=== PATIENT | male | born 1965 | race African-American/Black ===

== ENCOUNTER → 2017-07-14 | Outpatient (CLI) | payer SELFPAY | END | disposition home or self-care (01) | LOC: KCIC 11:44 | DX: S62.101D Fracture of unspecified carpal bone, right wrist, subsequent encounter for fracture with routine healing (principal); X58.XXXD Exposure to other specified factors, subsequent encounter | CPT/HCPCS: 73110 ==

== ENCOUNTER 2019-11-25 13:08 | Emergency (ER) | payer OTHER ==
[~2019-11-25] VITALS: Ht 170.2 cm; Wt 100.0 kg
[~2019-11-25 13:08] MED LIST: LISI1TAB20 PO
[2019-11-25] MEDS ORDERED: INSULIN LISPRO 300 UNITS/3 ML VIAL. SQ ONE (13:30)
[2019-11-25] MEDS ORDERED: IV NORMAL SALINE 1000ML BAG 1,000 ML IV ONE (13:30)
[2019-11-25 13:40] LABS: BILIRUBIN,URINE NEGATIVE (NEG); CLARITY,URINE CLEAR; COLOR,URINE YELLOW; NITRITE,URINE NEGATIVE (NEG); PH,URINE 5.5 (<5.0-8.0); PROTEIN,URINE NEGATIVE (NEG-TRACE); UROBILINOGEN,URINE 0.2 mg/dL (0.2 mg/dL)
[2019-11-25 13:46] LABS: BASO % 1 % (0-3); EOS # 0.1 x10^3/uL (0.0-0.7); EOS % 2 % (0-3); HEMATOCRIT 39.7 % (39.0-53.0); HEMOGLOBIN 13.4 g/dL (13.0-17.5); LYMPH # 1.6 x10^3/uL (1.0-4.8); LYMPH % 28 % (24-48); MEAN CORPUSCULAR HEMOGLOBIN 29 pg (25-35); MEAN CORPUSCULAR HGB CONC 34 g/dL (31-37); MEAN CORPUSCULAR VOLUME 86 fL (79-100); MONO # 0.5 x10^3/uL (0.0-1.1); MONO % 8 % (0-9); NEUT # 3.5 x10^3/uL (1.8-7.7); NEUT % 60 % (31-73); PLATELET COUNT 227 x10^3/uL (140-400); RED BLOOD COUNT 4.62 x10^6/uL (4.30-5.70); RED CELL DISTRIBUTION WIDTH 13.1 % (11.5-14.5); WHITE BLOOD COUNT 5.8 x10^3/uL (4.0-11.0)
[2019-11-25 14:02] LABS: ALBUMIN 3.7 g/dL (3.4-5.0); ALBUMIN/GLOBULIN RATIO 0.9 (1.0-1.7); CALCIUM 8.9 mg/dL (8.5-10.1); GFR 42.7; POTASSIUM 4.8 mmol/L (3.5-5.1); TOTAL BILIRUBIN 0.4 mg/dL (0.2-1.0); TOTAL PROTEIN 7.8 g/dL (6.4-8.2)
[2019-11-25 14:09] LABS: BACTERIA,URINE 0 /HPF (0-FEW); RBC,URINE OCC /HPF (0-2); WBC,URINE OCC /HPF (0-4)
[2019-11-25] MEDS ORDERED: INSULIN LISPRO 300 UNITS/3 ML VIAL. SQ STA (15:10)
[2019-11-25] MEDS ORDERED: METF500T16 PO (16:14)
--- NOTE | 2019-11-25 16:15 | PHYS DOC ---
Past Medical History Past Medical History: Hypertension Past Surgical History: Other Additional Past Surgical Histo: hernia repair Smoking Status: Never Smoker Alcohol Use: Occasionally Drug Use: None General Adult EDM: Chief Complaint: WEAKNESS/GENERALIZED HPI: HPI: Patient is a 54-year-old male who presents with a two-week history of polyuria polydipsia and general malaise. He also states that he has had some progressive lower extremity burning pain and some visual changes that have occurred over the course of the last month. At some point in the past he has been told that he was a borderline diabetic. He has not taken any diabetic medications. He does however take medication for high blood pressure. [] Review of Systems: Review of Systems: Constitutional: Denies fever or chills. [] Eyes: Gradual change in visual acuity. [] HENT: Denies nasal congestion or sore throat. [] Respiratory: Denies cough or shortness of breath. [] Cardiovascular: Denies chest pain or edema. [] GI: Denies abdominal pain, nausea, vomiting, bloody stools or diarrhea. [] : Denies dysuria. [] Musculoskeletal: Denies back pain or joint pain. [] Integument: Denies rash. [] Neurologic: Paresthesias lower legs [] Endocrine: Per HPI] Lymphatic: Denies swollen glands. [] Psychiatric: Denies depression or anxiety. [] Heart Score: Risk Factors: Risk Factors: DM, Current or recent (<one month) smoker, HTN, HLP, family history of CAD, obesity. Risk Scores: Score 0 - 3: 2.5% MACE over next 6 weeks - Discharge Home Score 4 - 6: 20.3% MACE over next 6 weeks - Admit for Clinical Observation Score 7 - 10: 72.7% MACE over next 6 weeks - Early Invasive Strategies Current Medications: Current Medications Medications (Trade) Dose Ordered Sig/Ely Start Time Stop Time Status Last Admin Dose Admin Insulin Human Lispro (HumaLOG) 8 units 1X STAT 11/25/19 15:10 11/25/19 15:14 DC 11/25/19 15:18 8 UNITS Sodium Chloride 1,000 ml @ 1,000 mls/hr 1X ONCE 11/25/19 13:30 11/25/19 14:29 DC 11/25/19 13:33 1,000 MLS/HR Allergies: Allergies: Allergies Coded Allergies Type Severity Reaction Last Updated Verified No Known Drug Allergies 11/18/13 No Physical Exam: PE: Constitutional: Well developed, well nourished, no acute distress, non-toxic appearance. [] HENT: Normocephalic, atraumatic, bilateral external ears normal, oropharynx moist, no oral exudates, nose normal. [] Eyes: PERRLA, EOMI, conjunctiva normal, no discharge. [] Neck: Normal range of motion, no tenderness, supple, no stridor. [] Cardiovascular:Heart rate regular rhythm, no murmur [] Lungs & Thorax: Bilateral breath sounds clear to auscultation [] Abdomen: Morbidly obese, bowel sounds normal, soft, no tenderness, no masses, no pulsatile masses. [] Skin: Warm, dry, no erythema, no rash. [] Back: No tenderness, no CVA tenderness. [] Extremities: No tenderness, no cyanosis, no clubbing, ROM intact, no edema. [] Neurologic: Alert and oriented X 3, normal motor function, normal sensory function, no focal deficits noted. [] Psychologic: Anxious [] Current Patient Data: Labs: Laboratory Tests Test 11/25/19 13:18 11/25/19 13:24 11/25/19 13:25 Glucose (Fingerstick) 517 mg/dL (70-99) *H Urine Collection Type Unknown Urine Color Yellow Urine Clarity Clear Urine pH 5.5 (<5.0-8.0) Urine Specific [place] >=1.030 (1.000-1.030) Urine Protein Negative mg/dL (NEG-TRACE) Urine Glucose (UA) >=1000 mg/dL (NEG) Urine Ketones (Stick) 15 mg/dL (NEG) Urine Blood Negative (NEG) Urine Nitrite Negative (NEG) Urine Bilirubin Negative (NEG) Urine Urobilinogen Dipstick 0.2 mg/dL (0.2 mg/dL) Urine Leukocyte Esterase Negative (NEG) Urine RBC Occ /HPF (0-2) Urine WBC Occ /HPF (0-4) Urine Bacteria 0 /HPF (0-FEW) White Blood Count 5.8 x10^3/uL (4.0-11.0) Red Blood Count 4.62 x10^6/uL (4.30-5.70) Hemoglobin 13.4 g/dL (13.0-17.5) Hematocrit 39.7 % (39.0-53.0) Mean Corpuscular Volume 86 fL (79-100) Mean Corpuscular Hemoglobin 29 pg (25-35) Mean Corpuscular Hemoglobin Concent 34 g/dL (31-37) Red Cell Distribution Width 13.1 % (11.5-14.5) Platelet Count 227 x10^3/uL (140-400) Neutrophils (%) (Auto) 60 % (31-73) Lymphocytes (%) (Auto) 28 % (24-48) Monocytes (%) (Auto) 8 % (0-9) Eosinophils (%) (Auto) 2 % (0-3) Basophils (%) (Auto) 1 % (0-3) Neutrophils # (Auto) 3.5 x10^3/uL (1.8-7.7) Lymphocytes # (Auto) 1.6 x10^3/uL (1.0-4.8) Monocytes # (Auto) 0.5 x10^3/uL (0.0-1.1) Eosinophils # (Auto) 0.1 x10^3/uL (0.0-0.7) Basophils # (Auto) 0.0 x10^3/uL (0.0-0.2) Sodium Level 133 mmol/L (136-145) L Potassium Level 4.8 mmol/L (3.5-5.1) Chloride Level 96 mmol/L (98-107) L Carbon Dioxide Level 30 mmol/L (21-32) Anion Gap 7 (6-14) Blood Urea Nitrogen 22 mg/dL (8-26) Creatinine 2.0 mg/dL (0.7-1.3) H Estimated GFR (Cockcroft-Gault) 42.7 BUN/Creatinine Ratio 11 (6-20) Glucose Level 622 mg/dL (70-99) *H Calcium Level 8.9 mg/dL (8.5-10.1) Total Bilirubin 0.4 mg/dL (0.2-1.0) Aspartate Amino Transferase (AST) 18 U/L (15-37) Alanine Aminotransferase (ALT) 32 U/L (16-63) Alkaline Phosphatase 104 U/L (46-116) Total Protein 7.8 g/dL (6.4-8.2) Albumin 3.7 g/dL (3.4-5.0) Albumin/Globulin Ratio 0.9 (1.0-1.7) L Laboratory Tests 11/25/19 13:25 Laboratory Tests 11/25/19 13:25 Vital Signs: Vital Signs Date Time Temp Pulse Resp B/P (MAP) Pulse Ox O2 Delivery O2 Flow Rate FiO2 11/25/19 13:20 98.4 81 16 141/75 (97) 96 Room Air 98.4 EKG: EKG: [] Radiology/Procedures: Radiology/Procedures: [] Course & Med Decision Making: Course & Med Decision Making Pertinent Labs and Imaging studies reviewed. (See chart for details) [ED course: Evaluation reveals a 54-year-old male with new to him diabetes. His blood sugar was in the 500 range. He was given a total of 18 units of regular insulin during his stay in the department. He remained essentially asymptomatic here. He did not have an anion gap. I will go ahead and start him on metfor min as an outpatient but have implored him to follow-up with a primary care physician in the next 1 week at the most. Given him advice on the diet and distracted him that it is extremely important that he take his diabetic medication as directed.] Dragon Disclaimer: Dragon Disclaimer: This electronic medical record was generated, in whole or in part, using a voice recognition dictation system. Departure Departure Impression: Primary Impression: New onset type 2 diabetes mellitus Disposition: HOME, SELF-CARE Condition: STABLE Referrals: Myron BARRAGAN MD (PCP) Patient Instructions: 2400 Calorie Diet for Diabetes Meal Planning, Diabetes Meal Planning Guide, Diabetes and Exercise-SportsMed, Diabetes and Foot Care, Diabetes and Standards of Medical Care, Diabetes, Keeping Your Heart and Blood Vessels Healthy, Diet - How To Increase Fiber In The Meal Plan For Diabetes, How to Avoid Diabetes Problems, Type 2 Diabetes Mellitus, Adult Additional Instructions: It is incredibly important that she follow-up with Dr. Barragan this coming week for a recheck. Please take your medication as directed. Carefully read your discharge instructions as there is an enormous amount of very important information included. Return to the emergency department with any new or concerning symptoms Scripts Metformin Hcl (METFORMIN HCL) 500 Mg Tablet 500 MG PO BIDWMEALS for ANTI-DIABETIC for 90 Days, #180 TAB 2 Refills Increase to 2 tablets in the morning and 1 tablet in the evening after 1 week and then increase to 2 tablets in the morning and 2 tablets at night after 2 full weeks of therapy. Prov: MO LYNN DO 11/25/19 MO LYNN DO November 25, 2019 16:14
[2019-11-25 16:16] VITALS: BP 136/76
== END 2019-11-25 16:31 | disposition home or self-care (01) ==
LOC: ER 13:08
DX: E11.9 Type 2 diabetes mellitus without complications (principal); R53.83 Other fatigue; R35.8 Other polyuria; I10 Essential (primary) hypertension; Z98.890 Other specified postprocedural states
CPT/HCPCS: 36415; 80053; 81001; 82962; 85025; 96372; 99285; J1815; J7030

== ENCOUNTER 2020-02-06 11:57 | Emergency (ER) | payer OTHER ==
[~2020-02-06] VITALS: Ht 170.2 cm; Wt 106.0 kg
[~2020-02-06 11:57] MED LIST changes: +METF500T16 PO
[2020-02-06 12:04] VITALS: BP 155/90
[2020-02-06] MEDS ORDERED: HYDROcodone/APAP 5/325MG 1 TAB TABLET PO ONE (12:15)
--- NOTE | 2020-02-06 12:18 | PHYS DOC ---
Past Medical History Past Medical History: Hypertension Past Surgical History: Other Additional Past Surgical Histo: hernia repair Smoking Status: Never Smoker Alcohol Use: Occasionally Drug Use: None General Adult EDM: Chief Complaint: ANKLE PROBLEM HPI: HPI: Patient is a 54 year old male who presents with was getting out of a vehicle and stepped backward with his right leg and stepped on a pile of dirt. This caused him to roll his right ankle outward. He states he can walk on it but cannot put much pressure on it. He states that pressure makes it worse. He has pain to the posterior malleus, lateral medial malleolus. 1+ swelling. There is tenderness to the lateral, medial, posterior malleolus. He states it does not radiate. He states is a throbbing type pain that he rates at 9 out of 10. He states he did not take any medications prior to coming. He states he has a history of hypertension, diabetes, hernia repair. Patient denies numbness or tingling, coolness of the skin, skin color change, laxity in the joint. Review of Systems: Review of Systems: Constitutional: Denies fever or chills. [] Eyes: Denies change in visual acuity. [] HENT: Denies nasal congestion or sore throat. [] Respiratory: Denies cough or shortness of breath. [] Cardiovascular: Denies chest pain. Right ankle 1+ edema. [] GI: Denies abdominal pain, nausea, vomiting, bloody stools or diarrhea. [] : Denies dysuria. [] Musculoskeletal: Denies back pain. Right ankle joint pain. [] Integument: Denies rash. [] Neurologic: Denies headache, focal weakness or sensory changes. [] Endocrine: Denies polyuria or polydipsia. [] Lymphatic: Denies swollen glands. [] Psychiatric: Denies depression or anxiety. [] Heart Score: Risk Factors: Risk Factors: DM, Current or recent (<one month) smoker, HTN, HLP, family history of CAD, obesity. Risk Scores: Score 0 - 3: 2.5% MACE over next 6 weeks - Discharge Home Score 4 - 6: 20.3% MACE over next 6 weeks - Admit for Clinical Observation Score 7 - 10: 72.7% MACE over next 6 weeks - Early Invasive Strategies Allergies: Allergies: Allergies Coded Allergies Type Severity Reaction Last Updated Verified No Known Drug Allergies 5/17/14 No Physical Exam: PE: Constitutional: Well developed, well nourished, no acute distress, non-toxic appearance. [] HENT: Normocephalic, atraumatic, bilateral external ears normal, oropharynx moist, no oral exudates, nose normal. [] Eyes: PERRLA, EOMI, conjunctiva normal, no discharge. [] Neck: Normal range of motion, no tenderness, supple, no stridor. [] Cardiovascular:Heart rate regular rhythm, no murmur [] Lungs & Thorax: Bilateral breath sounds clear to auscultation [] Abdomen: Bowel sounds normal, soft, no tenderness, no masses, no pulsatile masses. [] Skin: Warm, dry, no erythema, no rash. [] Back: No tenderness, no CVA tenderness. [] Extremities: Right posterior, medial, lateral ankle tenderness, no cyanosis, no clubbing, right ankle admitted ROM due to pain, 1+ edema. [] Neurologic: Alert and oriented X 3, normal motor function, normal sensory function, no focal deficits noted. [] Psychologic: Affect normal, judgement normal, mood normal. [] EKG: EKG: [] Radiology/Procedures: Radiology/Procedures: [] Impression: [facility] [address] [place] [address] IMAGING REPORT Signed PATIENT: LISANDRA OSBORNE MACCOUNT: [id number] : 1965 LOCATION: ER AGE: 54 SEX: M EXAM STATUS: REG ER ORD. PHYSICIAN: GUERRERO MENJIVAR APRN REASON: PAIN, ROLLED ANKLE OUTWARD PROCEDURE: ANKLE RIGHT 3V TIBIA FIBULA RIGHT, ANKLE RIGHT 3V, FOOT RIGHT 3V DATE: 02/06/2020 12:13 PM INDICATION: PAIN, ROLLED ANKLE OUTWARD COMPARISON: None. FINDINGS: Bones: There is no evidence of acute fracture or dislocation. Posterior and plantar calcaneal enthesophytes. Joints: The ankle mortise is congruent. No widening of the distal tibiofibular syndesmosis. Mild degenerative changes at the first MTP joint. Miscellaneous: Soft tissue swelling about the ankle. IMPRESSION: No evidence of acute fracture. Electronically signed by: Estephania Couch MD (02/06/2020 12:57 PM) [id number] DICTATED and SIGNED BY: ESTEPHANIA COUCH MD DATE: 02/06/20 1257 Course & Med Decision Making: Course & Med Decision Making Pertinent Labs and Imaging studies reviewed. (See chart for details) Alert and oriented x4. Ambulatory but limping on the right lower extremity. See HPI. No laxity in the joint. Patient can wiggle his toes. He does have limited range of motion due to pain in the right ankle. There is no deformity, abrasion or redness. Speaks in full complete sentences. Patient states he did not fall. He denies any pain to the tib-fib with palpation. There is no pain, deformity or swelling to the foot with palpation. Cap refill less than 3 second s. Right pedal pulse strong present. Skin pink warm and dry. Patient is placed in a air stirrup splint and Chance wrap. He will be given crutches if needed. I have referred him to orthopedics. [] [place] Disclaimer: [place] Disclaimer: This electronic medical record was generated, in whole or in part, using a voice recognition dictation system. Departure Departure Impression: Primary Impression: Ankle pain, left Qualified Codes: M25.572 - Pain in left ankle and joints of left foot Disposition: 01 HOME, SELF-CARE Condition: STABLE Referrals: Myron BARRAGAN MD (PCP) TAURUS GOMEZ MD Patient Instructions: Ankle Sprain Additional Instructions: Follow-up with orthopedic in the next week or so. Use ice and elevation to help with pain. Take medication as prescribed do not drive on medication or drink alcohol. Scripts Hydrocodone/Apap 5-325 (NORCO 5-325 TABLET) 1 Each Tablet 1 TAB PO PRN Q6HRS PRN for PAIN, #10 TAB 0 Refills Prov: GUERRERO MENJIVAR APRN 02/06/20 Justicifation of Admission Dx: Justifications for Admission: Justification of Admission Dx: N/A GUERRERO MENJIVAR APRN Feb 06, 2020 12:18
--- NOTE | 2020-02-06 13:00 | RAD ---
TIBIA FIBULA RIGHT, ANKLE RIGHT 3V, FOOT RIGHT 3V DATE: 02/06/2020 12:13 PM INDICATION: PAIN, ROLLED ANKLE OUTWARD COMPARISON: None. FINDINGS: Bones: There is no evidence of acute fracture or dislocation. Posterior and plantar calcaneal enthesophytes. Joints: The ankle mortise is congruent. No widening of the distal tibiofibular syndesmosis. Mild degenerative changes at the first MTP joint. Miscellaneous: Soft tissue swelling about the ankle. IMPRESSION: No evidence of acute fracture. Electronically signed by: Nathan Couch MD (02/06/2020 12:57 PM) [id number]
[2020-02-06] MEDS ORDERED: HYDR-3164 PO (13:09)
== END 2020-02-06 13:37 | disposition home or self-care (01) ==
LOC: ER 11:57
DX: M25.571 Pain in right ankle and joints of right foot (principal); M79.671 Pain in right foot; R60.0 Localized edema; I10 Essential (primary) hypertension; Z98.890 Other specified postprocedural states
CPT/HCPCS: 29515; 73590; 73610; 73630; 99284

== ENCOUNTER 2021-03-04 06:29 | Inpatient (IN) | payer OTHER ==
[~2021-03-04] VITALS: Ht 170.2 cm; Wt 119.8 kg
[~2021-03-04 06:29] MED LIST changes: +HYDR-3164 PO
--- NOTE | 2021-03-04 06:52 | ED.ADGEN ---
Past Medical History Past Medical History: Diabetes-Type II, Hypertension Past Surgical History: Other Additional Past Surgical Histo: hernia repair Smoking Status: Never Smoker Alcohol Use: Occasionally Drug Use: None General Adult EDM: Chief Complaint: SHORTNESS OF BREATH HPI: HPI: Patient is a 55-year-old male who arrives ambulatory to the emergency department complaining of continued shortness of air. Patient was diagnosed with coronavirus 1 week previously and has continued to be short of breath. The patient believes he should have had some improvement in his symptoms however he is continue to be short of air at rest. Patient also states he has had diarrhea during this time as well. Patient states he had one vaccination of the vaccination series. Patient states he has had myalgias as well as chills however he is unaware of any fevers. He further denies any history of chest pain. He is awake, alert and uncomfortable appearing. Of note upon arrival the patient had oxygen saturations in the mid 80s. Review of Systems: Review of Systems: Constitutional: Reports chills. Denies fever. [] Eyes: Denies change in visual acuity. [] HENT: Denies nasal congestion or sore throat. [] Respiratory: Reports shortness of air. Denies cough. [] Cardiovascular: Denies chest pain or edema. [] GI: Reports diarrhea. Denies abdominal pain, nausea, vomiting, bloody stools. [] : Denies dysuria. [] Musculoskeletal: Reports myalgias. Denies back pain or joint pain. [] Integument: Denies rash. [] Neurologic: Denies headache, focal weakness or sensory changes. [] Endocrine: Denies polyuria or polydipsia. [] Lymphatic: Denies swollen glands. [] Psychiatric: Denies depression or anxiety. [] Current Medications: Current Medications Medications (Trade) Dose Ordered Sig/Ely Start Time Stop Time Status Last Admin Dose Admin Acetaminophen (Tylenol) 650 mg PRN Q4HRS PRN 03/04/21 08:00 03/05/21 07:59 Methylprednisolone Sodium Succinate (SOLU-Medrol 125MG VIAL) 125 mg 1X ONCE 03/04/21 07:00 03/04/21 07:01 DC 03/04/21 07:17 125 MG Ondansetron HCl (Zofran) 4 mg PRN Q8HRS PRN 03/04/21 08:00 9/1/21 07:59 Allergies: Allergies: Allergies Coded Allergies Type Severity Reaction Last Updated Verified No Known Drug Allergies 11/18/13 No Physical Exam: PE: Constitutional: Well developed, well nourished, no acute distress, non-toxic appearance. [] HENT: Normocephalic, atraumatic, bilateral external ears normal, oropharynx moist, no oral exudates, nose normal. [] Eyes: PERRLA, EOMI, conjunctiva normal, no discharge. [] Neck: Normal range of motion, no tenderness, supple, no stridor. [] Cardiovascular:Heart rate regular rhythm, no murmur [] Lungs & Thorax: Bilateral breath sounds clear to auscultation [] Abdomen: Bowel sounds normal, soft, no tenderness, no masses, no pulsatile masses. [] Skin: Warm, dry, no erythema, no rash. [] Back: No tenderness, no CVA tenderness. [] Extremities: No tenderness, no cyanosis, no clubbing, ROM intact, no edema. [] Neurologic: Alert and oriented X 3, normal motor function, normal sensory function, no focal deficits noted. [] Psychologic: Affect normal, judgement normal, mood normal. [] Current Patient Data: Labs: Laboratory Tests Test 03/04/21 07:09 White Blood Count 7.0 x10^3/uL (4.0-11.0) Red Blood Count 4.28 x10^6/uL (4.30-5.70) L Hemoglobin 12.8 g/dL (13.0-17.5) L Hematocrit 36.3 % (39.0-53.0) L Mean Corpuscular Volume 85 fL (79-100) Mean Corpuscular Hemoglobin 30 pg (25-35) Mean Corpuscular Hemoglobin Concent 35 g/dL (31-37) Red Cell Distribution Width 13.3 % (11.5-14.5) Platelet Count 260 x10^3/uL (140-400) Neutrophils (%) (Auto) 85 % (31-73) H Lymphocytes (%) (Auto) 9 % (24-48) L Monocytes (%) (Auto) 5 % (0-9) Eosinophils (%) (Auto) 0 % (0-3) Basophils (%) (Auto) 1 % (0-3) Neutrophils # (Auto) 5.9 x10^3/uL (1.8-7.7) Lymphocytes # (Auto) 0.6 x10^3/uL (1.0-4.8) L Monocytes # (Auto) 0.4 x10^3/uL (0.0-1.1) Eosinophils # (Auto) 0.0 x10^3/uL (0.0-0.7) Basophils # (Auto) 0.0 x10^3/uL (0.0-0.2) Platelet Estimate Pending Sodium Level 131 mmol/L (136-145) L Potassium Level 4.1 mmol/L (3.5-5.1) Chloride Level 95 mmol/L (98-107) L Carbon Dioxide Level 30 mmol/L (21-32) Anion Gap 6 (6-14) Blood Urea Nitrogen 11 mg/dL (8-26) Creatinine 1.5 mg/dL (0.7-1.3) H Estimated GFR (Cockcroft-Gault) 49.0 BUN/Creatinine Ratio 7 (6-20) Glucose Level 222 mg/dL (70-99) H Calcium Level 8.3 mg/dL (8.5-10.1) L Total Bilirubin 0.4 mg/dL (0.2-1.0) Aspartate Amino Transferase (AST) 34 U/L (15-37) Alanine Aminotransferase (ALT) 25 U/L (16-63) Alkaline Phosphatase 61 U/L (46-116) Troponin I Quantitative < 0.017 ng/mL (0.000-0.055) HR-Huh-N-Type Natriuretic Peptide 288 pg/mL (0-124) H Total Protein 7.9 g/dL (6.4-8.2) Albumin 2.8 g/dL (3.4-5.0) L Albumin/Globulin Ratio 0.5 (1.0-1.7) L Laboratory Tests 03/04/21 07:09 Laboratory Tests 03/04/21 07:09 Vital Signs: Vital Signs Date Time Temp Pulse Resp B/P (MAP) Pulse Ox O2 Delivery O2 Flow Rate FiO2 03/04/21 06:50 90 26 95 4.0 03/04/21 06:45 98.2 146/106 Room Air 98.2 EKG: EKG: [] EKG was obtained at 7:30 AM and reveals a normal sinus rhythm with a ventricular rate of 84 bpm. There is no acute ST/T wave changes to denote ischemia. This is an otherwise normal-appearing EKG. Heart Score: C/O Chest Pain: No Risk Factors: Risk Factors: DM, Current or recent (<one month) smoker, HTN, HLP, family history of CAD, obesity. Risk Scores: Score 0 - 3: 2.5% MACE over next 6 weeks - Discharge Home Score 4 - 6: 20.3% MACE over next 6 weeks - Admit for Clinical Observation Score 7 - 10: 72.7% MACE over next 6 weeks - Early Invasive Strategies Radiology/Procedures: Radiology/Procedures: [] Impression: [facility] [address] [place], [place] [id number] IMAGING REPORT Signed PATIENT: LISANDRA OSBORNE MACCOUNT: [id number] : 1965 LOCATION: ER AGE: 55 SEX: M EXAM STATUS: REG ER ORD. PHYSICIAN: AN ELIZONDO DO REASON: soa PROCEDURE: PORTABLE CHEST 1V EXAM: XR CHEST 1V 03/04/2021 6:49 AM CLINICAL INDICATION: Shortness of air COMPARISON: None TECHNIQUE: AP upright view of the chest FINDINGS: The heart is at the upper limit of normal in size. Lungs are mildly hypoexpanded. There are patchy bilateral opacities. No pleural effusion or pneumothorax. No acute osseous abnormality. IMPRESSION: Upper limit of normal heart size with patchy bilateral opacities, which could be due to pneumonia or pulmonary edema. Electronically signed by: Xochilt Clinton MD (03/04/2021 7:36 AM) [id number] DICTATED and SIGNED BY: XOCHILT CLINTON MD DATE: 03/04/21 [id number] Course & Med Decision Making: Course & Med Decision Making Pertinent Labs and Imaging studies reviewed. (See chart for details) [] Dragon Disclaimer: Dragon Disclaimer: This electronic medical record was generated, in whole or in part, using a voice recognition dictation system. Departure Departure Impression: Primary Impression: COVID-19 Additional Impressions: Respiratory failure Hyperglycemia Renal insufficiency Poorly-controlled hypertension Disposition: ADMITTED INPATIENT Admitting Physician: DIEGO Condition: GUARDED Referrals: Myron BARRAGAN MD (PCP) Problem Qualifiers AN ELIZONDO DO Mar 04, 2021 06:52
[2021-03-04] MEDS ORDERED: methylPREDNISolone SOD SUCC PF 125 MG/2 ML VIAL. IV ONE (07:00)
[2021-03-04 07:23] LABS: BASO % 1 % (0-3); EOS % 0 % (0-3); HEMATOCRIT 36.3 % (39.0-53.0); HEMOGLOBIN 12.8 g/dL (13.0-17.5); LYMPH # 0.6 x10^3/uL (1.0-4.8); LYMPH % 9 % (24-48); MEAN CORPUSCULAR HEMOGLOBIN 30 pg (25-35); MEAN CORPUSCULAR HGB CONC 35 g/dL (31-37); MEAN CORPUSCULAR VOLUME 85 fL (79-100); MONO # 0.4 x10^3/uL (0.0-1.1); MONO % 5 % (0-9); NEUT # 5.9 x10^3/uL (1.8-7.7); NEUT % 85 % (31-73); PLATELET COUNT 260 x10^3/uL (140-400); RED BLOOD COUNT 4.28 x10^6/uL (4.30-5.70); RED CELL DISTRIBUTION WIDTH 13.3 % (11.5-14.5)
[2021-03-04 07:33] LABS: CALCIUM 8.3 mg/dL (8.5-10.1); CREATININE 1.5 mg/dL (0.7-1.3); POTASSIUM 4.1 mmol/L (3.5-5.1)
[2021-03-04 07:38] LABS: ALBUMIN 2.8 g/dL (3.4-5.0); ALBUMIN/GLOBULIN RATIO 0.5 (1.0-1.7); TOTAL BILIRUBIN 0.4 mg/dL (0.2-1.0); TOTAL PROTEIN 7.9 g/dL (6.4-8.2)
--- NOTE | 2021-03-04 07:38 | RAD ---
EXAM: XR CHEST 1V 03/04/2021 6:49 AM CLINICAL INDICATION: Shortness of air COMPARISON: None TECHNIQUE: AP upright view of the chest FINDINGS: The heart is at the upper limit of normal in size. Lungs are mildly hypoexpanded. There ar e patchy bilateral opacities. No pleural effusion or pneumothorax. No acute osseous abnormality. IMPRESSION: Upper limit of normal heart size with patchy bilateral opacities, which could be due to pneumonia or pulmonary edema. Electronically signed by: Xochilt Clinton MD (03/04/2021 7:36 AM) [id number]
--- NOTE | 2021-03-04 07:43 | EKG ---
[facility] [address] [place] [address] Test Date: 2021-03-04 Test Time: 07:30:17 Pat Name: LISANDRA OSBORNE Department: Room: Gender: Cardiologist: : 1965 Requested By: AN ELIZONDO Order Number: [id number] Reading MD: Measurements Intervals [place] Rate: 84 P: 43 RI: 204 QRS: 27 QRSD: 88 T: 24 QT: 378 QTc: 450 Interpretive Statements No previous ECG available for comparison
[2021-03-04] MEDS ORDERED: DEXTROSE 50% 25 GM / 50ML DISP.SYRIN. IV PRN (08:00)
[2021-03-04] MEDS ORDERED: ACETAMINOPHEN 325 MG TABLET. PO PRN ×2 (08:00)
[2021-03-04] MEDS ORDERED: ONDANSETRON PF 4 MG/2 ML VIAL. IVP PRN ×2 (08:00→08:15)
[2021-03-04] MEDS: INSULIN LISPRO 300 UNITS/3 ML VIAL. SQ SCH ×3 (08:00→17:24)
[2021-03-04] MEDS ORDERED: traMADol 50 MG TABLET PO PRN (08:00)
--- NOTE | 2021-03-04 08:04 | PDOC1 ---
History and Physical Date of Admission Date of Admission DATE: 03/04/21 TIME: 08:03 Identification/Chief Complaint Chief Complaint Shortness of breath Source Source: Patient History of Present Illness History of Present Illness Mr Nguyen is a 55-year-old male w/ PMHx prediabetes, HTN who arrives ambulatory to the emergency department complaining of continued shortness of breath. Patient was diagnosed with coronavirus 02/26/2021 and has continued to be short of breath. The patient believes he should have had some improvement in his symptoms however he is continue to be short of air at rest. Patient also states he has had diarrhea during this time as well and actually has had several "accidents". Had myalgias as well as chills as well as loss of appetite. In ED had oxygen saturations in the mid 80s, improved with 4L NCO2. 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 He did have his first dose of the [employer] vaccine on 02/10/2021 and was scheduled for his second dose prior to his symptoms beginning. EKG appears normal sinus rhythm with a ventricular rate of 84 bpm. There is no acute ST/T wave changes to denote ischemia. This is an otherwise normal- appearing EKG. Chest radiograph concerning for bilateral interstitial changes Labs WBC 7, Hb 12.8, platelets 260, NA 131, K4.1, BUN 11, CR 1.5, glucose 222, calcium 8.3, albumin 2.8, troponin 0, CRP 128.3, LFTs within normal laboratory limits. Admitted for further care. Past Medical History Cardiovascular: HTN Past Surgical History Past Surgical History: Hernia Repair Family History Family History: Diabetes, High Cholestrol, Hypertension Social History Smoke: No ALCOHOL: none Drugs: None Current Medications Current Medications Current Medications Methylprednisolone Sodium Succinate (SOLU-Medrol 125MG VIAL) 125 mg 1X ONCE IV Last administered on 03/04/21at 07:17; Start 03/04/21 at 07:00; Stop 03/04/21 at 07:01; Status DC Ondansetron HCl (Zofran) 4 mg PRN Q8HRS PRN IVP NAUSEA/VOMITING; Start 03/04/21 at 08:00; Stop 03/05/21 at 07:59 Acetaminophen (Tylenol) 650 mg PRN Q4HRS PRN PO FEVER > 100.3'F; Start 03/04/21 at 08:00; Stop 03/05/21 at 07:59 Active Scripts Active Weott 5-325 Tablet (Acetaminophen/Hydrocodone Bitart) 1 Each Tablet 1 Tab PO PRN Q6HRS PRN Metformin Hcl 500 Mg Tablet 500 Mg PO BIDWMEALS 90 Days Increase to 2 tablets in the morning and 1 tablet in the evening after 1 week and then increase to 2 tablets in the morning and 2 tablets at night after 2 full weeks of therapy. Reported Lisinopril-Hctz 20-25 Mg Tab (Lisinopril/Hydrochlorothiazide) 1 Each Tablet 1 Each PO DAILY Allergies Allergies: Coded Allergies: No Known Drug Allergies (Unverified , 11/18/13) ROS General: YES: Fatigue, Malaise, Appetite; No: Chills, Night Sweats, Other PSYCHOLOGICAL ROS: No: Anxiety, Behavioral Disorder, Concentration difficultie, Decreased libido, Depression, Disorientation, Hallucinations, Hostility, Irritablity, Memory difficulties, Mood Swings, Obsessive thoughts, Physical abuse, Sexual abuse, Sleep disturbances, Suicidal ideation, Other Eyes: No Blurry vision, No Decreased vision, No Double vision, No Dry eyes, No Excessive tearing, No Eye Pain, No Itchy Eyes, No Loss of vision, No Photophobia, No Scotomata, No Uses contacts, No Uses glasses, No Other HEENT: No: Heacaches, Visual Changes, Hearing change, Nasal congestion, Nasal discharge, Oral lesions, Sinus pain, Sore Throat, Epistaxis, Sneezing, Snoring, Tinnitus, Vertigo, Vocal changes, Other ALLERGY AND IMMUNOLOGY: No: Hives, Insect Bite Sensitivity, Itchy/Watery Eyes, Nasal Congestion, Post Nasal Drip, Seasonal Allergies, Other Hematological and Lymphatic: No: Bleeding Problems, Blood Clots, Blood Transfusions, Brusing, Night Sweats, Pallor, Swollen Lymph Nodes, Other ENDOCRINE: No: Breast Changes, Galactorrhea, Hair Pattern Changes, Hot Flashes, Malaise/lethargy, Mood Swings, Palpitations, Polydipsia/polyuria, Skin Changes, Temperature Intolerance, Unexpected Weight Changes, Other Breast: No New/Changing Breast Lumps, No Nipple changes, No Nipple discharge, No Other Respiratory: YES: Cough, Shortness of breath, SOB with excertion, Tachypnea; No: Hemoptysis, Orthopnea, Pleuritic Pain, Sputum Changes, Stridor, Wheezing, Other Cardiovascular: No Chest Pain, No Palpitations, No Orthopnea, No Paroxysmal Noc. Dyspnea, No Edema, No Lt Headedness, No Other Gastrointestinal: Yes Nausea, Yes Diarrhea; No Vomiting, No Abdominal Pain, No Constipation, No Melena, No Hematochezia, No Other Genitourinary: No Dysuria, No Frequency, No Incontinence, No Hematuria, No Retention, No Discharge, No Urgency, No Pain, No Flank Pain, No Other, No , No , No , No , No , No , No Musculoskeletal: No Gait Disturbance, No Joint Pain, No Joint Stiffness, No Joint Swelling, No Muscle Pain, No Muscular Weakness, No Pain In:, No Swelling In:, No Other Neurological: No Behavorial Changes, No Bowel/Bladder ControlChng, No Confusio n, No Dizziness, No Gait Disturbance, No Headaches, No Impaired Coord/balance, No Memory Loss, No Numbness/Tingling, No Seizures, No Speech Problems, No Tremors, No Visual Changes, No Weakness, No Other Skin: No Dry Skin, No Eczema, No Hair Changes, No Lumps, No Mole Changes, No Mottling, No Nail Changes, No Pruritus, No Rash, No Skin Lesion Changes, No Other, No Acne Physical Exam General: Alert, Oriented X3, Cooperative, moderate distress HEENT: Atraumatic, PERRLA, EOMI, Mucous membr. moist/pink Lungs: Other (Bilateral basilar crackles) Heart: S1S2, RRR, no thrills, no rubs, no gallops, no murmurs Abdomen: Normal bowel sounds, Soft, No tenderness, No hepatosplenomegaly, No masses Rectal Exam: not examined Extremities: No clubbing, No cyanosis, No edema, Normal pulses, No tenderness/swelling Skin: No rashes, No breakdown, No significant lesion Neuro: Normal gait, Normal speech, Strength at 5/5 X4 ext, Normal tone, Sensation intact, Cranial nerves 3-12 NL, Reflexes 2+ Psych/Mental Status: Mental status NL, Mood NL Vitals Vitals Vital Signs Date Time Temp Pulse Resp B/P (MAP) Pulse Ox O2 Delivery O2 Flow Rate FiO2 03/04/21 06:50 90 26 95 4.0 03/04/21 06:45 98.2 146/106 Room Air 98.2 Labs Labs Laboratory Tests Test 03/04/21 07:09 White Blood Count 7.0 x10^3/uL (4.0-11.0) Red Blood Count 4.28 x10^6/uL (4.30-5.70) Hemoglobin 12.8 g/dL (13.0-17.5) Hematocrit 36.3 % (39.0-53.0) Mean Corpuscular Volume 85 fL (79-100) Mean Corpuscular Hemoglobin 30 pg (25-35) Mean Corpuscular Hemoglobin Concent 35 g/dL (31-37) Red Cell Distribution Width 13.3 % (11.5-14.5) Platelet Count 260 x10^3/uL (140-400) Neutrophils (%) (Auto) 85 % (31-73) Lymphocytes (%) (Auto) 9 % (24-48) Monocytes (%) (Auto) 5 % (0-9) Eosinophils (%) (Auto) 0 % (0-3) Basophils (%) (Auto) 1 % (0-3) Neutrophils # (Auto) 5.9 x10^3/uL (1.8-7.7) Lymphocytes # (Auto) 0.6 x10^3/uL (1.0-4.8) Monocytes # (Auto) 0.4 x10^3/uL (0.0-1.1) Eosinophils # (Auto) 0.0 x10^3/uL (0.0-0.7) Basophils # (Auto) 0.0 x10^3/uL (0.0-0.2) Sodium Level 131 mmol/L (136-145) Potassium Level 4.1 mmol/L (3.5-5.1) Chloride Level 95 mmol/L (98-107) Carbon Dioxide Level 30 mmol/L (21-32) Anion Gap 6 (6-14) Blood Urea Nitrogen 11 mg/dL (8-26) Creatinine 1.5 mg/dL (0.7-1.3) Estimated GFR (Cockcroft-Gault) 49.0 BUN/Creatinine Ratio 7 (6-20) Glucose Level 222 mg/dL (70-99) Calcium Level 8.3 mg/dL (8.5-10.1) Total Bilirubin 0.4 mg/dL (0.2-1.0) Aspartate Amino Transf (AST/SGOT) 34 U/L (15-37) Alanine Aminotransferase (ALT/SGPT) 25 U/L (16-63) Alkaline Phosphatase 61 U/L (46-116) Troponin I Quantitative < 0.017 ng/mL (0.000-0.055) LU-Wtq-V-Type Natriuretic Peptide 288 pg/mL (0-124) Total Protein 7.9 g/dL (6.4-8.2) Albumin 2.8 g/dL (3.4-5.0) Albumin/Globulin Ratio 0.5 (1.0-1.7) Laboratory Tests Test 03/04/21 07:09 White Blood Count 7.0 x10^3/uL (4.0-11.0) Red Blood Count 4.28 x10^6/uL (4.30-5.70) Hemoglobin 12.8 g/dL (13.0-17.5) Hematocrit 36.3 % (39.0-53.0) Mean Corpuscular Volume 85 fL (79-100) Mean Corpuscular Hemoglobin 30 pg (25-35) Mean Corpuscular Hemoglobin Concent 35 g/dL (31-37) Red Cell Distribution Width 13.3 % (11.5-14.5) Platelet Count 260 x10^3/uL (140-400) Neutrophils (%) (Auto) 85 % (31-73) Lymphocytes (%) (Auto) 9 % (24-48) Monocytes (%) (Auto) 5 % (0-9) Eosinophils (%) (Auto) 0 % (0-3) Basophils (%) (Auto) 1 % (0-3) Neutrophils # (Auto) 5.9 x10^3/uL (1.8-7.7) Lymphocytes # (Auto) 0.6 x10^3/uL (1.0-4.8) Monocytes # (Auto) 0.4 x10^3/uL (0.0-1.1) Eosinophils # (Auto) 0.0 x10^3/uL (0.0-0.7) Basophils # (Auto) 0.0 x10^3/uL (0.0-0.2) Sodium Level 131 mmol/L (136-145) Potassium Level 4.1 mmol/L (3.5-5.1) Chloride Level 95 mmol/L (98-107) Carbon Dioxide Level 30 mmol/L (21-32) Anion Gap 6 (6-14) Blood Urea Nitrogen 11 mg/dL (8-26) Creatinine 1.5 mg/dL (0.7-1.3) Estimated GFR (Cockcroft-Gault) 49.0 BUN/Creatinine Ratio 7 (6-20) Glucose Level 222 mg/dL (70-99) Calcium Level 8.3 mg/dL (8.5-10.1) Total Bilirubin 0.4 mg/dL (0.2-1.0) Aspartate Amino Transf (AST/SGOT) 34 U/L (15-37) Alanine Aminotransferase (ALT/SGPT) 25 U/L (16-63) Alkaline Phosphatase 61 U/L (46-116) Troponin I Quantitative < 0.017 ng/mL (0.000-0.055) YM-Iap-S-Type Natriuretic Peptide 288 pg/mL (0-124) Total Protein 7.9 g/dL (6.4-8.2) Albumin 2.8 g/dL (3.4-5.0) Albumin/Globulin Ratio 0.5 (1.0-1.7) Images Images Chest radiograph: The heart is at the upper limit of normal in size. Lungs are mildly hypoexpanded. There are patchy bilateral opacities. No pleural effusion or pneumothorax. No acute osseous abnormality. IMPRESSION: Upper limit of normal heart size with patchy bilateral opacities, which could be due to pneumonia or pulmonary edema. VTE Prophylaxis Ordered VTE Prophylaxis Devices: No VTE Pharmacological Prophylaxi: Yes Assessment/Plan Assessment/Plan A/P: Acute respiratory failure with hypoxia -due to COVID-19 with COVID-19 related pneumonia. Will get standard care treatment with steroids and remdesivir wean O2. COVID-19 -empiric steroids and remdesivir. Supportive care and wean O2 as tolerated. PANDA -likely vasomotor nephropathy. Will monitor renal function hydrate. Hyponatremia -likely nutritional. Well monitor p.o. intake will give supplemental nutrition if necessary. Prediabetes - with hyperglycemia - likely has DM2, will place on basal bolus plus insulin while inpatient HTN - hold home lisinopril for PANDA, can resume if renal function improves, will give prn hydralazine and labetalol FEN - ADA PPX - heparin FULL CODE Dispo - inpatient Justifications for Admission Other Justification RICHARD TERRAZAS MD Mar 04, 2021 08:04
[2021-03-04 09:10] LABS: % LYMPHS 15 % (24-48); % MONOS 6 % (0-10); % SEGS 79 % (35-66); PLT ESTIMATE ADEQUATE (ADEQUATE)
[2021-03-04 09:11] LABS: OVALOCYTES OCC
[2021-03-04 11:00] VITALS: BP 173/101
[2021-03-04] MEDS ORDERED: LISI20TA18 PO (11:23)
[2021-03-04] MEDS ORDERED: REMDESIVIR LOAD in IV NORMAL SALINE 250ML TV IV ONE (12:00)
[2021-03-04] MEDS: THIAMINE 100 MG TABLET. PO SCH (12:20)
[2021-03-04] MEDS: ZINC SULFATE 220 MG CAPSULE. PO SCH (12:20)
[2021-03-04] MEDS: hydrALAZINE 20 MG/ML VIAL. IVP PRN ×2 (12:21→15:37)
[2021-03-04 15:00] VITALS: BP 209/125
[2021-03-04] MEDS: HEPARIN for SUB-Q USE 5,000 UNIT/ML VIAL. SQ SCH ×2 (15:38→22:05)
[2021-03-04] MEDS: LABETALOL 20 MG/4 ML DISP.SYRIN. IVP PRN (15:42)
[2021-03-04] MEDS ORDERED: IV NORMAL SALINE 1000ML BAG 1,000 ML IV ONE (15:45)
[2021-03-04 19:00] VITALS: BP 167/95
[2021-03-04] MEDS: INSULIN GLARGINE SYRINGE. SQ SCH (22:04)
[2021-03-04] MEDS: ZOLPIDEM 5 MG TABLET. PO PRN (22:28)
[2021-03-04 23:00] VITALS: BP 160/88
[2021-03-05 02:23] LABS: HEMOGLOBIN A1C 8.7 % (4.8-5.6)
[2021-03-05 03:00] VITALS: BP 172/106
[2021-03-05] MEDS: hydrALAZINE 20 MG/ML VIAL. IVP PRN ×2 (04:39→17:21)
[2021-03-05] MEDS: HEPARIN for SUB-Q USE 5,000 UNIT/ML VIAL. SQ SCH ×3 (05:43→21:01)
[2021-03-05 07:00] VITALS: BP 181/84
[2021-03-05 07:59] LABS: BASO % 0 % (0-3); EOS % 0 % (0-3); HEMATOCRIT 36.9 % (39.0-53.0); LYMPH # 0.9 x10^3/uL (1.0-4.8); LYMPH % 10 % (24-48); MEAN CORPUSCULAR HEMOGLOBIN 30 pg (25-35); MEAN CORPUSCULAR HGB CONC 35 g/dL (31-37); MEAN CORPUSCULAR VOLUME 86 fL (79-100); MONO # 0.9 x10^3/uL (0.0-1.1); MONO % 9 % (0-9); NEUT # 7.8 x10^3/uL (1.8-7.7); NEUT % 81 % (31-73); PLATELET COUNT 320 x10^3/uL (140-400); RED BLOOD COUNT 4.31 x10^6/uL (4.30-5.70); RED CELL DISTRIBUTION WIDTH 13.8 % (11.5-14.5); WHITE BLOOD COUNT 9.6 x10^3/uL (4.0-11.0)
[2021-03-05] MEDS: THIAMINE 100 MG TABLET. PO SCH (08:08)
[2021-03-05] MEDS: DEXAMETHASONE SOD PHOS 4 MG/ML VIAL IVP SCH (08:08)
[2021-03-05] MEDS: ZINC SULFATE 220 MG CAPSULE. PO SCH (08:08)
[2021-03-05] MEDS: INSULIN LISPRO 300 UNITS/3 ML VIAL. SQ SCH ×3 (08:09→17:12)
[2021-03-05] MEDS: guaiFENesin DM 200MG/20MG 10 ML SYRUP PO PRN ×2 (08:09→17:10)
[2021-03-05 08:32] LABS: ALBUMIN 2.6 g/dL (3.4-5.0); ALBUMIN/GLOBULIN RATIO 0.5 (1.0-1.7); CALCIUM 8.4 mg/dL (8.5-10.1); CREATININE 1.4 mg/dL (0.7-1.3); POTASSIUM 4.5 mmol/L (3.5-5.1); TOTAL BILIRUBIN 0.5 mg/dL (0.2-1.0); TOTAL PROTEIN 7.6 g/dL (6.4-8.2)
--- NOTE | 2021-03-05 09:59 | PDOC ---
PROGRESS NOTES Date of Service: DATE: 03/05/21 TIME: 09:58 Chief Complaint Chief Complaint Images Images Chest radiograph: The heart is at the upper limit of normal in size. Lungs are mildly hypoexpanded. There are patchy bilateral opacities. No pleural effusion or pneumothorax. No acute osseous abnormality. IMPRESSION: Upper limit of normal heart size with patchy bilateral opacities, which could be due to pneumonia or pulmonary edema. VTE Prophylaxis Ordered VTE Prophylaxis Devices: No VTE Pharmacological Prophylaxi: Yes Assessment/Plan Assessment/Plan A/P: Acute respiratory failure with hypoxia -due to COVID-19 with COVID-19 related pneumonia. Will get standard care treatment with steroids and remdesivir wean O2. COVID-19 -empiric steroids and remdesivir. Supportive care and wean O2 as tolerated. PANDA -likely vasomotor nephropathy. Will monitor renal function hydrate. Hyponatremia -likely nutritional. Well monitor p.o. intake will give supplement al nutrition if necessary. Prediabetes - with hyperglycemia - likely has DM2, will place on basal bolus plus insulin while inpatient HTN - hold home lisinopril for PANDA, can resume if renal function improves, will give prn hydralazine and labetalol FEN - ADA PPX - heparin FULL CODE Dispo - inpatient Justifications for Admission Justifications for Admission Other Justification HYPOXIA 03/05 History of Present Illness History of Present Illness Identification/Chief Complaint Chief Complaint Shortness of breath Source Source: Patient History of Present Illness History of Present Illness Mr Osbrone is a 55-year-old male w/ PMHx prediabetes, HTN who arrives ambulatory to the emergency department complaining of continued shortness of breath. Patient was diagnosed with coronavirus 02/26/2021 and has continued to be short of breath. The patient believes he should have had some improvement in his symptoms however he is continue to be short of air at rest. Patient also states he has had diarrhea during this time as well and actually has had several "accidents". Had myalgias as well as chills as well as loss of appetite. In ED had oxygen saturations in the mid 80s, improved with 4L NCO2. 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 He did have his first dose of the Pfizer vaccine on 02/10/2021 and was scheduled for his second dose prior to his symptoms beginning. EKG appears normal sinus rhythm with a ventricular rate of 84 bpm. There is no acute ST/T wave changes to denote ischemia. This is an otherwise normal- appearing EKG. Chest radiograph concerning for bilateral interstitial changes Labs WBC 7, Hb 12.8, platelets 260, NA 131, K4.1, BUN 11, CR 1.5, glucose 222, calcium 8.3, albumin 2.8, troponin 0, CRP 128.3, LFTs within normal laboratory limits. Admitted for further care. Past Medical History Cardiovascular: HTN Past Surgical History Past Surgical History: Hernia Repair Family History Family History: Diabetes, High Cholestrol, Hypertension Social History Smoke: No ALCOHOL: none Drugs: None Current Medications Current Medications Current Medications Methylprednisolone Sodium Succinate (SOLU-Medrol 125MG VIAL) 125 mg 1X ONCE IV Last administered on 03/04/21at 07:17; Start 03/04/21 at 07:00; Stop 03/04/21 at 07:01; Status DC Ondansetron HCl (Zofran) 4 mg PRN Q8HRS PRN IVP NAUSEA/VOMITING; Start 03/04/21 at 08:00; Stop 03/05/21 at 07:59 Acetaminophen (Tylenol) 650 mg PRN Q4HRS PRN PO FEVER > 100.3'F; Start 03/04/21 at 08:00; Stop 03/05/21 at 07:59 Active Scripts Active Yarnell 5-325 Tablet (Acetaminophen/Hydrocodone Bitart) 1 Each Tablet 1 Tab PO PRN Q6HRS PRN Metformin Hcl 500 Mg Tablet 500 Mg PO BIDWMEALS 90 Days Increase to 2 tablets in the morning and 1 tablet in the evening after 1 week and then increase to 2 tablets in the morning and 2 tablets at night after 2 full weeks of therapy. Reported Lisinopril-Hctz 20-25 Mg Tab (Lisinopril/Hydrochlorothiazide) 1 Each Tablet 1 Each PO DAILY Allergies Allergies: Coded Allergies: No Known Drug Allergies (Unverified , 11/18/13) ROS General: YES: Fatigue, Malaise, Appetite; No: Chills, Night Sweats, Other PSYCHOLOGICAL ROS: No: Anxiety, Behavioral Disorder, Concentration difficultie, Decreased libido, Depression, Disorientation, Hallucinations, Hostility, Irritablity, Memory difficulties, Mood Swings, Obsessive thoughts, Physical abuse, Sexual abuse, Sleep disturbances, Suicidal ideation, Other Eyes: No Blurry vision, No Decreased vision, No Double vision, No Dry eyes, No Excessive tearing, No Eye Pain, No Itchy Eyes, No Loss of vision, No Photophobia, No Scotomata, No Uses contacts, No Uses glasses, No Other HEENT: No: Heacaches, Visual Changes, Hearing change, Nasal congestion, Nasal discharge, Oral lesions, Sinus pain, Sore Throat, Epistaxis, Sneezing, Snoring, Tinnitus, Vertigo, Vocal changes, Other ALLERGY AND IMMUNOLOGY: No: Hives, Insect Bite Sensitivity, Itchy/Watery Eyes, Nasal Congestion, Post Nasal Drip, Seasonal Allergies, Other Hematological and Lymphatic: No: Bleeding Problems, Blood Clots, Blood Transfusions, Brusing, Night Sweats, Pallor, Swollen Lymph Nodes, Other ENDOCRINE: No: Breast Changes, Galactorrhea, Hair Pattern Changes, Hot Flashes, Malaise/lethargy, Mood Swings, Palpitations, Polydipsia/polyuria, Skin Changes, Temperature Intolerance, Unexpected Weight Changes, Other Breast: No New/Changing Breast Lumps, No Nipple changes, No Nipple discharge, No Other Respiratory: YES: Cough, Shortness of breath, SOB with excertion, Tachypnea; No: Hemoptysis, Orthopnea, Pleuritic Pain, Sputum Changes, Stridor, Wheezing, Other Cardiovascular: No Chest Pain, No Palpitations, No Orthopnea, No Paroxysmal Noc. Dyspnea, No Edema, No Lt Headedness, No Other Gastrointestinal: Yes Nausea, Yes Diarrhea; No Vomiting, No Abdominal Pain, No Constipation, No Melena, No Hematochezia, No Other Genitourinary: No Dysuria, No Frequency, No Incontinence, No Hematuria, No Retention, No Discharge, No Urgency, No Pain, No Flank Pain, No Other, No , No , No , No , No , No , No Musculoskeletal: No Gait Disturbance, No Joint Pain, No Joint Stiffness, No Joint Swelling, No Muscle Pain, No Muscular Weakness, No Pain In:, No Swelling In:, No Other Neurological: No Behavorial Changes, No Bowel/Bladder ControlChng, No Confusion, No Dizziness, No Gait Disturbance, No Headaches, No Impaired Coord/balance, No Memory Loss, No Numbness/Tingling, No Seizures, No Speech Problems, No Tremors, No Visual Changes, No Weakness, No Other Skin: No Dry Skin, No Eczema, No Hair Changes, No Lumps, No Mole Changes, No Mottling, No Nail Changes, No Pruritus, No Rash, No Skin Lesion Changes, No Other, No Acne 9-01 patchy bilateral opacities. No pleural effusion or pneumothorax. No acute osseous abnormality. 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 Will get standard care treatment with steroids and remdesivir wean O2. COVID-19 -empiric steroids and remdesivir. Supportive care and wean O2 as tolerated. PANDA -likely vasomotor nephropathy. Will monitor renal function hydrate. Hyponatremia -likely nutritional.monitor p.o. intake will give supplemental nut rition if necessary. Prediabetes - with hyperglycemia - likely has DM2, basal bolus plus insulin while inpatient HTN - hold home lisinopril for PANDA, can resume if renal function improves, will give prn hydralazine and labetalol FEN - ADA PPX - heparin FULL CODE Dispo - inpatient Vitals Vitals Vital Signs Date Time Temp Pulse Resp B/P (MAP) Pulse Ox O2 Delivery O2 Flow Rate FiO2 03/05/21 08:12 94 181/84 03/05/21 07:00 97.2 18 91 Nasal Cannula 4.0 97.2 Physical Exam General: Alert, Oriented X3, Cooperative, mild distress Heart: Regular rate, Normal S1, Normal S2 Lungs: Crackles Abdomen: Normal bowel sounds, Soft, No tenderness, No hepatosplenomegaly, No masses Extremities: No clubbing, No cyanosis, No edema, Normal pulses, No tenderness/swelling Skin: No rashes, No breakdown, No significant lesion Labs LABS PATIENT: LISANDRA OSBORNECOUNT: [id number] : 1965 LOCATION: ER AGE: 55 SEX: M EXAM STATUS: REG ER ORD. PHYSICIAN: AN ELIZONDO DO REASON: soa PROCEDURE: PORTABLE CHEST 1V EXAM: XR CHEST 1V 03/04/2021 6:49 AM CLINICAL INDICATION: Shortness of air COMPARISON: None TECHNIQUE: AP upright view of the chest FINDINGS: The heart is at the upper limit of normal in size. Lungs are mildly hypoexpanded. There are patchy bilateral opacities. No pleural effusion or pneumothorax. No acute osseous abnormality. IMPRESSION: Upper limit of normal heart size with patchy bilateral opacities, which could be due to pneumonia or pulmonary edema. Electronically signed by: Xochilt Clinton MD (03/04/2021 7:36 AM) [id number] DICTATED and SIGNED BY: XOCHILT CLINTON MD DATE: 03/04/21 [id number] PATIENT: LISANDRA OSBORNE MACCOUNT: [id number] : 1965 LOCATION: ER AGE: 55 SEX: M EXAM STATUS: REG ER ORD. PHYSICIAN: AN ELIZONDO DO REASON: soa PROCEDURE: PORTABLE CHEST 1V EXAM: XR CHEST 1V 03/04/2021 6:49 AM CLINICAL INDICATION: Shortness of air COMPARISON: None TECHNIQUE: AP upright view of the chest FINDINGS: The heart is at the upper limit of normal in size. Lungs are mildly hypoexpanded. There are patchy bilateral opacities. No pleural effusion or pneumothorax. No acute osseous abnormality. IMPRESSION: Upper limit of normal heart size with patchy bilateral opacities, which could be due to pneumonia or pulmonary edema. Electronically signed by: Xochilt Clinton MD (03/04/2021 7:36 AM) [id number] DICTATED and SIGNED BY: XOCHILT CLINTON MD DATE: 03/04/21 [id number] Laboratory Tests Test 03/04/21 11:48 03/04/21 17:13 03/04/21 21:03 03/05/21 06:50 Glucose (Fingerstick) 237 mg/dL (70-99) 341 mg/dL (70-99) 329 mg/dL (70-99) White Blood Count 9.6 x10^3/uL (4.0-11.0) Red Blood Count 4.31 x10^6/uL (4.30-5.70) Hemoglobin 13.0 g/dL (13.0-17.5) Hematocrit 36.9 % (39.0-53.0) Mean Corpuscular Volume 86 fL (79-100) Mean Corpuscular Hemoglobin 30 pg (25-35) Mean Corpuscular Hemoglobin Concent 35 g/dL (31-37) Red Cell Distribution Width 13.8 % (11.5-14.5) Platelet Count 320 x10^3/uL (140-400) Neutrophils (%) (Auto) 81 % (31-73) Lymphocytes (%) (Auto) 10 % (24-48) Monocytes (%) (Auto) 9 % (0-9) Eosinophils (%) (Auto) 0 % (0-3) Basophils (%) (Auto) 0 % (0-3) Neutrophils # (Auto) 7.8 x10^3/uL (1.8-7.7) Lymphocytes # (Auto) 0.9 x10^3/uL (1.0-4.8) Monocytes # (Auto) 0.9 x10^3/uL (0.0-1.1) Eosinophils # (Auto) 0.0 x10^3/uL (0.0-0.7) Basophils # (Auto) 0.0 x10^3/uL (0.0-0.2) Sodium Level 134 mmol/L (136-145) Potassium Level 4.5 mmol/L (3.5-5.1) Chloride Level 98 mmol/L (98-107) Carbon Dioxide Level 27 mmol/L (21-32) Anion Gap 9 (6-14) Blood Urea Nitrogen 18 mg/dL (8-26) Creatinine 1.4 mg/dL (0.7-1.3) Estimated GFR (Cockcroft-Gault) 53.0 BUN/Creatinine Ratio 13 (6-20) Glucose Level 252 mg/dL (70-99) Calcium Level 8.4 mg/dL (8.5-10.1) Total Bilirubin 0.5 mg/dL (0.2-1.0) Aspartate Amino Transf (AST/SGOT) 36 U/L (15-37) Alanine Aminotransferase (ALT/SGPT) 34 U/L (16-63) Alkaline Phosphatase 60 U/L (46-116) Total Protein 7.6 g/dL (6.4-8.2) Albumin 2.6 g/dL (3.4-5.0) Albumin/Globulin Ratio 0.5 (1.0-1.7) Test 03/05/21 07:35 Glucose (Fingerstick) 275 mg/dL (70-99) Assessment and Plan Assessmemt and Plan Problems Medical Problems: (1) COVID-19 Status: Acute (2) Hyperglycemia Status: Acute (3) Poorly-controlled hypertension Status: Acute (4) Renal insufficiency Status: Acute (5) Respiratory failure Status: Acute Comment Review of Relevant I have reviewed the following items tom (where applicable) has been applied. Labs Laboratory Tests Test 03/04/21 07:09 03/04/21 11:48 03/04/21 17:13 03/04/21 21:03 White Blood Count 7.0 x10^3/uL (4.0-11.0) Red Blood Count 4.28 x10^6/uL (4.30-5.70) Hemoglobin 12.8 g/dL (13.0-17.5) Hematocrit 36.3 % (39.0-53.0) Mean Corpuscular Volume 85 fL (79-100) Mean Corpuscular Hemoglobin 30 pg (25-35) Mean Corpuscular Hemoglobin Concent 35 g/dL (31-37) Red Cell Distribution Width 13.3 % (11.5-14.5) Platelet Count 260 x10^3/uL (140-400) Neutrophils (%) (Auto) 85 % (31-73) Lymphocytes (%) (Auto) 9 % (24-48) Monocytes (%) (Auto) 5 % (0-9) Eosinophils (%) (Auto) 0 % (0-3) Basophils (%) (Auto) 1 % (0-3) Neutrophils # (Auto) 5.9 x10^3/uL (1.8-7.7) Lymphocytes # (Auto) 0.6 x10^3/uL (1.0-4.8) Monocytes # (Auto) 0.4 x10^3/uL (0.0-1.1) Eosinophils # (Auto) 0.0 x10^3/uL (0.0-0.7) Basophils # (Auto) 0.0 x10^3/uL (0.0-0.2) Segmented Neutrophils % 79 % (35-66) Lymphocytes % 15 % (24-48) Monocytes % 6 % (0-10) Platelet Estimate Adequate (ADEQUATE) Ovalocytes Occ Sodium Level 131 mmol/L (136-145) Potassium Level 4.1 mmol/L (3.5-5.1) Chloride Level 95 mmol/L (98-107) Carbon Dioxide Level 30 mmol/L (21-32) Anion Gap 6 (6-14) Blood Urea Nitrogen 11 mg/dL (8-26) Creatinine 1.5 mg/dL (0.7-1.3) Estimated GFR (Cockcroft-Gault) 49.0 BUN/Creatinine Ratio 7 (6-20) Glucose Level 222 mg/dL (70-99) Hemoglobin A1c 8.7 % (4.8-5.6) Calcium Level 8.3 mg/dL (8.5-10.1) Total Bilirubin 0.4 mg/dL (0.2-1.0) Aspartate Amino Transf (AST/SGOT) 34 U/L (15-37) Alanine Aminotransferase (ALT/SGPT) 25 U/L (16-63) Alkaline Phosphatase 61 U/L (46-116) Troponin I Quantitative < 0.017 ng/mL (0.000-0.055) C-Reactive Protein, Quantitative 128.3 mg/L (0-3.3) BS-Yns-R-Type Natriuretic Peptide 288 pg/mL (0-124) Total Protein 7.9 g/dL (6.4-8.2) Albumin 2.8 g/dL (3.4-5.0) Albumin/Globulin Ratio 0.5 (1.0-1.7) Glucose (Fingerstick) 237 mg/dL (70-99) 341 mg/dL (70-99) 329 mg/dL (70-99) Test 03/05/21 06:50 03/05/21 07:35 White Blood Count 9.6 x10^3/uL (4.0-11.0) Red Blood Count 4.31 x10^6/uL (4.30-5.70) Hemoglobin 13.0 g/dL (13.0-17.5) Hematocrit 36.9 % (39.0-53.0) Mean Corpuscular Volume 86 fL (79-100) Mean Corpuscular Hemoglobin 30 pg (25-35) Mean Corpuscular Hemoglobin Concent 35 g/dL (31-37) Red Cell Distribution Width 13.8 % (11.5-14.5) Platelet Count 320 x10^3/uL (140-400) Neutrophils (%) (Auto) 81 % (31-73) Lymphocytes (%) (Auto) 10 % (24-48) Monocytes (%) (Auto) 9 % (0-9) Eosinophils (%) (Auto) 0 % (0-3) Basophils (%) (Auto) 0 % (0-3) Neutrophils # (Auto) 7.8 x10^3/uL (1.8-7.7) Lymphocytes # (Auto) 0.9 x10^3/uL (1.0-4.8) Monocytes # (Auto) 0.9 x10^3/uL (0.0-1.1) Eosinophils # (Auto) 0.0 x10^3/uL (0.0-0.7) Basophils # (Auto) 0.0 x10^3/uL (0.0-0.2) Sodium Level 134 mmol/L (136-145) Potassium Level 4.5 mmol/L (3.5-5.1) Chloride Level 98 mmol/L (98-107) Carbon Dioxide Level 27 mmol/L (21-32) Anion Gap 9 (6-14) Blood Urea Nitrogen 18 mg/dL (8-26) Creatinine 1.4 mg/dL (0.7-1.3) Estimated GFR (Cockcroft-Gault) 53.0 BUN/Creatinine Ratio 13 (6-20) Glucose Level 252 mg/dL (70-99) Calcium Level 8.4 mg/dL (8.5-10.1) Total Bilirubin 0.5 mg/dL (0.2-1.0) Aspartate Amino Transf (AST/SGOT) 36 U/L (15-37) Alanine Aminotransferase (ALT/SGPT) 34 U/L (16-63) Alkaline Phosphatase 60 U/L (46-116) Total Protein 7.6 g/dL (6.4-8.2) Albumin 2.6 g/dL (3.4-5.0) Albumin/Globulin Ratio 0.5 (1.0-1.7) Glucose (Fingerstick) 275 mg/dL (70-99) Laboratory Tests Test 03/04/21 11:48 03/04/21 17:13 03/04/21 21:03 03/05/21 06:50 Glucose (Fingerstick) 237 mg/dL (70-99) 341 mg/dL (70-99) 329 mg/dL (70-99) White Blood Count 9.6 x10^3/uL (4.0-11.0) Red Blood Count 4.31 x10^6/uL (4.30-5.70) Hemoglobin 13.0 g/dL (13.0-17.5) Hematocrit 36.9 % (39.0-53.0) Mean Corpuscular Volume 86 fL (79-100) Mean Corpuscular Hemoglobin 30 pg (25-35) Mean Corpuscular Hemoglobin Concent 35 g/dL (31-37) Red Cell Distribution Width 13.8 % (11.5-14.5) Platelet Count 320 x10^3/uL (140-400) Neutrophils (%) (Auto) 81 % (31-73) Lymphocytes (%) (Auto) 10 % (24-48) Monocytes (%) (Auto) 9 % (0-9) Eosinophils (%) (Auto) 0 % (0-3) Basophils (%) (Auto) 0 % (0-3) Neutrophils # (Auto) 7.8 x10^3/uL (1.8-7.7) Lymphocytes # (Auto) 0.9 x10^3/uL (1.0-4.8) Monocytes # (Auto) 0.9 x10^3/uL (0.0-1.1) Eosinophils # (Auto) 0.0 x10^3/uL (0.0-0.7) Basophils # (Auto) 0.0 x10^3/uL (0.0-0.2) Sodium Level 134 mmol/L (136-145) Potassium Level 4.5 mmol/L (3.5-5.1) Chloride Level 98 mmol/L (98-107) Carbon Dioxide Level 27 mmol/L (21-32) Anion Gap 9 (6-14) Blood Urea Nitrogen 18 mg/dL (8-26) Creatinine 1.4 mg/dL (0.7-1.3) Estimated GFR (Cockcroft-Gault) 53.0 BUN/Creatinine Ratio 13 (6-20) Glucose Level 252 mg/dL (70-99) Calcium Level 8.4 mg/dL (8.5-10.1) Total Bilirubin 0.5 mg/dL (0.2-1.0) Aspartate Amino Transf (AST/SGOT) 36 U/L (15-37) Alanine Aminotransferase (ALT/SGPT) 34 U/L (16-63) Alkaline Phosphatase 60 U/L (46-116) Total Protein 7.6 g/dL (6.4-8.2) Albumin 2.6 g/dL (3.4-5.0) Albumin/Globulin Ratio 0.5 (1.0-1.7) Test 03/05/21 07:35 Glucose (Fingerstick) 275 mg/dL (70-99) Medications Current Medications Methylprednisolone Sodium Succinate (SOLU-Medrol 125MG VIAL) 125 mg 1X ONCE IV Last administered on 03/04/21at 07:17; Start 03/04/21 at 07:00; Stop 03/04/21 at 07:01; Status DC Ondansetron HCl (Zofran) 4 mg PRN Q8HRS PRN IVP NAUSEA/VOMITING; Start 03/04/21 at 08:00; Stop 03/04/21 at 08:03; Status DC Acetaminophen (Tylenol) 650 mg PRN Q4HRS PRN PO FEVER > 100.3'F; Start 03/04/21 at 08:00; Stop 03/04/21 at 08:04; Status DC Ondansetron HCl (Zofran) 4 mg PRN Q4HRS PRN IVP NAUSEA/VOMITING; Start 03/04/21 at 08:15 Acetaminophen (Tylenol) 650 mg PRN Q6HRS PRN PO FEVER > 100.3'F; Start 03/04/21 at 08:00 Heparin Sodium (Porcine) (Heparin Sodium) 5,000 unit Q8HRS SQ Last administered on 03/05/21at 05:43; Start 03/04/21 at 14:00 Guaifenesin (Robitussin Dm) 10 ml PRN Q6HRS PRN PO COUGH Last administered on 03/05/21at 08:09; Start 03/04/21 at 08:00 Tramadol HCl (Ultram) 50 mg PRN Q6HRS PRN PO PAIN; Start 03/04/21 at 08:00 Thiamine Mononitrate (Vitamin B-1) 100 mg DAILY PO Last administered on 03/05/21at 08:08; Start 03/04/21 at 09:00 Zinc Sulfate (Orazinc) 220 mg DAILY PO Last administered on 03/05/21at 08:08; Start 03/04/21 at 09:00 Insulin Glargine (Lantus Syringe) 12 unit QHS SQ Last administered on 03/04/21at 22:04; Start 03/04/21 at 21:00 Insulin Human Lispro (HumaLOG) 0-9 UNITS TIDWMEALS SQ Last administered on 03/05/21at 08:09; Start 03/04/21 at 08:00 Dextrose (Dextrose 50%-Water Syringe) 12.5 gm PRN Q15MIN PRN IV SEE COMMENTS; Start 03/04/21 at 08:00 Remdesivir 200 mg/ Sodium Chloride 210 ml @ 210 mls/hr 1X ONCE IV Last administered on 03/04/21at 12:21; Start 03/04/21 at 12:00; Stop 03/04/21 at 12:59; Status DC Remdesivir 100 mg/ Sodium Chloride 230 ml @ 460 mls/hr Q24H IV ; Start 03/05/21 at 12:00; Stop 03/08/21 at 12:29 Hydralazine HCl (Apresoline Inj) 10 mg PRN Q4HRS PRN IVP ELEVATED BP, SEE COMMENTS Last administered on 03/05/21at 04:39; Start 03/04/21 at 11:45 Dexamethasone Sodium Phosphate (Decadron) 6 mg DAILY IVP Last administered on 03/05/21at 08:08; Start 03/05/21 at 09:00 Labetalol HCl (Normodyne Iv Push) 20 mg PRN Q4HRS PRN IVP HYPERTENSION Last administered on 03/04/21at 15:42; Start 03/04/21 at 15:45 Sodium Chloride 1,000 ml @ 75 mls/hr 1X ONCE IV Last administered on 03/04/21at 15:42; Start 03/04/21 at 15:45; Stop 03/05/21 at 05:04; Status DC Amlodipine Besylate (Norvasc) 10 mg 1X ONCE PO Last administered on 03/04/21at 18:06; Start 03/04/21 at 17:45; Stop 03/04/21 at 17:46; Status DC Amlodipine Besylate (Norvasc) 10 mg DAILY PO Last administered on 03/05/21at 08:12; Start 03/05/21 at 09:00 Zolpidem Tartrate (Ambien) 5 mg PRN QHS PRN PO INSOMNIA Last administered on 03/04/21at 22:28; Start 03/04/21 at 22:30 Active Scripts Active Reported Lisinopril 20 Mg Tablet 20 Mg PO DAILY Vitals/I & O Vital Sign - Last 24 Hours 03/04/21 03/04/21 03/04/21 03/04/21 10:36 11:00 11:08 12:21 Temp 99.3 99.3 Pulse 81 79 79 Resp B/P (MAP) 193/102 (132) 173/101 (125) 173/101 Pulse Ox 96 94 O2 Delivery Nasal Cannula Nasal Cannula O2 Flow Rate 4.0 4.0 03/04/21 03/04/21 03/04/21 03/04/21 15:00 15:37 15:42 18:06 Temp 98.9 98.9 Pulse 87 90 90 96 Resp B/P (MAP) 209/125 (153) 209/125 209/125 177/138 Pulse Ox 92 O2 Delivery Nasal Cannula O2 Flow Rate 4.0 03/04/21 03/04/21 03/04/21 03/05/21 19:00 20:00 23:00 03:00 Temp 99.3 98.7 97.3 99.3 98.7 97.3 Pulse 93 95 82 Resp 16 18 16 B/P (MAP) 167/95 (119) 160/88 (112) 172/106 (128) Pulse Ox 99 91 95 O2 Delivery Nasal Cannula Nasal Cannula Nasal Cannula O2 Flow Rate 4.0 4.0 4.0 03/05/21 03/05/21 03/05/21 04:39 07:00 08:12 Temp 97.2 97.2 Pulse 82 94 94 Resp 18 B/P (MAP) 172/106 181/84 (116) 181/84 Pulse Ox 91 O2 Delivery Nasal Cannula O2 Flow Rate 4.0 Intake and Output 03/04/21 03/04/21 03/05/21 15:00 23:00 07:00 Intake Total 180 ml Output Total 300 ml 1050 ml 600 ml Balance -300 ml -1050 ml -420 ml Justicifation of Admission Dx: Justifications for Admission: Justification of Admission Dx: N/A CHIKIS MANLEY MD Mar 05, 2021 09:59
--- NOTE | 2021-03-05 10:35 | NUR ---
SW following. Discussed with RN, pt from home, 4L (does not use oxygen at home), ada diet. COVID-19 positive. Med Assist following for self pay status. Oxygen will be $120 through [email or web address] if pt requires at discharge. SW will continue to follow.
[2021-03-05 11:00] VITALS: BP 159/83
[2021-03-05] MEDS: REMDESIVIR 100mg in NORMAL SALINE 250ML X 4 DAYS IV SCH (11:59)
[2021-03-05 15:00] VITALS: BP 175/89
[2021-03-05 19:00] VITALS: BP 184/91
[2021-03-05] MEDS: LABETALOL 20 MG/4 ML DISP.SYRIN. IVP PRN (20:22)
[2021-03-05] MEDS: ZOLPIDEM 5 MG TABLET. PO PRN (21:00)
[2021-03-05] MEDS: INSULIN GLARGINE SYRINGE. SQ SCH (21:01)
[2021-03-05 23:00] VITALS: BP 159/87
[2021-03-06] VITALS (8 sets, daily range): BP systolic 159–196; BP diastolic 82–98
[2021-03-06] MEDS: HEPARIN for SUB-Q USE 5,000 UNIT/ML VIAL. SQ SCH ×3 (06:10→20:57)
[2021-03-06] MEDS: INSULIN LISPRO 300 UNITS/3 ML VIAL. SQ SCH ×3 (09:16→17:42)
[2021-03-06] MEDS: DEXAMETHASONE SOD PHOS 4 MG/ML VIAL IVP SCH (09:17)
[2021-03-06] MEDS: ZINC SULFATE 220 MG CAPSULE. PO SCH (09:18)
[2021-03-06] MEDS: THIAMINE 100 MG TABLET. PO SCH (09:18)
--- NOTE | 2021-03-06 09:47 | PDOC ---
PROGRESS NOTES Date of Service: DATE: 03/06/21 TIME: 09:47 Chief Complaint Chief Complaint Images Images Chest radiograph: The heart is at the upper limit of normal in size. Lungs are mildly hypoexpanded. There are patchy bilateral opacities. No pleural effusion or pneumothorax. No acute osseous abnormality. IMPRESSION: Upper limit of normal heart size with patchy bilateral opacities, which could be due to pneumonia or pulmonary edema. VTE Prophylaxis Ordered VTE Prophylaxis Devices: No VTE Pharmacological Prophylaxi: Yes Assessment/Plan Assessment/Plan A/P: Acute respiratory failure with hypoxia -due to COVID-19 with COVID-19 related pneumonia. Will get standard care treatment with steroids and remdesivir wean O2. COVID-19 -empiric steroids and remdesivir. Supportive care and wean O2 as tolerated. PANDA -likely vasomotor nephropathy. Will monitor renal function hydrate. Hyponatremia -likely nutritional. Well monitor p.o. intake will give supplement al nutrition if necessary. Prediabetes - with hyperglycemia - likely has DM2, will place on basal bolus plus insulin while inpatient HTN - hold home lisinopril for PANDA, can resume if renal function improves, will give prn hydralazine and labetalol FEN - ADA PPX - heparin FULL CODE Dispo - inpatient Justifications for Admission Justifications for Admission Other Justification HYPOXIA 03/05 History of Present Illness History of Present Illness Identification/Chief Complaint Chief Complaint Shortness of breath Source Source: Patient History of Present Illness History of Present Illness Mr Nguyen is a 55-year-old male w/ PMHx prediabetes, HTN who arrives ambulatory to the emergency department complaining of continued shortness of breath. Patient was diagnosed with coronavirus 02/26/2021 and has continued to be short of breath. The patient believes he should have had some improvement in his symptoms however he is continue to be short of air at rest. Patient also states he has had diarrhea during this time as well and actually has had several "accidents". Had myalgias as well as chills as well as loss of appetite. In ED had oxygen saturations in the mid 80s, improved with 4L NCO2. 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 He did have his first dose of the Pfizer vaccine on 02/10/2021 and was scheduled for his second dose prior to his symptoms beginning. EKG appears normal sinus rhythm with a ventricular rate of 84 bpm. There is no acute ST/T wave changes to denote ischemia. This is an otherwise normal- appearing EKG. Chest radiograph concerning for bilateral interstitial changes Labs WBC 7, Hb 12.8, platelets 260, NA 131, K4.1, BUN 11, CR 1.5, glucose 222, calcium 8.3, albumin 2.8, troponin 0, CRP 128.3, LFTs within normal laboratory limits. Admitted for further care. Past Medical History Cardiovascular: HTN Past Surgical History Past Surgical History: Hernia Repair Family History Family History: Diabetes, High Cholestrol, Hypertension Social History Smoke: No ALCOHOL: none Drugs: None Current Medications Current Medications Current Medications Methylprednisolone Sodium Succinate (SOLU-Medrol 125MG VIAL) 125 mg 1X ONCE IV Last administered on 03/04/21at 07:17; Start 03/04/21 at 07:00; Stop 03/04/21 at 07:01; Status DC Ondansetron HCl (Zofran) 4 mg PRN Q8HRS PRN IVP NAUSEA/VOMITING; Start 03/04/21 at 08:00; Stop 03/05/21 at 07:59 Acetaminophen (Tylenol) 650 mg PRN Q4HRS PRN PO FEVER > 100.3'F; Start 03/04/21 at 08:00; Stop 03/05/21 at 07:59 Active Scripts Active Wells 5-325 Tablet (Acetaminophen/Hydrocodone Bitart) 1 Each Tablet 1 Tab PO PRN Q6HRS PRN Metformin Hcl 500 Mg Tablet 500 Mg PO BIDWMEALS 90 Days Increase to 2 tablets in the morning and 1 tablet in the evening after 1 week and then increase to 2 tablets in the morning and 2 tablets at night after 2 full weeks of therapy. Reported Lisinopril-Hctz 20-25 Mg Tab (Lisinopril/Hydrochlorothiazide) 1 Each Tablet 1 Each PO DAILY Allergies Allergies: Coded Allergies: No Known Drug Allergies (Unverified , 11/18/13) ROS General: YES: Fatigue, Malaise, Appetite; No: Chills, Night Sweats, Other PSYCHOLOGICAL ROS: No: Anxiety, Behavioral Disorder, Concentration difficultie, Decreased libido, Depression, Disorientation, Hallucinations, Hostility, Irritablity, Memory difficulties, Mood Swings, Obsessive thoughts, Physical abuse, Sexual abuse, Sleep disturbances, Suicidal ideation, Other Eyes: No Blurry vision, No Decreased vision, No Double vision, No Dry eyes, No Excessive tearing, No Eye Pain, No Itchy Eyes, No Loss of vision, No Photophobia, No Scotomata, No Uses contacts, No Uses glasses, No Other HEENT: No: Heacaches, Visual Changes, Hearing change, Nasal congestion, Nasal discharge, Oral lesions, Sinus pain, Sore Throat, Epistaxis, Sneezing, Snoring, Tinnitus, Vertigo, Vocal changes, Other ALLERGY AND IMMUNOLOGY: No: Hives, Insect Bite Sensitivity, Itchy/Watery Eyes, Nasal Congestion, Post Nasal Drip, Seasonal Allergies, Other Hematological and Lymphatic: No: Bleeding Problems, Blood Clots, Blood Transfusions, Brusing, Night Sweats, Pallor, Swollen Lymph Nodes, Other ENDOCRINE: No: Breast Changes, Galactorrhea, Hair Pattern Changes, Hot Flashes, Malaise/lethargy, Mood Swings, Palpitations, Polydipsia/polyuria, Skin Changes, Temperature Intolerance, Unexpected Weight Changes, Other Breast: No New/Changing Breast Lumps, No Nipple changes, No Nipple discharge, No Other Respiratory: YES: Cough, Shortness of breath, SOB with excertion, Tachypnea; No: Hemoptysis, Orthopnea, Pleuritic Pain, Sputum Changes, Stridor, Wheezing, Other Cardiovascular: No Chest Pain, No Palpitations, No Orthopnea, No Paroxysmal Noc. Dyspnea, No Edema, No Lt Headedness, No Other Gastrointestinal: Yes Nausea, Yes Diarrhea; No Vomiting, No Abdominal Pain, No Constipation, No Melena, No Hematochezia, No Other Genitourinary: No Dysuria, No Frequency, No Incontinence, No Hematuria, No Retention, No Discharge, No Urgency, No Pain, No Flank Pain, No Other, No , No , No , No , No , No , No Musculoskeletal: No Gait Disturbance, No Joint Pain, No Joint Stiffness, No Joint Swelling, No Muscle Pain, No Muscular Weakness, No Pain In:, No Swelling In:, No Other Neurological: No Behavorial Changes, No Bowel/Bladder ControlChng, No Confusion, No Dizziness, No Gait Disturbance, No Headaches, No Impaired Coord/balance, No Memory Loss, No Numbness/Tingling, No Seizures, No Speech Problems, No Tremors, No Visual Changes, No Weakness, No Other Skin: No Dry Skin, No Eczema, No Hair Changes, No Lumps, No Mole Changes, No Mottling, No Nail Changes, No Pruritus, No Rash, No Skin Lesion Changes, No Other, No Acne 03-05 patchy bilateral opacities. No pleural effusion or pneumothorax. No acute osseous abnormality. 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 Will get standard care treatment with steroids and remdesivir wean O2. COVID-19 -empiric steroids and remdesivir. Supportive care and wean O2 as tolerated. PANDA -likely vasomotor nephropathy. Will monitor renal function hydrate. Hyponatremia -likely nutritional.monitor p.o. intake will give supplemental nut rition if necessary. Prediabetes - with hyperglycemia - likely has DM2, basal bolus plus insulin while inpatient HTN - hold home lisinopril for PANDA, can resume if renal function improves, will give prn hydralazine and labetalol FEN - ADA PPX - heparin FULL CODE Dispo - inpatient 03-06 patchy bilateral opacities. No pleural effusion or pneumothorax. No acute osseous abnormality. 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 Will get standard care treatment with steroids and remdesivir wean O2. COVID-19 -empiric steroids and remdesivir. Supportive care and wean O2 as tolerated. PANDA -likely vasomotor nephropathy. Will monitor renal function hydrate. Hyponatremia -likely nutritional.monitor p.o. intake will give supplemental nutrition if necessary. Prediabetes - with hyperglycemia - likely has DM2, basal bolus plus insulin while inpatient HTN - hold home lisinopril for PANDA, can resume if renal function improves, will give prn hydralazine and labetalol FEN - ADA PPX - heparin FULL CODE Dispo - inpatient Vitals Vitals Vital Signs Date Time Temp Pulse Resp B/P (MAP) Pulse Ox O2 Delivery O2 Flow Rate FiO2 03/06/21 09:19 75 164/97 03/06/21 07:00 98.2 20 92 Nasal Cannula 4.0 98.2 Physical Exam General: Alert, Oriented X3, Cooperative, mild distress Heart: Regular rate, Normal S1, Normal S2 Lungs: Crackles Abdomen: Normal bowel sounds, Soft, No tenderness, No hepatosplenomegaly, No masses Extremities: No clubbing, No cyanosis, No edema, Normal pulses, No tenderness/swelling Skin: No rashes, No breakdown, No significant lesion Labs LABS Laboratory Tests Test 03/05/21 12:15 03/05/21 16:41 03/05/21 21:02 03/06/21 08:47 Glucose (Fingerstick) 249 mg/dL (70-99) 244 mg/dL (70-99) 271 mg/dL (70-99) 186 mg/dL (70-99) Assessment and Plan Assessmemt and Plan Problems Medical Problems: (1) COVID-19 Status: Acute (2) Hyperglycemia Status: Acute (3) Poorly-controlled hypertension Status: Acute (4) Renal insufficiency Status: Acute (5) Respiratory failure Status: Acute Comment Review of Relevant I have reviewed the following items tom (where applicable) has been applied. Labs Laboratory Tests Test 03/04/21 11:48 03/04/21 17:13 03/04/21 21:03 03/05/21 06:50 Glucose (Fingerstick) 237 mg/dL (70-99) 341 mg/dL (70-99) 329 mg/dL (70-99) White Blood Count 9.6 x10^3/uL (4.0-11.0) Red Blood Count 4.31 x10^6/uL (4.30-5.70) Hemoglobin 13.0 g/dL (13.0-17.5) Hematocrit 36.9 % (39.0-53.0) Mean Corpuscular Volume 86 fL (79-100) Mean Corpuscular Hemoglobin 30 pg (25-35) Mean Corpuscular Hemoglobin Concent 35 g/dL (31-37) Red Cell Distribution Width 13.8 % (11.5-14.5) Platelet Count 320 x10^3/uL (140-400) Neutrophils (%) (Auto) 81 % (31-73) Lymphocytes (%) (Auto) 10 % (24-48) Monocytes (%) (Auto) 9 % (0-9) Eosinophils (%) (Auto) 0 % (0-3) Basophils (%) (Auto) 0 % (0-3) Neutrophils # (Auto) 7.8 x10^3/uL (1.8-7.7) Lymphocytes # (Auto) 0.9 x10^3/uL (1.0-4.8) Monocytes # (Auto) 0.9 x10^3/uL (0.0-1.1) Eosinophils # (Auto) 0.0 x10^3/uL (0.0-0.7) Basophils # (Auto) 0.0 x10^3/uL (0.0-0.2) Sodium Level 134 mmol/L (136-145) Potassium Level 4.5 mmol/L (3.5-5.1) Chloride Level 98 mmol/L (98-107) Carbon Dioxide Level 27 mmol/L (21-32) Anion Gap 9 (6-14) Blood Urea Nitrogen 18 mg/dL (8-26) Creatinine 1.4 mg/dL (0.7-1.3) Estimated GFR (Cockcroft-Gault) 53.0 BUN/Creatinine Ratio 13 (6-20) Glucose Level 252 mg/dL (70-99) Calcium Level 8.4 mg/dL (8.5-10.1) Total Bilirubin 0.5 mg/dL (0.2-1.0) Aspartate Amino Transf (AST/SGOT) 36 U/L (15-37) Alanine Aminotransferase (ALT/SGPT) 34 U/L (16-63) Alkaline Phosphatase 60 U/L (46-116) Total Protein 7.6 g/dL (6.4-8.2) Albumin 2.6 g/dL (3.4-5.0) Albumin/Globulin Ratio 0.5 (1.0-1.7) Test 03/05/21 07:35 03/05/21 12:15 03/05/21 16:41 03/05/21 21:02 Glucose (Fingerstick) 275 mg/dL (70-99) 249 mg/dL (70-99) 244 mg/dL (70-99) 271 mg/dL (70-99) Test 03/06/21 08:47 Glucose (Fingerstick) 186 mg/dL (70-99) Laboratory Tests Test 03/05/21 12:15 03/05/21 16:41 03/05/21 21:02 03/06/21 08:47 Glucose (Fingerstick) 249 mg/dL (70-99) 244 mg/dL (70-99) 271 mg/dL (70-99) 186 mg/dL (70-99) Medications Current Medications Methylprednisolone Sodium Succinate (SOLU-Medrol 125MG VIAL) 125 mg 1X ONCE IV Last administered on 03/04/21at 07:17; Start 03/04/21 at 07:00; Stop 03/04/21 at 07:01; Status DC Ondansetron HCl (Zofran) 4 mg PRN Q8HRS PRN IVP NAUSEA/VOMITING; Start 03/04/21 at 08:00; Stop 03/04/21 at 08:03; Status DC Acetaminophen (Tylenol) 650 mg PRN Q4HRS PRN PO FEVER > 100.3'F; Start 03/04/21 at 08:00; Stop 03/04/21 at 08:04; Status DC Ondansetron HCl (Zofran) 4 mg PRN Q4HRS PRN IVP NAUSEA/VOMITING; Start 03/04/21 at 08:15 Acetaminophen (Tylenol) 650 mg PRN Q6HRS PRN PO FEVER > 100.3'F; Start 03/04/21 at 08:00 Heparin Sodium (Porcine) (Heparin Sodium) 5,000 unit Q8HRS SQ Last administered on 03/06/21at 06:10; Start 03/04/21 at 14:00 Guaifenesin (Robitussin Dm) 10 ml PRN Q6HRS PRN PO COUGH Last administered on 03/05/21at 17:10; Start 03/04/21 at 08:00 Tramadol HCl (Ultram) 50 mg PRN Q6HRS PRN PO PAIN; Start 03/04/21 at 08:00 Thiamine Mononitrate (Vitamin B-1) 100 mg DAILY PO Last administered on 03/06/21at 09:18; Start 03/04/21 at 09:00 Zinc Sulfate (Orazinc) 220 mg DAILY PO Last administered on 03/06/21at 09:18; Start 03/04/21 at 09:00 Insulin Glargine (Lantus Syringe) 12 unit QHS SQ Last administered on 03/05/21at 21:01; Start 03/04/21 at 21:00 Insulin Human Lispro (HumaLOG) 0-9 UNITS TIDWMEALS SQ Last administered on 03/06/21at 09:16; Start 03/04/21 at 08:00 Dextrose (Dextrose 50%-Water Syringe) 12.5 gm PRN Q15MIN PRN IV SEE COMMENTS; Start 03/04/21 at 08:00 Remdesivir 200 mg/ Sodium Chloride 210 ml @ 210 mls/hr 1X ONCE IV Last administered on 03/04/21at 12:21; Start 03/04/21 at 12:00; Stop 03/04/21 at 12:59; Status DC Remdesivir 100 mg/ Sodium Chloride 230 ml @ 460 mls/hr Q24H IV Last ad ministered on 03/05/21at 11:59; Start 03/05/21 at 12:00; Stop 03/08/21 at 12:29 Hydralazine HCl (Apresoline Inj) 10 mg PRN Q4HRS PRN IVP ELEVATED BP, SEE COMMENTS Last administered on 03/05/21at 17:21; Start 03/04/21 at 11:45 Dexamethasone Sodium Phosphate (Decadron) 6 mg DAILY IVP Last administered on 03/06/21at 09:17; Start 03/05/21 at 09:00 Labetalol HCl (Normodyne Iv Push) 20 mg PRN Q4HRS PRN IVP HYPERTENSION Last administered on 03/05/21at 20:22; Start 03/04/21 at 15:45 Sodium Chloride 1,000 ml @ 75 mls/hr 1X ONCE IV Last administered on 03/04/21at 15:42; Start 03/04/21 at 15:45; Stop 03/05/21 at 05:04; Status DC Amlodipine Besylate (Norvasc) 10 mg 1X ONCE PO Last administered on 03/04/21at 18:06; Start 03/04/21 at 17:45; Stop 03/04/21 at 17:46; Status DC Amlodipine Besylate (Norvasc) 10 mg DAILY PO Last administered on 03/06/21at 09:19; Start 03/05/21 at 09:00 Zolpidem Tartrate (Ambien) 5 mg PRN QHS PRN PO INSOMNIA Last administered on 03/05/21at 21:00; Start 03/04/21 at 22:30 Active Scripts Active Reported Lisinopril 20 Mg Tablet 20 Mg PO DAILY Vitals/I & O Vital Sign - Last 24 Hours 03/05/21 03/05/21 03/05/21 03/05/21 11:00 15:00 17:21 19:00 Temp 97.5 97.3 98.1 97.5 97.3 98.1 Pulse 85 81 72 93 Resp 18 18 20 B/P (MAP) 159/83 (108) 175/89 (117) 180/89 184/91 (122) Pulse Ox 91 93 93 O2 Delivery Nasal Cannula Nasal Cannula Nasal Cannula O2 Flow Rate 4.0 4.0 03/05/21 03/05/21 03/05/21 03/06/21 20:00 20:22 23:00 03:03 Temp 97.7 97.8 97.7 97.8 Pulse 93 80 Resp 20 B/P (MAP) 184/91 159/87 (111) 164/ Pulse Ox 92 O2 Delivery Nasal Cannula Room Air O2 Flow Rate 4.0 03/06/21 03/06/21 03/06/21 03/06/21 03:04 03:29 07:00 09:19 Temp 97.8 97.8 98.2 97.8 97.8 98.2 Pulse 84 75 71 75 Resp 20 20 20 B/P (MAP) 164/97 (119) 164/97 (119) 176/84 (114) 164/97 Pulse Ox 92 92 92 O2 Delivery Nasal Cannula Nasal Cannula Nasal Cannula O2 Flow Rate 4.0 4.0 Intake and Output 03/05/21 03/05/21 03/06/21 15:00 23:00 07:00 Intake Total 480 ml 240 ml Output Total 400 ml 600 ml Balance 480 ml -160 ml -600 ml Justicifation of Admission Dx: Justifications for Admission: Justification of Admission Dx: N/A CHIKIS MANLEY MD Mar 06, 2021 09:47
[2021-03-06 11:37] LABS: ALBUMIN 2.7 g/dL (3.4-5.0); ALBUMIN/GLOBULIN RATIO 0.6 (1.0-1.7); CALCIUM 8.5 mg/dL (8.5-10.1); CREATININE 1.4 mg/dL (0.7-1.3); POTASSIUM 4.3 mmol/L (3.5-5.1); TOTAL BILIRUBIN 0.5 mg/dL (0.2-1.0); TOTAL PROTEIN 7.6 g/dL (6.4-8.2)
--- NOTE | 2021-03-06 11:37 | NUR ---
SS following up with discharge planning. SS reviewed pt chart and discussed with pt RN. Pt is currently requiring oxygen at four liters nasal canula. COVID19 positive. Pt now on IV Remdesivir. Pt on IV Decadron. Self pay. Pt has no home oxygen. SS will continue to follow for discharge planning.
[2021-03-06 13:01] LABS: BASO # 0.1 x10^3/uL (0.0-0.2); BASO % 0 % (0-3); EOS % 0 % (0-3); HEMATOCRIT 36.2 % (39.0-53.0); HEMOGLOBIN 12.2 g/dL (13.0-17.5); LYMPH # 0.8 x10^3/uL (1.0-4.8); LYMPH % 6 % (24-48); MEAN CORPUSCULAR HEMOGLOBIN 29 pg (25-35); MEAN CORPUSCULAR HGB CONC 34 g/dL (31-37); MEAN CORPUSCULAR VOLUME 86 fL (79-100); MONO % 9 % (0-9); NEUT # 10.3 x10^3/uL (1.8-7.7); NEUT % 85 % (31-73); PLATELET COUNT 400 x10^3/uL (140-400); RED CELL DISTRIBUTION WIDTH 13.8 % (11.5-14.5); WHITE BLOOD COUNT 12.2 x10^3/uL (4.0-11.0)
[2021-03-06] MEDS: REMDESIVIR 100mg in NORMAL SALINE 250ML X 4 DAYS IV SCH (13:11)
[2021-03-06] MEDS: INSULIN GLARGINE SYRINGE. SQ SCH (20:58)
[2021-03-06] MEDS: guaiFENesin DM 200MG/20MG 10 ML SYRUP PO PRN (21:10)
[2021-03-07 03:00] VITALS: BP 162/82
[2021-03-07] MEDS: guaiFENesin DM 200MG/20MG 10 ML SYRUP PO PRN ×3 (03:17→21:17)
[2021-03-07] MEDS: HEPARIN for SUB-Q USE 5,000 UNIT/ML VIAL. SQ SCH ×3 (05:58→21:18)
[2021-03-07 07:00] VITALS: BP 202/105
[2021-03-07 07:49] LABS: ALBUMIN 2.7 g/dL (3.4-5.0); ALBUMIN/GLOBULIN RATIO 0.6 (1.0-1.7); CALCIUM 8.4 mg/dL (8.5-10.1); CREATININE 1.4 mg/dL (0.7-1.3); POTASSIUM 4.1 mmol/L (3.5-5.1); TOTAL BILIRUBIN 0.6 mg/dL (0.2-1.0); TOTAL PROTEIN 7.4 g/dL (6.4-8.2)
[2021-03-07] MEDS: INSULIN LISPRO 300 UNITS/3 ML VIAL. SQ SCH ×3 (08:00→17:43)
[2021-03-07] MEDS: ZINC SULFATE 220 MG CAPSULE. PO SCH (09:40)
[2021-03-07] MEDS: DEXAMETHASONE SOD PHOS 4 MG/ML VIAL IVP SCH (09:40)
[2021-03-07] MEDS: THIAMINE 100 MG TABLET. PO SCH (09:40)
[2021-03-07] MEDS ORDERED: hydrALAZINE 20 MG/ML VIAL. IVP PRN (10:45)
--- NOTE | 2021-03-07 10:47 | PDOC ---
PROGRESS NOTES Date of Service: DATE: 03/07/21 TIME: 10:43 Chief Complaint Chief Complaint Images Images Chest radiograph: The heart is at the upper limit of normal in size. Lungs are mildly hypoexpanded. There are patchy bilateral opacities. No pleural effusion or pneumothorax. No acute osseous abnormality. IMPRESSION: Upper limit of normal heart size with patchy bilateral opacities, which could be due to pneumonia or pulmonary edema. VTE Prophylaxis Ordered VTE Prophylaxis Devices: No VTE Pharmacological Prophylaxi: Yes Assessment/Plan Assessment/Plan A/P: Acute respiratory failure with hypoxia -due to COVID-19 with COVID-19 related pneumonia. Will get standard care treatment with steroids and remdesivir wean O2. COVID-19 -empiric steroids and remdesivir. Supportive care and wean O2 as tolerated. PANDA -likely vasomotor nephropathy. Will monitor renal function hydrate. Hyponatremia -likely nutritional. Well monitor p.o. intake will give supplement al nutrition if necessary. Prediabetes - with hyperglycemia - likely has DM2, will place on basal bolus plus insulin while inpatient HTN - hold home lisinopril for PANDA, can resume if renal function improves, will give prn hydralazine and labetalol FEN - ADA PPX - heparin FULL CODE Dispo - inpatient Justifications for Admission Justifications for Admission Other Justification HYPOXIA 03/05 History of Present Illness History of Present Illness Identification/Chief Complaint Chief Complaint Shortness of breath Source Source: Patient History of Present Illness History of Present Illness Mr Osborne is a 55-year-old male w/ PMHx prediabetes, HTN who arrives ambulatory to the emergency department complaining of continued shortness of breath. Patient was diagnosed with coronavirus 02/26/2021 and has continued to be short of breath. The patient believes he should have had some improvement in his symptoms however he is continue to be short of air at rest. Patient also states he has had diarrhea during this time as well and actually has had several "accidents". Had myalgias as well as chills as well as loss of appetite. In ED had oxygen saturations in the mid 80s, improved with 4L NCO2. 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 He did have his first dose of the Pfizer vaccine on 02/10/2021 and was scheduled for his second dose prior to his symptoms beginning. EKG appears normal sinus rhythm with a ventricular rate of 84 bpm. There is no acute ST/T wave changes to denote ischemia. This is an otherwise normal- appearing EKG. Chest radiograph concerning for bilateral interstitial changes Labs WBC 7, Hb 12.8, platelets 260, NA 131, K4.1, BUN 11, CR 1.5, glucose 222, calcium 8.3, albumin 2.8, troponin 0, CRP 128.3, LFTs within normal laboratory limits. Admitted for further care. Past Medical History Cardiovascular: HTN Past Surgical History Past Surgical History: Hernia Repair Family History Family History: Diabetes, High Cholestrol, Hypertension Social History Smoke: No ALCOHOL: none Drugs: None Current Medications Current Medications Current Medications Methylprednisolone Sodium Succinate (SOLU-Medrol 125MG VIAL) 125 mg 1X ONCE IV Last administered on 03/04/21at 07:17; Start 03/04/21 at 07:00; Stop 03/04/21 at 07:01; Status DC Ondansetron HCl (Zofran) 4 mg PRN Q8HRS PRN IVP NAUSEA/VOMITING; Start 03/04/21 at 08:00; Stop 03/05/21 at 07:59 Acetaminophen (Tylenol) 650 mg PRN Q4HRS PRN PO FEVER > 100.3'F; Start 03/04/21 at 08:00; Stop 03/05/21 at 07:59 Active Scripts Active [place] 5-325 Tablet (Acetaminophen/Hydrocodone Bitart) 1 Each Tablet 1 Tab PO PRN Q6HRS PRN Metformin Hcl 500 Mg Tablet 500 Mg PO BIDWMEALS 90 Days Increase to 2 tablets in the morning and 1 tablet in the evening after 1 week and then increase to 2 tablets in the morning and 2 tablets at night after 2 full weeks of therapy. Reported Lisinopril-Hctz 20-25 Mg Tab (Lisinopril/Hydrochlorothiazide) 1 Each Tablet 1 Each PO DAILY Allergies Allergies: Coded Allergies: No Known Drug Allergies (Unverified , 11/18/13) ROS General: YES: Fatigue, Malaise, Appetite; No: Chills, Night Sweats, Other PSYCHOLOGICAL ROS: No: Anxiety, Behavioral Disorder, Concentration difficultie, Decreased libido, Depression, Disorientation, Hallucinations, Hostility, Irritablity, Memory difficulties, Mood Swings, Obsessive thoughts, Physical abuse, Sexual abuse, Sleep disturbances, Suicidal ideation, Other Eyes: No Blurry vision, No Decreased vision, No Double vision, No Dry eyes, No Excessive tearing, No Eye Pain, No Itchy Eyes, No Loss of vision, No Photophobia, No Scotomata, No Uses contacts, No Uses glasses, No Other HEENT: No: Heacaches, Visual Changes, Hearing change, Nasal congestion, Nasal discharge, Oral lesions, Sinus pain, Sore Throat, Epistaxis, Sneezing, Snoring, Tinnitus, Vertigo, Vocal changes, Other ALLERGY AND IMMUNOLOGY: No: Hives, Insect Bite Sensitivity, Itchy/Watery Eyes, Nasal Congestion, Post Nasal Drip, Seasonal Allergies, Other Hematological and Lymphatic: No: Bleeding Problems, Blood Clots, Blood Transfusions, Brusing, Night Sweats, Pallor, Swollen Lymph Nodes, Other ENDOCRINE: No: Breast Changes, Galactorrhea, Hair Pattern Changes, Hot Flashes, Malaise/lethargy, Mood Swings, Palpitations, Polydipsia/polyuria, Skin Changes, Temperature Intolerance, Unexpected Weight Changes, Other Breast: No New/Changing Breast Lumps, No Nipple changes, No Nipple discharge, No Other Respiratory: YES: Cough, Shortness of breath, SOB with excertion, Tachypnea; No: Hemoptysis, Orthopnea, Pleuritic Pain, Sputum Changes, Stridor, Wheezing, Other Cardiovascular: No Chest Pain, No Palpitations, No Orthopnea, No Paroxysmal Noc. Dyspnea, No Edema, No Lt Headedness, No Other Gastrointestinal: Yes Nausea, Yes Diarrhea; No Vomiting, No Abdominal Pain, No Constipation, No Melena, No Hematochezia, No Other Genitourinary: No Dysuria, No Frequency, No Incontinence, No Hematuria, No Retention, No Discharge, No Urgency, No Pain, No Flank Pain, No Other, No , No , No , No , No , No , No Musculoskeletal: No Gait Disturbance, No Joint Pain, No Joint Stiffness, No Joint Swelling, No Muscle Pain, No Muscular Weakness, No Pain In:, No Swelling In:, No Other Neurological: No Behavorial Changes, No Bowel/Bladder ControlChng, No Confusion, No Dizziness, No Gait Disturbance, No Headaches, No Impaired Coord/balance, No Memory Loss, No Numbness/Tingling, No Seizures, No Speech Problems, No Tremors, No Visual Changes, No Weakness, No Other Skin: No Dry Skin, No Eczema, No Hair Changes, No Lumps, No Mole Changes, No Mottling, No Nail Changes, No Pruritus, No Rash, No Skin Lesion Changes, No Other, No Acne 03-05 patchy bilateral opacities. No pleural effusion or pneumothorax. No acute osseous abnormality. 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 Will get standard care treatment with steroids and remdesivir wean O2. COVID-19 -empiric steroids and remdesivir. Supportive care and wean O2 as tolerated. PANDA -likely vasomotor nephropathy. Will monitor renal function hydrate. Hyponatremia -likely nutritional.monitor p.o. intake will give supplemental nut rition if necessary. Prediabetes - with hyperglycemia - likely has DM2, basal bolus plus insulin while inpatient HTN - hold home lisinopril for PANDA, can resume if renal function improves, will give prn hydralazine and labetalol FEN - ADA PPX - heparin FULL CODE Dispo - inpatient 03-06 patchy bilateral opacities. No pleural effusion or pneumothorax. No acute osseous abnormality. 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 Will get standard care treatment with steroids and remdesivir wean O2. COVID-19 -empiric steroids and remdesivir. Supportive care and wean O2 as tolerated. PANDA -likely vasomotor nephropathy. Will monitor renal function hydrate. Hyponatremia -likely nutritional.monitor p.o. intake will give supplemental nutrition if necessary. Prediabetes - with hyperglycemia - likely has DM2, basal bolus plus insulin while inpatient HTN - hold home lisinopril for PANDA, can resume if renal function improves, will give prn hydralazine and labetalol FEN - ADA PPX - heparin FULL CODE Dispo - inpatient 03-07 BP LABILE IV HYDRALAZINE ADDED PRN 10 MG Q 4 HRS patchy bilateral opacities. No pleural effusion or pneumothorax. 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 Will get standard care treatment with steroids and remdesivir wean O2. COVID-19 -empiric steroids and remdesivir. Supportive care and wean O2 as tolerated. PANDA -likely vasomotor nephropathy. Will monitor renal function hydrate. Hyponatremia -likely nutritional.monitor p.o. intake will give supplemental nutrition if necessary. Prediabetes - with hyperglycemia - likely has DM2, basal bolus plus insulin while inpatient HTN - hold home lisinopril for PANDA, can resume if renal function improves, will give prn hydralazine and labetalol FEN - ADA d/w rn PPX - heparin FULL CODE Dispo - inpatient Vitals Vitals Vital Signs Date Time Temp Pulse Resp B/P (MAP) Pulse Ox O2 Delivery O2 Flow Rate FiO2 03/07/21 09:40 82 202/105 03/07/21 07:00 97.2 19 95 Nasal Cannula 5.0 97.2 Physical Exam General: Alert, Oriented X3, Cooperative, mild distress Heart: Regular rate, Normal S1, Normal S2 Lungs: Crackles Abdomen: Normal bowel sounds, Soft, No tenderness, No hepatosplenomegaly, No masses Extremities: No clubbing, No cyanosis, No edema, Normal pulses, No tenderness/swelling Skin: No rashes, No breakdown, No significant lesion Labs LABS PATIENT: LISANDRA OSBORNE MACCOUNT: [id number] : 1965 LOCATION: ER AGE: 55 SEX: M EXAM STATUS: REG ER ORD. PHYSICIAN: AN ELIZONDO DO REASON: soa PROCEDURE: PORTABLE CHEST 1V EXAM: XR CHEST 1V 03/04/2021 6:49 AM CLINICAL INDICATION: Shortness of air COMPARISON: None TECHNIQUE: AP upright view of the chest FINDINGS: The heart is at the upper limit of normal in size. Lungs are mildly hypoexpanded. There are patchy bilateral opacities. No pleural effusion or pneumothorax. No acute osseous abnormality. IMPRESSION: Upper limit of normal heart size with patchy bilateral opacities, which could be due to pneumonia or pulmonary edema. Electronically signed by: Xochilt Clinton MD (03/04/2021 7:36 AM) [id number] DICTATED and SIGNED BY: XOCHILT CLINTON MD DATE: 03/04/21 [id number] PATIENT: LISANDRA OSBORNE MACCOUNT: [id number] : 1965 LOCATION: ER AGE: 55 SEX: M EXAM STATUS: REG ER ORD. PHYSICIAN: AN ELIZONDO DO REASON: soa PROCEDURE: PORTABLE CHEST 1V EXAM: XR CHEST 1V 03/04/2021 6:49 AM CLINICAL INDICATION: Shortness of air COMPARISON: None TECHNIQUE: AP upright view of the chest FINDINGS: The heart is at the upper limit of normal in size. Lungs are mildly hypoexpanded. There are patchy bilateral opacities. No pleural effusion or pneumothorax. No acute osseous abnormality. IMPRESSION: Upper limit of normal heart size with patchy bilateral opacities, which could be due to pneumonia or pulmonary edema. Electronically signed by: Xochilt Clinton MD (03/04/2021 7:36 AM) [id number] DICTATED and SIGNED BY: XOCHILT CLINTON MD DATE: 03/04/21 [id number] Laboratory Tests Test 03/06/21 11:00 03/06/21 12:05 03/06/21 12:40 03/06/21 17:14 Sodium Level 135 mmol/L (136-145) Potassium Level 4.3 mmol/L (3.5-5.1) Chloride Level 98 mmol/L (98-107) Carbon Dioxide Level 31 mmol/L (21-32) Anion Gap 6 (6-14) Blood Urea Nitrogen 21 mg/dL (8-26) Creatinine 1.4 mg/dL (0.7-1.3) Estimated GFR (Cockcroft-Gault) 53.0 BUN/Creatinine Ratio 15 (6-20) Glucose Level 186 mg/dL (70-99) Calcium Level 8.5 mg/dL (8.5-10.1) Total Bilirubin 0.5 mg/dL (0.2-1.0) Aspartate Amino Transf (AST/SGOT) 18 U/L (15-37) Alanine Aminotransferase (ALT/SGPT) 26 U/L (16-63) Alkaline Phosphatase 62 U/L (46-116) Total Protein 7.6 g/dL (6.4-8.2) Albumin 2.7 g/dL (3.4-5.0) Albumin/Globulin Ratio 0.6 (1.0-1.7) Glucose (Fingerstick) 184 mg/dL (70-99) 269 mg/dL (70-99) White Blood Count 12.2 x10^3/uL (4.0-11.0) Red Blood Count 4.20 x10^6/uL (4.30-5.70) Hemoglobin 12.2 g/dL (13.0-17.5) Hematocrit 36.2 % (39.0-53.0) Mean Corpuscular Volume 86 fL (79-100) Mean Corpuscular Hemoglobin 29 pg (25-35) Mean Corpuscular Hemoglobin Concent 34 g/dL (31-37) Red Cell Distribution Width 13.8 % (11.5-14.5) Platelet Count 400 x10^3/uL (140-400) Neutrophils (%) (Auto) 85 % (31-73) Lymphocytes (%) (Auto) 6 % (24-48) Monocytes (%) (Auto) 9 % (0-9) Eosinophils (%) (Auto) 0 % (0-3) Basophils (%) (Auto) 0 % (0-3) Neutrophils # (Auto) 10.3 x10^3/uL (1.8-7.7) Lymphocytes # (Auto) 0.8 x10^3/uL (1.0-4.8) Monocytes # (Auto) 1.0 x10^3/uL (0.0-1.1) Eosinophils # (Auto) 0.0 x10^3/uL (0.0-0.7) Basophils # (Auto) 0.1 x10^3/uL (0.0-0.2) Test 03/06/21 19:27 03/07/21 06:45 03/07/21 07:57 Glucose (Fingerstick) 227 mg/dL (70-99) 120 mg/dL (70-99) Sodium Level 135 mmol/L (136-145) Potassium Level 4.1 mmol/L (3.5-5.1) Chloride Level 98 mmol/L (98-107) Carbon Dioxide Level 31 mmol/L (21-32) Anion Gap 6 (6-14) Blood Urea Nitrogen 20 mg/dL (8-26) Creatinine 1.4 mg/dL (0.7-1.3) Estimated GFR (Cockcroft-Gault) 53.0 BUN/Creatinine Ratio 14 (6-20) Glucose Level 124 mg/dL (70-99) Calcium Level 8.4 mg/dL (8.5-10.1) Total Bilirubin 0.6 mg/dL (0.2-1.0) Aspartate Amino Transf (AST/SGOT) 14 U/L (15-37) Alanine Aminotransferase (ALT/SGPT) 28 U/L (16-63) Alkaline Phosphatase 60 U/L (46-116) Total Protein 7.4 g/dL (6.4-8.2) Albumin 2.7 g/dL (3.4-5.0) Albumin/Globulin Ratio 0.6 (1.0-1.7) Assessment and Plan Assessmemt and Plan Problems Medical Problems: (1) COVID-19 Status: Acute (2) Hyperglycemia Status: Acute (3) Poorly-controlled hypertension Status: Acute (4) Renal insufficiency Status: Acute (5) Respiratory failure Status: Acute Comment Review of Relevant I have reviewed the following items tom (where applicable) has been applied. Labs Laboratory Tests Test 03/05/21 12:15 03/05/21 16:41 03/05/21 21:02 03/06/21 08:47 Glucose (Fingerstick) 249 mg/dL (70-99) 244 mg/dL (70-99) 271 mg/dL (70-99) 186 mg/dL (70-99) Test 03/06/21 11:00 03/06/21 12:05 03/06/21 12:40 03/06/21 17:14 Sodium Level 135 mmol/L (136-145) Potassium Level 4.3 mmol/L (3.5-5.1) Chloride Level 98 mmol/L (98-107) Carbon Dioxide Level 31 mmol/L (21-32) Anion Gap 6 (6-14) Blood Urea Nitrogen 21 mg/dL (8-26) Creatinine 1.4 mg/dL (0.7-1.3) Estimated GFR (Cockcroft-Gault) 53.0 BUN/Creatinine Ratio 15 (6-20) Glucose Level 186 mg/dL (70-99) Calcium Level 8.5 mg/dL (8.5-10.1) Total Bilirubin 0.5 mg/dL (0.2-1.0) Aspartate Amino Transf (AST/SGOT) 18 U/L (15-37) Alanine Aminotransferase (ALT/SGPT) 26 U/L (16-63) Alkaline Phosphatase 62 U/L (46-116) Total Protein 7.6 g/dL (6.4-8.2) Albumin 2.7 g/dL (3.4-5.0) Albumin/Globulin Ratio 0.6 (1.0-1.7) Glucose (Fingerstick) 184 mg/dL (70-99) 269 mg/dL (70-99) White Blood Count 12.2 x10^3/uL (4.0-11.0) Red Blood Count 4.20 x10^6/uL (4.30-5.70) Hemoglobin 12.2 g/dL (13.0-17.5) Hematocrit 36.2 % (39.0-53.0) Mean Corpuscular Volume 86 fL (79-100) Mean Corpuscular Hemoglobin 29 pg (25-35) Mean Corpuscular Hemoglobin Concent 34 g/dL (31-37) Red Cell Distribution Width 13.8 % (11.5-14.5) Platelet Count 400 x10^3/uL (140-400) Neutrophils (%) (Auto) 85 % (31-73) Lymphocytes (%) (Auto) 6 % (24-48) Monocytes (%) (Auto) 9 % (0-9) Eosinophils (%) (Auto) 0 % (0-3) Basophils (%) (Auto) 0 % (0-3) Neutrophils # (Auto) 10.3 x10^3/uL (1.8-7.7) Lymphocytes # (Auto) 0.8 x10^3/uL (1.0-4.8) Monocytes # (Auto) 1.0 x10^3/uL (0.0-1.1) Eosinophils # (Auto) 0.0 x10^3/uL (0.0-0.7) Basophils # (Auto) 0.1 x10^3/uL (0.0-0.2) Test 03/06/21 19:27 03/07/21 06:45 03/07/21 07:57 Glucose (Fingerstick) 227 mg/dL (70-99) 120 mg/dL (70-99) Sodium Level 135 mmol/L (136-145) Potassium Level 4.1 mmol/L (3.5-5.1) Chloride Level 98 mmol/L (98-107) Carbon Dioxide Level 31 mmol/L (21-32) Anion Gap 6 (6-14) Blood Urea Nitrogen 20 mg/dL (8-26) Creatinine 1.4 mg/dL (0.7-1.3) Estimated GFR (Cockcroft-Gault) 53.0 BUN/Creatinine Ratio 14 (6-20) Glucose Level 124 mg/dL (70-99) Calcium Level 8.4 mg/dL (8.5-10.1) Total Bilirubin 0.6 mg/dL (0.2-1.0) Aspartate Amino Transf (AST/SGOT) 14 U/L (15-37) Alanine Aminotransferase (ALT/SGPT) 28 U/L (16-63) Alkaline Phosphatase 60 U/L (46-116) Total Protein 7.4 g/dL (6.4-8.2) Albumin 2.7 g/dL (3.4-5.0) Albumin/Globulin Ratio 0.6 (1.0-1.7) Laboratory Tests Test 03/06/21 11:00 03/06/21 12:05 03/06/21 12:40 03/06/21 17:14 Sodium Level 135 mmol/L (136-145) Potassium Level 4.3 mmol/L (3.5-5.1) Chloride Level 98 mmol/L (98-107) Carbon Dioxide Level 31 mmol/L (21-32) Anion Gap 6 (6-14) Blood Urea Nitrogen 21 mg/dL (8-26) Creatinine 1.4 mg/dL (0.7-1.3) Estimated GFR (Cockcroft-Gault) 53.0 BUN/Creatinine Ratio 15 (6-20) Glucose Level 186 mg/dL (70-99) Calcium Level 8.5 mg/dL (8.5-10.1) Total Bilirubin 0.5 mg/dL (0.2-1.0) Aspartate Amino Transf (AST/SGOT) 18 U/L (15-37) Alanine Aminotransferase (ALT/SGPT) 26 U/L (16-63) Alkaline Phosphatase 62 U/L (46-116) Total Protein 7.6 g/dL (6.4-8.2) Albumin 2.7 g/dL (3.4-5.0) Albumin/Globulin Ratio 0.6 (1.0-1.7) Glucose (Fingerstick) 184 mg/dL (70-99) 269 mg/dL (70-99) White Blood Count 12.2 x10^3/uL (4.0-11.0) Red Blood Count 4.20 x10^6/uL (4.30-5.70) Hemoglobin 12.2 g/dL (13.0-17.5) Hematocrit 36.2 % (39.0-53.0) Mean Corpuscular Volume 86 fL (79-100) Mean Corpuscular Hemoglobin 29 pg (25-35) Mean Corpuscular Hemoglobin Concent 34 g/dL (31-37) Red Cell Distribution Width 13.8 % (11.5-14.5) Platelet Count 400 x10^3/uL (140-400) Neutrophils (%) (Auto) 85 % (31-73) Lymphocytes (%) (Auto) 6 % (24-48) Monocytes (%) (Auto) 9 % (0-9) Eosinophils (%) (Auto) 0 % (0-3) Basophils (%) (Auto) 0 % (0-3) Neutrophils # (Auto) 10.3 x10^3/uL (1.8-7.7) Lymphocytes # (Auto) 0.8 x10^3/uL (1.0-4.8) Monocytes # (Auto) 1.0 x10^3/uL (0.0-1.1) Eosinophils # (Auto) 0.0 x10^3/uL (0.0-0.7) Basophils # (Auto) 0.1 x10^3/uL (0.0-0.2) Test 03/06/21 19:27 03/07/21 06:45 03/07/21 07:57 Glucose (Fingerstick) 227 mg/dL (70-99) 120 mg/dL (70-99) Sodium Level 135 mmol/L (136-145) Potassium Level 4.1 mmol/L (3.5-5.1) Chloride Level 98 mmol/L (98-107) Carbon Dioxide Level 31 mmol/L (21-32) Anion Gap 6 (6-14) Blood Urea Nitrogen 20 mg/dL (8-26) Creatinine 1.4 mg/dL (0.7-1.3) Estimated GFR (Cockcroft-Gault) 53.0 BUN/Creatinine Ratio 14 (6-20) Glucose Level 124 mg/dL (70-99) Calcium Level 8.4 mg/dL (8.5-10.1) Total Bilirubin 0.6 mg/dL (0.2-1.0) Aspartate Amino Transf (AST/SGOT) 14 U/L (15-37) Alanine Aminotransferase (ALT/SGPT) 28 U/L (16-63) Alkaline Phosphatase 60 U/L (46-116) Total Protein 7.4 g/dL (6.4-8.2) Albumin 2.7 g/dL (3.4-5.0) Albumin/Globulin Ratio 0.6 (1.0-1.7) Medications Current Medications Methylprednisolone Sodium Succinate (SOLU-Medrol 125MG VIAL) 125 mg 1X ONCE IV Last administered on 03/04/21at 07:17; Start 03/04/21 at 07:00; Stop 03/04/21 at 07:01; Status DC Ondansetron HCl (Zofran) 4 mg PRN Q8HRS PRN IVP NAUSEA/VOMITING; Start 03/04/21 at 08:00; Stop 03/04/21 at 08:03; Status DC Acetaminophen (Tylenol) 650 mg PRN Q4HRS PRN PO FEVER > 100.3'F; Start 03/04/21 at 08:00; Stop 03/04/21 at 08:04; Status DC Ondansetron HCl (Zofran) 4 mg PRN Q4HRS PRN IVP NAUSEA/VOMITING; Start 03/04/21 at 08:15 Acetaminophen (Tylenol) 650 mg PRN Q6HRS PRN PO FEVER > 100.3'F; Start 03/04/21 at 08:00 Heparin Sodium (Porcine) (Heparin Sodium) 5,000 unit Q8HRS SQ Last administered on 03/07/21at 05:58; Start 03/04/21 at 14:00 Guaifenesin (Robitussin Dm) 10 ml PRN Q6HRS PRN PO COUGH Last administered on 03/07/21at 03:17; Start 03/04/21 at 08:00 Tramadol HCl (Ultram) 50 mg PRN Q6HRS PRN PO PAIN; Start 03/04/21 at 08:00 Thiamine Mononitrate (Vitamin B-1) 100 mg DAILY PO Last administered on 03/07/21at 09:40; Start 03/04/21 at 09:00 Zinc Sulfate (Orazinc) 220 mg DAILY PO Last administered on 03/07/21at 09:40; Start 03/04/21 at 09:00 Insulin Glargine (Lantus Syringe) 12 unit QHS SQ Last administered on 03/06/21at 20:58; Start 03/04/21 at 21:00 Insulin Human Lispro (HumaLOG) 0-9 UNITS TIDWMEALS SQ Last administered on 03/06at 17:42; Start 03/04/21 at 08:00 Dextrose (Dextrose 50%-Water Syringe) 12.5 gm PRN Q15MIN PRN IV SEE COMMENTS; Start 03/04/21 at 08:00 Remdesivir 200 mg/ Sodium Chloride 210 ml @ 210 mls/hr 1X ONCE IV Last administered on 03/04/21at 12:21; Start 03/04/21 at 12:00; Stop 03/04/21 at 12:59; Status DC Remdesivir 100 mg/ Sodium Chloride 230 ml @ 460 mls/hr Q24H IV Last adminis tered on 03/06/21at 13:11; Start 03/05/21 at 12:00; Stop 03/08/21 at 12:29 Hydralazine HCl (Apresoline Inj) 10 mg PRN Q4HRS PRN IVP ELEVATED BP, SEE COMMENTS Last administered on 03/05/21at 17:21; Start 03/04/21 at 11:45 Dexamethasone Sodium Phosphate (Decadron) 6 mg DAILY IVP Last administered on 03/07/21at 09:40; Start 03/05/21 at 09:00 Labetalol HCl (Normodyne Iv Push) 20 mg PRN Q4HRS PRN IVP HYPERTENSION Last administered on 03/05/21at 20:22; Start 03/04/21 at 15:45 Sodium Chloride 1,000 ml @ 75 mls/hr 1X ONCE IV Last administered on 03/04/21at 15:42; Start 03/04/21 at 15:45; Stop 03/05/21 at 05:04; Status DC Amlodipine Besylate (Norvasc) 10 mg 1X ONCE PO Last administered on 03/04/21at 18:06; Start 03/04/21 at 17:45; Stop 03/04/21 at 17:46; Status DC Amlodipine Besylate (Norvasc) 10 mg DAILY PO Last administered on 03/07/21at 09:40; Start 03/05/21 at 09:00 Zolpidem Tartrate (Ambien) 5 mg PRN QHS PRN PO INSOMNIA Last administered on 03/05/21at 21:00; Start 03/04/21 at 22:30 Active Scripts Active Reported Lisinopril 20 Mg Tablet 20 Mg PO DAILY Vitals/I & O Vital Sign - Last 24 Hours 03/06/21 03/06/21 03/06/21 03/06/21 11:00 15:00 19:00 20:16 Temp 98.0 98.5 98.9 98.0 98.5 98.9 Pulse 77 85 81 Resp 18 20 19 B/P (MAP) 196/89 (124) 159/82 (107) 194/98 (130) Pulse Ox 95 94 93 O2 Delivery Nasal Cannula Nasal Cannula Nasal Cannula Nasal Cannula O2 Flow Rate 4.0 4.0 5.0 4.0 03/06/21 03/07/21 03/07/21 03/07/21 22:36 03:00 07:00 09:40 Temp 97.9 97.9 97.2 97.9 97.9 97.2 Pulse 80 80 82 82 Resp 18 18 19 B/P (MAP) 168/88 (114) 162/82 (108) 202/105 (137) 202/105 Pulse Ox 92 93 95 O2 Delivery Nasal Cannula Nasal Cannula Nasal Cannula O2 Flow Rate 4.0 4.0 5.0 Intake and Output 03/06/21 03/06/21 03/07/21 15:00 23:00 07:00 Intake Total 500 ml 240 ml Output Total 500 ml 1200 ml 800 ml Balance 0 ml -960 ml -800 ml Justicifation of Admission Dx: Justifications for Admission: Justification of Admission Dx: N/A CHIKIS MANLEY MD Mar 07, 2021 10:47
[2021-03-07 11:00] VITALS: BP 213/98
[2021-03-07] MEDS: REMDESIVIR 100mg in NORMAL SALINE 250ML X 4 DAYS IV SCH (11:34)
[2021-03-07 15:00] VITALS: BP 182/99
--- NOTE | 2021-03-07 15:13 | RAD ---
EXAM: Chest, single view. HISTORY: Pneumonia. COMPARISON: 03/04/2021 FINDINGS: A frontal view of the chest is obtained. There has been interval increase in lower lobe pre dominant left lung interstitial and alveolar infiltrate superimposed on stable diffuse interstitial i nfiltrate. There is no pleural effusion or pneumothorax. There is a stable prominent cardiac silhouet te. IMPRESSION: Slight increased left lower lobe infiltrate superimposed on stable diffuse interstitial i nfiltrate. Electronically signed by: Natalie Plasencia MD (03/07/2021 3:10 PM) [id number]
[2021-03-07 19:00] VITALS: BP 179/104
[2021-03-07] MEDS: INSULIN GLARGINE SYRINGE. SQ SCH (21:19)
[2021-03-07] MEDS: hydrALAZINE 20 MG/ML VIAL. IVP PRN (21:20)
[2021-03-07] MEDS: ZOLPIDEM 5 MG TABLET. PO PRN (22:11)
[2021-03-07 23:02] VITALS: BP 174/96
[2021-03-08 04:23] VITALS: BP 173/99
[2021-03-08] MEDS: HEPARIN for SUB-Q USE 5,000 UNIT/ML VIAL. SQ SCH ×3 (06:02→21:21)
[2021-03-08 07:00] VITALS: BP 200/115
[2021-03-08] MEDS: INSULIN LISPRO 300 UNITS/3 ML VIAL. SQ SCH ×3 (08:00→18:12)
[2021-03-08 08:39] LABS: BASO % 0 % (0-3); EOS # 0.1 x10^3/uL (0.0-0.7); EOS % 1 % (0-3); HEMATOCRIT 36.7 % (39.0-53.0); HEMOGLOBIN 12.8 g/dL (13.0-17.5); LYMPH # 1.5 x10^3/uL (1.0-4.8); LYMPH % 16 % (24-48); MEAN CORPUSCULAR HEMOGLOBIN 30 pg (25-35); MEAN CORPUSCULAR HGB CONC 35 g/dL (31-37); MEAN CORPUSCULAR VOLUME 86 fL (79-100); MONO % 10 % (0-9); NEUT # 7.1 x10^3/uL (1.8-7.7); NEUT % 74 % (31-73); PLATELET COUNT 450 x10^3/uL (140-400); RED BLOOD COUNT 4.29 x10^6/uL (4.30-5.70); RED CELL DISTRIBUTION WIDTH 13.3 % (11.5-14.5); WHITE BLOOD COUNT 9.7 x10^3/uL (4.0-11.0)
[2021-03-08] MEDS: THIAMINE 100 MG TABLET. PO SCH (08:58)
[2021-03-08] MEDS: ZINC SULFATE 220 MG CAPSULE. PO SCH (08:58)
[2021-03-08] MEDS: DEXAMETHASONE SOD PHOS 4 MG/ML VIAL IVP SCH (08:59)
[2021-03-08] MEDS: hydrALAZINE 20 MG/ML VIAL. IVP PRN (09:00)
[2021-03-08 09:08] LABS: ALBUMIN 2.5 g/dL (3.4-5.0); ALBUMIN/GLOBULIN RATIO 0.5 (1.0-1.7); CALCIUM 8.3 mg/dL (8.5-10.1); CREATININE 1.2 mg/dL (0.7-1.3); GFR 63.3; TOTAL BILIRUBIN 0.4 mg/dL (0.2-1.0); TOTAL PROTEIN 7.2 g/dL (6.4-8.2)
--- NOTE | 2021-03-08 10:57 | PDOC ---
PROGRESS NOTES Date of Service: DATE: 03/08/21 TIME: 10:52 Chief Complaint Chief Complaint Images Images Chest radiograph: The heart is at the upper limit of normal in size. Lungs are mildly hypoexpanded. There are patchy bilateral opacities. No pleural effusion or pneumothorax. No acute osseous abnormality. IMPRESSION: Upper limit of normal heart size with patchy bilateral opacities, which could be due to pneumonia or pulmonary edema. VTE Prophylaxis Ordered VTE Prophylaxis Devices: No VTE Pharmacological Prophylaxi: Yes Assessment/Plan Assessment/Plan A/P: Acute respiratory failure with hypoxia -due to COVID-19 with COVID-19 related pneumonia. Will get standard care treatment with steroids and remdesivir wean O2. COVID-19 -empiric steroids and remdesivir. Supportive care and wean O2 as tolerated. PANDA -likely vasomotor nephropathy. Will monitor renal function hydrate. Hyponatremia -likely nutritional. Well monitor p.o. intake will give supplement al nutrition if necessary. Prediabetes - with hyperglycemia - likely has DM2, will place on basal bolus plus insulin while inpatient HTN - hold home lisinopril for PANDA, can resume if renal function improves, will give prn hydralazine and labetalol FEN - ADA PPX - heparin FULL CODE Dispo - inpatient Justifications for Admission Justifications for Admission Other Justification HYPOXIA 03/05 History of Present Illness History of Present Illness Identification/Chief Complaint Chief Complaint Shortness of breath Source Source: Patient History of Present Illness History of Present Illness Mr Osborne is a 55-year-old male w/ PMHx prediabetes, HTN who arrives ambulatory to the emergency department complaining of continued shortness of breath. Patient was diagnosed with coronavirus 02/26/2021 and has continued to be short of breath. The patient believes he should have had some improvement in his symptoms however he is continue to be short of air at rest. Patient also states he has had diarrhea during this time as well and actually has had several "accidents". Had myalgias as well as chills as well as loss of appetite. In ED had oxygen saturations in the mid 80s, improved with 4L NCO2. 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 He did have his first dose of the Pfizer vaccine on 02/10/2021 and was scheduled for his second dose prior to his symptoms beginning. EKG appears normal sinus rhythm with a ventricular rate of 84 bpm. There is no acute ST/T wave changes to denote ischemia. This is an otherwise normal- appearing EKG. Chest radiograph concerning for bilateral interstitial changes Labs WBC 7, Hb 12.8, platelets 260, NA 131, K4.1, BUN 11, CR 1.5, glucose 222, calcium 8.3, albumin 2.8, troponin 0, CRP 128.3, LFTs within normal laboratory limits. Admitted for further care. Past Medical History Cardiovascular: HTN Past Surgical History Past Surgical History: Hernia Repair Family History Family History: Diabetes, High Cholestrol, Hypertension Social History Smoke: No ALCOHOL: none Drugs: None Current Medications Current Medications Current Medications Methylprednisolone Sodium Succinate (SOLU-Medrol 125MG VIAL) 125 mg 1X ONCE IV Last administered on 03/04/21at 07:17; Start 03/04/21 at 07:00; Stop 03/04/21 at 07:01; Status DC Ondansetron HCl (Zofran) 4 mg PRN Q8HRS PRN IVP NAUSEA/VOMITING; Start 03/04/21 at 08:00; Stop 03/05/21 at 07:59 Acetaminophen (Tylenol) 650 mg PRN Q4HRS PRN PO FEVER > 100.3'F; Start 03/04/21 at 08:00; Stop 03/05/21 at 07:59 Active Scripts Active [place] 5-325 Tablet (Acetaminophen/Hydrocodone Bitart) 1 Each Tablet 1 Tab PO PRN Q6HRS PRN Metformin Hcl 500 Mg Tablet 500 Mg PO BIDWMEALS 90 Days Increase to 2 tablets in the morning and 1 tablet in the evening after 1 week and then increase to 2 tablets in the morning and 2 tablets at night after 2 full weeks of therapy. Reported Lisinopril-Hctz 20-25 Mg Tab (Lisinopril/Hydrochlorothiazide) 1 Each Tablet 1 Each PO DAILY Allergies Allergies: Coded Allergies: No Known Drug Allergies (Unverified , 11/18/13) ROS General: YES: Fatigue, Malaise, Appetite; No: Chills, Night Sweats, Other PSYCHOLOGICAL ROS: No: Anxiety, Behavioral Disorder, Concentration difficultie, Decreased libido, Depression, Disorientation, Hallucinations, Hostility, Irritablity, Memory difficulties, Mood Swings, Obsessive thoughts, Physical abuse, Sexual abuse, Sleep disturbances, Suicidal ideation, Other Eyes: No Blurry vision, No Decreased vision, No Double vision, No Dry eyes, No Excessive tearing, No Eye Pain, No Itchy Eyes, No Loss of vision, No Photophobia, No Scotomata, No Uses contacts, No Uses glasses, No Other HEENT: No: Heacaches, Visual Changes, Hearing change, Nasal congestion, Nasal discharge, Oral lesions, Sinus pain, Sore Throat, Epistaxis, Sneezing, Snoring, Tinnitus, Vertigo, Vocal changes, Other ALLERGY AND IMMUNOLOGY: No: Hives, Insect Bite Sensitivity, Itchy/Watery Eyes, Nasal Congestion, Post Nasal Drip, Seasonal Allergies, Other Hematological and Lymphatic: No: Bleeding Problems, Blood Clots, Blood Transfusions, Brusing, Night Sweats, Pallor, Swollen Lymph Nodes, Other ENDOCRINE: No: Breast Changes, Galactorrhea, Hair Pattern Changes, Hot Flashes, Malaise/lethargy, Mood Swings, Palpitations, Polydipsia/polyuria, Skin Changes, Temperature Intolerance, Unexpected Weight Changes, Other Breast: No New/Changing Breast Lumps, No Nipple changes, No Nipple discharge, No Other Respiratory: YES: Cough, Shortness of breath, SOB with excertion, Tachypnea; No: Hemoptysis, Orthopnea, Pleuritic Pain, Sputum Changes, Stridor, Wheezing, Other Cardiovascular: No Chest Pain, No Palpitations, No Orthopnea, No Paroxysmal Noc. Dyspnea, No Edema, No Lt Headedness, No Other Gastrointestinal: Yes Nausea, Yes Diarrhea; No Vomiting, No Abdominal Pain, No Constipation, No Melena, No Hematochezia, No Other Genitourinary: No Dysuria, No Frequency, No Incontinence, No Hematuria, No Retention, No Discharge, No Urgency, No Pain, No Flank Pain, No Other, No , No , No , No , No , No , No Musculoskeletal: No Gait Disturbance, No Joint Pain, No Joint Stiffness, No Joint Swelling, No Muscle Pain, No Muscular Weakness, No Pain In:, No Swelling In:, No Other Neurological: No Behavorial Changes, No Bowel/Bladder ControlChng, No Confusion, No Dizziness, No Gait Disturbance, No Headaches, No Impaired Coord/balance, No Memory Loss, No Numbness/Tingling, No Seizures, No Speech Problems, No Tremors, No Visual Changes, No Weakness, No Other Skin: No Dry Skin, No Eczema, No Hair Changes, No Lumps, No Mole Changes, No Mottling, No Nail Changes, No Pruritus, No Rash, No Skin Lesion Changes, No Other, No Acne 03-05 patchy bilateral opacities. No pleural effusion or pneumothorax. No acute osseous abnormality. 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 Will get standard care treatment with steroids and remdesivir wean O2. COVID-19 -empiric steroids and remdesivir. Supportive care and wean O2 as tolerated. PANDA -likely vasomotor nephropathy. Will monitor renal function hydrate. Hyponatremia -likely nutritional.monitor p.o. intake will give supplemental nut rition if necessary. Prediabetes - with hyperglycemia - likely has DM2, basal bolus plus insulin while inpatient HTN - hold home lisinopril for PANDA, can resume if renal function improves, will give prn hydralazine and labetalol FEN - ADA PPX - heparin FULL CODE Dispo - inpatient 03-06 patchy bilateral opacities. No pleural effusion or pneumothorax. No acute osseous abnormality. 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 Will get standard care treatment with steroids and remdesivir wean O2. COVID-19 -empiric steroids and remdesivir. Supportive care and wean O2 as tolerated. PANDA -likely vasomotor nephropathy. Will monitor renal function hydrate. Hyponatremia -likely nutritional.monitor p.o. intake will give supplemental nutrition if necessary. Prediabetes - with hyperglycemia - likely has DM2, basal bolus plus insulin while inpatient HTN - hold home lisinopril for PANDA, can resume if renal function improves, will give prn hydralazine and labetalol FEN - ADA PPX - heparin FULL CODE Dispo - inpatient 03-07 BP LABILE IV HYDRALAZINE ADDED PRN 10 MG Q 4 HRS patchy bilateral opacities. No pleural effusion or pneumothorax. 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 Will get standard care treatment with steroids and remdesivir wean O2. COVID-19 -empiric steroids and remdesivir. Supportive care and wean O2 as tolerated. PANDA -likely vasomotor nephropathy. Will monitor renal function hydrate. Hyponatremia -likely nutritional.monitor p.o. intake will give supplemental nutrition if necessary. Prediabetes - with hyperglycemia - likely has DM2, basal bolus plus insulin while inpatient HTN - hold home lisinopril for PANDA, can resume if renal function improves, will give prn hydralazine and labetalol FEN - ADA d/w rn PPX - heparin FULL CODE Dispo - inpatient 03-08 BP LABILE IV HYDRALAZINE ADDED PRN 10 MG Q 4 HRS and topral xl 25 mg po daily patchy bilateral opacities. No pleural effusion or pneumothorax. 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 Will get standard care treatment with steroids and remdesivir wean O2. COVID-19 -empiric steroids and remdesivir. Supportive care and wean O2 as tolerated. PANDA -likely vasomotor nephropathy. Will monitor renal function hydrate. Hyponatremia -likely nutritional.monitor p.o. intake will give supplemental nutrition if necessary. Prediabetes - with hyperglycemia - likely has DM2, basal bolus plus insulin while inpatient HTN - hold home lisinopril for PANDA, can resume if renal function improves, will give prn hydralazine and labetalol FEN - ADA d/w rn PPX - heparin FULL CODE Dispo - inpatient Vitals Vitals Vital Signs Date Time Temp Pulse Resp B/P (MAP) Pulse Ox O2 Delivery O2 Flow Rate FiO2 03/08/21 09:00 83 200/115 03/08/21 07:00 97.9 20 93 Nasal Cannula 97.9 03/07/21 20:00 4.0 Physical Exam General: Alert, Oriented X3, Cooperative, No acute distress Heart: Regular rate, Normal S1, Normal S2 Lungs: Crackles Abdomen: Normal bowel sounds, Soft, No tenderness, No hepatosplenomegaly, No masses Extremities: No clubbing, No cyanosis, No edema, Normal pulses, No tenderness/swelling Skin: No rashes, No breakdown, No significant lesion Labs LABS PATIENT: LISANDRA OSBORNE MACCOUNT: [id number] : 1965 LOCATION: [address] [place] [address] AGE: 55 SEX: M EXAM STATUS: ADM IN ORD. PHYSICIAN: CHIKIS MANLEY MD REASON: PNEUMONIA PROCEDURE: CHEST AP ONLY EXAM: Chest, single view. HISTORY: Pneumonia. COMPARISON: 03/04/2021 FINDINGS: A frontal view of the chest is obtained. There has been interval increase in lower lobe predominant left lung interstitial and alveolar infiltrate superimposed on stable diffuse interstitial infiltrate. There is no pleural effusion or pneumothorax. There is a stable prominent cardiac silhouette. IMPRESSION: Slight increased left lower lobe infiltrate superimposed on stable diffuse interstitial infiltrate. Electronically signed by: Natalie Puga MD (03/07/2021 3:10 PM) [id number] DICTATED and SIGNED BY: NATALIE PUGA MD DATE: 03/07/21 [id number] Laboratory Tests Test 03/07/21 11:32 03/07/21 17:21 03/07/21 20:45 03/08/21 07:19 Glucose (Fingerstick) 168 mg/dL (70-99) 201 mg/dL (70-99) 162 mg/dL (70-99) White Blood Count 9.7 x10^3/uL (4.0-11.0) Red Blood Count 4.29 x10^6/uL (4.30-5.70) Hemoglobin 12.8 g/dL (13.0-17.5) Hematocrit 36.7 % (39.0-53.0) Mean Corpuscular Volume 86 fL (79-100) Mean Corpuscular Hemoglobin 30 pg (25-35) Mean Corpuscular Hemoglobin Concent 35 g/dL (31-37) Red Cell Distribution Width 13.3 % (11.5-14.5) Platelet Count 450 x10^3/uL (140-400) Neutrophils (%) (Auto) 74 % (31-73) Lymphocytes (%) (Auto) 16 % (24-48) Monocytes (%) (Auto) 10 % (0-9) Eosinophils (%) (Auto) 1 % (0-3) Basophils (%) (Auto) 0 % (0-3) Neutrophils # (Auto) 7.1 x10^3/uL (1.8-7.7) Lymphocytes # (Auto) 1.5 x10^3/uL (1.0-4.8) Monocytes # (Auto) 1.0 x10^3/uL (0.0-1.1) Eosinophils # (Auto) 0.1 x10^3/uL (0.0-0.7) Basophils # (Auto) 0.0 x10^3/uL (0.0-0.2) Sodium Level 137 mmol/L (136-145) Potassium Level 4.0 mmol/L (3.5-5.1) Chloride Level 102 mmol/L (98-107) Carbon Dioxide Level 27 mmol/L (21-32) Anion Gap 8 (6-14) Blood Urea Nitrogen 22 mg/dL (8-26) Creatinine 1.2 mg/dL (0.7-1.3) Estimated GFR (Cockcroft-Gault) 63.3 BUN/Creatinine Ratio 18 (6-20) Glucose Level 113 mg/dL (70-99) Calcium Level 8.3 mg/dL (8.5-10.1) Total Bilirubin 0.4 mg/dL (0.2-1.0) Aspartate Amino Transf (AST/SGOT) 23 U/L (15-37) Alanine Aminotransferase (ALT/SGPT) 33 U/L (16-63) Alkaline Phosphatase 57 U/L (46-116) Total Protein 7.2 g/dL (6.4-8.2) Albumin 2.5 g/dL (3.4-5.0) Albumin/Globulin Ratio 0.5 (1.0-1.7) Test 03/08/21 08:04 Glucose (Fingerstick) 99 mg/dL (70-99) Assessment and Plan Assessmemt and Plan Problems Medical Problems: (1) COVID-19 Status: Acute (2) Hyperglycemia Status: Acute (3) Poorly-controlled hypertension Status: Acute (4) Renal insufficiency Status: Acute (5) Respiratory failure Status: Acute Comment Review of Relevant I have reviewed the following items tom (where applicable) has been applied. Labs Laboratory Tests Test 03/06/21 11:00 03/06/21 12:05 03/06/21 12:40 03/06/21 17:14 Sodium Level 135 mmol/L (136-145) Potassium Level 4.3 mmol/L (3.5-5.1) Chloride Level 98 mmol/L (98-107) Carbon Dioxide Level 31 mmol/L (21-32) Anion Gap 6 (6-14) Blood Urea Nitrogen 21 mg/dL (8-26) Creatinine 1.4 mg/dL (0.7-1.3) Estimated GFR (Cockcroft-Gault) 53.0 BUN/Creatinine Ratio 15 (6-20) Glucose Level 186 mg/dL (70-99) Calcium Level 8.5 mg/dL (8.5-10.1) Total Bilirubin 0.5 mg/dL (0.2-1.0) Aspartate Amino Transf (AST/SGOT) 18 U/L (15-37) Alanine Aminotransferase (ALT/SGPT) 26 U/L (16-63) Alkaline Phosphatase 62 U/L (46-116) Total Protein 7.6 g/dL (6.4-8.2) Albumin 2.7 g/dL (3.4-5.0) Albumin/Globulin Ratio 0.6 (1.0-1.7) Glucose (Fingerstick) 184 mg/dL (70-99) 269 mg/dL (70-99) White Blood Count 12.2 x10^3/uL (4.0-11.0) Red Blood Count 4.20 x10^6/uL (4.30-5.70) Hemoglobin 12.2 g/dL (13.0-17.5) Hematocrit 36.2 % (39.0-53.0) Mean Corpuscular Volume 86 fL (79-100) Mean Corpuscular Hemoglobin 29 pg (25-35) Mean Corpuscular Hemoglobin Concent 34 g/dL (31-37) Red Cell Distribution Width 13.8 % (11.5-14.5) Platelet Count 400 x10^3/uL (140-400) Neutrophils (%) (Auto) 85 % (31-73) Lymphocytes (%) (Auto) 6 % (24-48) Monocytes (%) (Auto) 9 % (0-9) Eosinophils (%) (Auto) 0 % (0-3) Basophils (%) (Auto) 0 % (0-3) Neutrophils # (Auto) 10.3 x10^3/uL (1.8-7.7) Lymphocytes # (Auto) 0.8 x10^3/uL (1.0-4.8) Monocytes # (Auto) 1.0 x10^3/uL (0.0-1.1) Eosinophils # (Auto) 0.0 x10^3/uL (0.0-0.7) Basophils # (Auto) 0.1 x10^3/uL (0.0-0.2) Test 03/06/21 19:27 03/07/21 06:45 03/07/21 07:57 03/07/21 11:32 Glucose (Fingerstick) 227 mg/dL (70-99) 120 mg/dL (70-99) 168 mg/dL (70-99) Sodium Level 135 mmol/L (136-145) Potassium Level 4.1 mmol/L (3.5-5.1) Chloride Level 98 mmol/L (98-107) Carbon Dioxide Level 31 mmol/L (21-32) Anion Gap 6 (6-14) Blood Urea Nitrogen 20 mg/dL (8-26) Creatinine 1.4 mg/dL (0.7-1.3) Estimated GFR (Cockcroft-Gault) 53.0 BUN/Creatinine Ratio 14 (6-20) Glucose Level 124 mg/dL (70-99) Calcium Level 8.4 mg/dL (8.5-10.1) Total Bilirubin 0.6 mg/dL (0.2-1.0) Aspartate Amino Transf (AST/SGOT) 14 U/L (15-37) Alanine Aminotransferase (ALT/SGPT) 28 U/L (16-63) Alkaline Phosphatase 60 U/L (46-116) Total Protein 7.4 g/dL (6.4-8.2) Albumin 2.7 g/dL (3.4-5.0) Albumin/Globulin Ratio 0.6 (1.0-1.7) Test 03/07/21 17:21 03/07/21 20:45 03/08/21 07:19 03/08/21 08:04 Glucose (Fingerstick) 201 mg/dL (70-99) 162 mg/dL (70-99) 99 mg/dL (70-99) White Blood Count 9.7 x10^3/uL (4.0-11.0) Red Blood Count 4.29 x10^6/uL (4.30-5.70) Hemoglobin 12.8 g/dL (13.0-17.5) Hematocrit 36.7 % (39.0-53.0) Mean Corpuscular Volume 86 fL (79-100) Mean Corpuscular Hemoglobin 30 pg (25-35) Mean Corpuscular Hemoglobin Concent 35 g/dL (31-37) Red Cell Distribution Width 13.3 % (11.5-14.5) Platelet Count 450 x10^3/uL (140-400) Neutrophils (%) (Auto) 74 % (31-73) Lymphocytes (%) (Auto) 16 % (24-48) Monocytes (%) (Auto) 10 % (0-9) Eosinophils (%) (Auto) 1 % (0-3) Basophils (%) (Auto) 0 % (0-3) Neutrophils # (Auto) 7.1 x10^3/uL (1.8-7.7) Lymphocytes # (Auto) 1.5 x10^3/uL (1.0-4.8) Monocytes # (Auto) 1.0 x10^3/uL (0.0-1.1) Eosinophils # (Auto) 0.1 x10^3/uL (0.0-0.7) Basophils # (Auto) 0.0 x10^3/uL (0.0-0.2) Sodium Level 137 mmol/L (136-145) Potassium Level 4.0 mmol/L (3.5-5.1) Chloride Level 102 mmol/L (98-107) Carbon Dioxide Level 27 mmol/L (21-32) Anion Gap 8 (6-14) Blood Urea Nitrogen 22 mg/dL (8-26) Creatinine 1.2 mg/dL (0.7-1.3) Estimated GFR (Cockcroft-Gault) 63.3 BUN/Creatinine Ratio 18 (6-20) Glucose Level 113 mg/dL (70-99) Calcium Level 8.3 mg/dL (8.5-10.1) Total Bilirubin 0.4 mg/dL (0.2-1.0) Aspartate Amino Transf (AST/SGOT) 23 U/L (15-37) Alanine Aminotransferase (ALT/SGPT) 33 U/L (16-63) Alkaline Phosphatase 57 U/L (46-116) Total Protein 7.2 g/dL (6.4-8.2) Albumin 2.5 g/dL (3.4-5.0) Albumin/Globulin Ratio 0.5 (1.0-1.7) Laboratory Tests Test 03/07/21 11:32 03/07/21 17:21 03/07/21 20:45 03/08/21 07:19 Glucose (Fingerstick) 168 mg/dL (70-99) 201 mg/dL (70-99) 162 mg/dL (70-99) White Blood Count 9.7 x10^3/uL (4.0-11.0) Red Blood Count 4.29 x10^6/uL (4.30-5.70) Hemoglobin 12.8 g/dL (13.0-17.5) Hematocrit 36.7 % (39.0-53.0) Mean Corpuscular Volume 86 fL (79-100) Mean Corpuscular Hemoglobin 30 pg (25-35) Mean Corpuscular Hemoglobin Concent 35 g/dL (31-37) Red Cell Distribution Width 13.3 % (11.5-14.5) Platelet Count 450 x10^3/uL (140-400) Neutrophils (%) (Auto) 74 % (31-73) Lymphocytes (%) (Auto) 16 % (24-48) Monocytes (%) (Auto) 10 % (0-9) Eosinophils (%) (Auto) 1 % (0-3) Basophils (%) (Auto) 0 % (0-3) Neutrophils # (Auto) 7.1 x10^3/uL (1.8-7.7) Lymphocytes # (Auto) 1.5 x10^3/uL (1.0-4.8) Monocytes # (Auto) 1.0 x10^3/uL (0.0-1.1) Eosinophils # (Auto) 0.1 x10^3/uL (0.0-0.7) Basophils # (Auto) 0.0 x10^3/uL (0.0-0.2) Sodium Level 137 mmol/L (136-145) Potassium Level 4.0 mmol/L (3.5-5.1) Chloride Level 102 mmol/L (98-107) Carbon Dioxide Level 27 mmol/L (21-32) Anion Gap 8 (6-14) Blood Urea Nitrogen 22 mg/dL (8-26) Creatinine 1.2 mg/dL (0.7-1.3) Estimated GFR (Cockcroft-Gault) 63.3 BUN/Creatinine Ratio 18 (6-20) Glucose Level 113 mg/dL (70-99) Calcium Level 8.3 mg/dL (8.5-10.1) Total Bilirubin 0.4 mg/dL (0.2-1.0) Aspartate Amino Transf (AST/SGOT) 23 U/L (15-37) Alanine Aminotransferase (ALT/SGPT) 33 U/L (16-63) Alkaline Phosphatase 57 U/L (46-116) Total Protein 7.2 g/dL (6.4-8.2) Albumin 2.5 g/dL (3.4-5.0) Albumin/Globulin Ratio 0.5 (1.0-1.7) Test 03/08/21 08:04 Glucose (Fingerstick) 99 mg/dL (70-99) Medications Current Medications Methylprednisolone Sodium Succinate (SOLU-Medrol 125MG VIAL) 125 mg 1X ONCE IV Last administered on 03/04/21at 07:17; Start 03/04/21 at 07:00; Stop 03/04/21 at 07:01; Status DC Ondansetron HCl (Zofran) 4 mg PRN Q8HRS PRN IVP NAUSEA/VOMITING; Start 03/04/21 at 08:00; Stop 03/04/21 at 08:03; Status DC Acetaminophen (Tylenol) 650 mg PRN Q4HRS PRN PO FEVER > 100.3'F; Start 03/04/21 at 08:00; Stop 03/04/21 at 08:04; Status DC Ondansetron HCl (Zofran) 4 mg PRN Q4HRS PRN IVP NAUSEA/VOMITING; Start 03/04/21 at 08:15 Acetaminophen (Tylenol) 650 mg PRN Q6HRS PRN PO FEVER > 100.3'F; Start 03/04/21 at 08:00 Heparin Sodium (Porcine) (Heparin Sodium) 5,000 unit Q8HRS SQ Last administered on 03/08/21at 06:02; Start 03/04/21 at 14:00 Guaifenesin (Robitussin Dm) 10 ml PRN Q6HRS PRN PO COUGH Last administered on 03/07/21at 21:17; Start 03/04/21 at 08:00 Tramadol HCl (Ultram) 50 mg PRN Q6HRS PRN PO PAIN; Start 03/04/21 at 08:00 Thiamine Mononitrate (Vitamin B-1) 100 mg DAILY PO Last administered on 03/08/21at 08:58; Start 03/04/21 at 09:00 Zinc Sulfate (Orazinc) 220 mg DAILY PO Last administered on 03/08/21at 08:58; Start 03/04/21 at 09:00 Insulin Glargine (Lantus Syringe) 12 unit QHS SQ Last administered on 03/07/21at 21:19; Start 03/04/21 at 21:00 Insulin Human Lispro (HumaLOG) 0-9 UNITS TIDWMEALS SQ Last administered on 03/07/21at 17:43; Start 03/04/21 at 08:00 Dextrose (Dextrose 50%-Water Syringe) 12.5 gm PRN Q15MIN PRN IV SEE COMMENTS; Start 03/04/21 at 08:00 Remdesivir 200 mg/ Sodium Chloride 210 ml @ 210 mls/hr 1X ONCE IV Last administered on 03/04/21at 12:21; Start 03/04/21 at 12:00; Stop 03/04/21 at 12:59; Status DC Remdesivir 100 mg/ Sodium Chloride 230 ml @ 460 mls/hr Q24H IV Last administered on 03/07/21at 11:34; Start 03/05/21 at 12:00; Stop 03/08/21 at 12:29 Hydralazine HCl (Apresoline Inj) 10 mg PRN Q4HRS PRN IVP ELEVATED BP, SEE COMMENTS Last administered on 03/08/21at 09:00; Start 03/04/21 at 11:45 Dexamethasone Sodium Phosphate (Decadron) 6 mg DAILY IVP Last administered on 03/08/21at 08:59; Start 03/05/21 at 09:00 Labetalol HCl (Normodyne Iv Push) 20 mg PRN Q4HRS PRN IVP HYPERTENSION Last administered on 03/05/21at 20:22; Start 03/04/21 at 15:45 Sodium Chloride 1,000 ml @ 75 mls/hr 1X ONCE IV Last administered on 03/04/21at 15:42; Start 03/04/21 at 15:45; Stop 03/05/21 at 05:04; Status DC Amlodipine Besylate (Norvasc) 10 mg 1X ONCE PO Last administered on 03/04/21at 18:06; Start 03/04/21 at 17:45; Stop 03/04/21 at 17:46; Status DC Amlodipine Besylate (Norvasc) 10 mg DAILY PO Last administered on 03/08/21at 08:59; Start 03/05/21 at 09:00 Zolpidem Tartrate (Ambien) 5 mg PRN QHS PRN PO INSOMNIA Last administered on 03/07/21at 22:11; Start 03/04/21 at 22:30 Hydralazine HCl (Apresoline Inj) 10 mg PRN Q4HRS PRN IVP ELEVATED BP, SEE COMMENTS; Start 03/07/21 at 10:45; Stop 03/07/21 at 12:04; Status DC Active Scripts Active Reported Lisinopril 20 Mg Tablet 20 Mg PO DAILY Vitals/I & O Vital Sign - Last 24 Hours 03/07/21 03/07/21 03/07/21 03/07/21 11:00 15:00 19:00 20:00 Temp 97.8 98.1 98.0 97.8 98.1 98.0 Pulse 87 79 75 Resp 18 18 20 B/P (MAP) 213/98 (136) 182/99 (126) 179/104 (129) Pulse Ox 91 94 94 O2 Delivery Nasal Cannula Nasal Cannula Nasal Cannula Nasal Cannula O2 Flow Rate 5.0 5.0 4.0 03/07/21 03/07/21 03/08/21 03/08/21 21:20 23:02 04:23 07:00 Temp 98.4 97.6 97.9 98.4 97.6 97.9 Pulse 75 93 88 83 Resp 20 20 20 B/P (MAP) 179/104 174/96 (122) 173/99 (123) 200/115 (143) Pulse Ox 91 99 93 O2 Delivery Nasal Cannula Nasal Cannula Nasal Cannula 03/08/21 03/08/21 08:59 09:00 Pulse 83 83 B/P (MAP) 200/115 200/115 Intake and Output 03/07/21 03/07/21 03/08/21 15:00 23:00 07:00 Intake Total 500 ml 0 ml Output Total 900 ml 900 ml Balance 500 ml -900 ml -900 ml Justicifation of Admission Dx: Justifications for Admission: Justification of Admission Dx: N/A CHIKIS MANLEY MD Mar 08, 2021 10:57
[2021-03-08 11:00] VITALS: BP 174/97
[2021-03-08] MEDS: METOPROLOL SUCC 24HR ER 25 MG TAB.ER.24H. PO SCH (12:18)
[2021-03-08] MEDS: REMDESIVIR 100mg in NORMAL SALINE 250ML X 4 DAYS IV SCH (12:18)
[2021-03-08 15:00] VITALS: BP 182/109
[2021-03-08 19:00] VITALS: BP 160/97
[2021-03-08] MEDS: INSULIN GLARGINE SYRINGE. SQ SCH (21:21)
[2021-03-08] MEDS: guaiFENesin DM 200MG/20MG 10 ML SYRUP PO PRN (21:22)
[2021-03-08 23:00] VITALS: BP 179/103
[2021-03-08] MEDS: ZOLPIDEM 5 MG TABLET. PO PRN (23:39)
[2021-03-09 04:13] VITALS: BP 171/106
[2021-03-09] MEDS: LABETALOL 20 MG/4 ML DISP.SYRIN. IVP PRN ×2 (04:18→18:37)
[2021-03-09] MEDS: HEPARIN for SUB-Q USE 5,000 UNIT/ML VIAL. SQ SCH ×3 (05:55→20:42)
[2021-03-09 07:00] VITALS: BP 172/94
[2021-03-09] MEDS: INSULIN LISPRO 300 UNITS/3 ML VIAL. SQ SCH ×3 (08:00→17:00)
[2021-03-09 09:00] LABS: BASO % 0 % (0-3); EOS # 0.1 x10^3/uL (0.0-0.7); EOS % 1 % (0-3); HEMATOCRIT 34.5 % (39.0-53.0); LYMPH # 1.8 x10^3/uL (1.0-4.8); LYMPH % 16 % (24-48); MEAN CORPUSCULAR HEMOGLOBIN 30 pg (25-35); MEAN CORPUSCULAR HGB CONC 35 g/dL (31-37); MEAN CORPUSCULAR VOLUME 86 fL (79-100); MONO # 1.1 x10^3/uL (0.0-1.1); MONO % 10 % (0-9); NEUT # 7.8 x10^3/uL (1.8-7.7); NEUT % 72 % (31-73); PLATELET COUNT 450 x10^3/uL (140-400); RED BLOOD COUNT 4.01 x10^6/uL (4.30-5.70); RED CELL DISTRIBUTION WIDTH 13.4 % (11.5-14.5); WHITE BLOOD COUNT 10.8 x10^3/uL (4.0-11.0)
[2021-03-09 09:30] LABS: ALBUMIN 2.5 g/dL (3.4-5.0); ALBUMIN/GLOBULIN RATIO 0.5 (1.0-1.7); CALCIUM 8.5 mg/dL (8.5-10.1); CREATININE 1.4 mg/dL (0.7-1.3); POTASSIUM 4.2 mmol/L (3.5-5.1); TOTAL BILIRUBIN 0.4 mg/dL (0.2-1.0); TOTAL PROTEIN 7.1 g/dL (6.4-8.2)
[2021-03-09] MEDS: DEXAMETHASONE SOD PHOS 4 MG/ML VIAL IVP SCH (09:37)
[2021-03-09] MEDS: METOPROLOL SUCC 24HR ER 25 MG TAB.ER.24H. PO SCH ×2 (09:38→14:22)
[2021-03-09] MEDS: ZINC SULFATE 220 MG CAPSULE. PO SCH (09:38)
[2021-03-09] MEDS: THIAMINE 100 MG TABLET. PO SCH (09:38)
--- NOTE | 2021-03-09 10:51 | PDOC ---
PROGRESS NOTES Date of Service: DATE: 03/09/21 TIME: 10:51 Chief Complaint Chief Complaint Images Images Chest radiograph: The heart is at the upper limit of normal in size. Lungs are mildly hypoexpanded. There are patchy bilateral opacities. No pleural effusion or pneumothorax. No acute osseous abnormality. IMPRESSION: Upper limit of normal heart size with patchy bilateral opacities, which could be due to pneumonia or pulmonary edema. VTE Prophylaxis Ordered VTE Prophylaxis Devices: No VTE Pharmacological Prophylaxi: Yes Assessment/Plan Assessment/Plan A/P: Acute respiratory failure with hypoxia -due to COVID-19 with COVID-19 related pneumonia. Will get standard care treatment with steroids and remdesivir wean O2. COVID-19 -empiric steroids and remdesivir. Supportive care and wean O2 as tolerated. PANDA -likely vasomotor nephropathy. Will monitor renal function hydrate. Hyponatremia -likely nutritional. Well monitor p.o. intake will give supplement al nutrition if necessary. Prediabetes - with hyperglycemia - likely has DM2, will place on basal bolus plus insulin while inpatient HTN - hold home lisinopril for PANDA, can resume if renal function improves, will give prn hydralazine and labetalol FEN - ADA PPX - heparin FULL CODE Dispo - inpatient Justifications for Admission Justifications for Admission Other Justification HYPOXIA 03/05 History of Present Illness History of Present Illness Identification/Chief Complaint Chief Complaint Shortness of breath Source Source: Patient History of Present Illness History of Present Illness Mr Nguyen is a 55-year-old male w/ PMHx prediabetes, HTN who arrives ambulatory to the emergency department complaining of continued shortness of breath. Patient was diagnosed with coronavirus 02/26/2021 and has continued to be short of breath. The patient believes he should have had some improvement in his symptoms however he is continue to be short of air at rest. Patient also states he has had diarrhea during this time as well and actually has had several "accidents". Had myalgias as well as chills as well as loss of appetite. In ED had oxygen saturations in the mid 80s, improved with 4L NCO2. 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 He did have his first dose of the Pfizer vaccine on 02/10/2021 and was scheduled for his second dose prior to his symptoms beginning. EKG appears normal sinus rhythm with a ventricular rate of 84 bpm. There is no acute ST/T wave changes to denote ischemia. This is an otherwise normal- appearing EKG. Chest radiograph concerning for bilateral interstitial changes Labs WBC 7, Hb 12.8, platelets 260, NA 131, K4.1, BUN 11, CR 1.5, glucose 222, calcium 8.3, albumin 2.8, troponin 0, CRP 128.3, LFTs within normal laboratory limits. Admitted for further care. Past Medical History Cardiovascular: HTN Past Surgical History Past Surgical History: Hernia Repair Family History Family History: Diabetes, High Cholestrol, Hypertension Social History Smoke: No ALCOHOL: none Drugs: None Current Medications Current Medications Current Medications Methylprednisolone Sodium Succinate (SOLU-Medrol 125MG VIAL) 125 mg 1X ONCE IV Last administered on 03/04/21at 07:17; Start 03/04/21 at 07:00; Stop 03/04/21 at 07:01; Status DC Ondansetron HCl (Zofran) 4 mg PRN Q8HRS PRN IVP NAUSEA/VOMITING; Start 03/04/21 at 08:00; Stop 03/05/21 at 07:59 Acetaminophen (Tylenol) 650 mg PRN Q4HRS PRN PO FEVER > 100.3'F; Start 03/04/21 at 08:00; Stop 03/05/21 at 07:59 Active Scripts Active Howe 5-325 Tablet (Acetaminophen/Hydrocodone Bitart) 1 Each Tablet 1 Tab PO PRN Q6HRS PRN Metformin Hcl 500 Mg Tablet 500 Mg PO BIDWMEALS 90 Days Increase to 2 tablets in the morning and 1 tablet in the evening after 1 week and then increase to 2 tablets in the morning and 2 tablets at night after 2 full weeks of therapy. Reported Lisinopril-Hctz 20-25 Mg Tab (Lisinopril/Hydrochlorothiazide) 1 Each Tablet 1 Each PO DAILY Allergies Allergies: Coded Allergies: No Known Drug Allergies (Unverified , 11/18/13) ROS General: YES: Fatigue, Malaise, Appetite; No: Chills, Night Sweats, Other PSYCHOLOGICAL ROS: No: Anxiety, Behavioral Disorder, Concentration difficultie, Decreased libido, Depression, Disorientation, Hallucinations, Hostility, Irritablity, Memory difficulties, Mood Swings, Obsessive thoughts, Physical abuse, Sexual abuse, Sleep disturbances, Suicidal ideation, Other Eyes: No Blurry vision, No Decreased vision, No Double vision, No Dry eyes, No Excessive tearing, No Eye Pain, No Itchy Eyes, No Loss of vision, No Photophobia, No Scotomata, No Uses contacts, No Uses glasses, No Other HEENT: No: Heacaches, Visual Changes, Hearing change, Nasal congestion, Nasal discharge, Oral lesions, Sinus pain, Sore Throat, Epistaxis, Sneezing, Snoring, Tinnitus, Vertigo, Vocal changes, Other ALLERGY AND IMMUNOLOGY: No: Hives, Insect Bite Sensitivity, Itchy/Watery Eyes, Nasal Congestion, Post Nasal Drip, Seasonal Allergies, Other Hematological and Lymphatic: No: Bleeding Problems, Blood Clots, Blood Transfusions, Brusing, Night Sweats, Pallor, Swollen Lymph Nodes, Other ENDOCRINE: No: Breast Changes, Galactorrhea, Hair Pattern Changes, Hot Flashes, Malaise/lethargy, Mood Swings, Palpitations, Polydipsia/polyuria, Skin Changes, Temperature Intolerance, Unexpected Weight Changes, Other Breast: No New/Changing Breast Lumps, No Nipple changes, No Nipple discharge, No Other Respiratory: YES: Cough, Shortness of breath, SOB with excertion, Tachypnea; No: Hemoptysis, Orthopnea, Pleuritic Pain, Sputum Changes, Stridor, Wheezing, Other Cardiovascular: No Chest Pain, No Palpitations, No Orthopnea, No Paroxysmal Noc. Dyspnea, No Edema, No Lt Headedness, No Other Gastrointestinal: Yes Nausea, Yes Diarrhea; No Vomiting, No Abdominal Pain, No Constipation, No Melena, No Hematochezia, No Other Genitourinary: No Dysuria, No Frequency, No Incontinence, No Hematuria, No Retention, No Discharge, No Urgency, No Pain, No Flank Pain, No Other, No , No , No , No , No , No , No Musculoskeletal: No Gait Disturbance, No Joint Pain, No Joint Stiffness, No Joint Swelling, No Muscle Pain, No Muscular Weakness, No Pain In:, No Swelling In:, No Other Neurological: No Behavorial Changes, No Bowel/Bladder ControlChng, No Confusion, No Dizziness, No Gait Disturbance, No Headaches, No Impaired Coord/balance, No Memory Loss, No Numbness/Tingling, No Seizures, No Speech Problems, No Tremors, No Visual Changes, No Weakness, No Other Skin: No Dry Skin, No Eczema, No Hair Changes, No Lumps, No Mole Changes, No Mottling, No Nail Changes, No Pruritus, No Rash, No Skin Lesion Changes, No Other, No Acne 03-05 patchy bilateral opacities. No pleural effusion or pneumothorax. No acute osseous abnormality. 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 Will get standard care treatment with steroids and remdesivir wean O2. COVID-19 -empiric steroids and remdesivir. Supportive care and wean O2 as tolerated. PANDA -likely vasomotor nephropathy. Will monitor renal function hydrate. Hyponatremia -likely nutritional.monitor p.o. intake will give supplemental nut rition if necessary. Prediabetes - with hyperglycemia - likely has DM2, basal bolus plus insulin while inpatient HTN - hold home lisinopril for PANDA, can resume if renal function improves, will give prn hydralazine and labetalol FEN - ADA PPX - heparin FULL CODE Dispo - inpatient 03-06 patchy bilateral opacities. No pleural effusion or pneumothorax. No acute osseous abnormality. 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 Will get standard care treatment with steroids and remdesivir wean O2. COVID-19 -empiric steroids and remdesivir. Supportive care and wean O2 as tolerated. PANDA -likely vasomotor nephropathy. Will monitor renal function hydrate. Hyponatremia -likely nutritional.monitor p.o. intake will give supplemental nutrition if necessary. Prediabetes - with hyperglycemia - likely has DM2, basal bolus plus insulin while inpatient HTN - hold home lisinopril for PANDA, can resume if renal function improves, will give prn hydralazine and labetalol FEN - ADA PPX - heparin FULL CODE Dispo - inpatient 03-07 BP LABILE IV HYDRALAZINE ADDED PRN 10 MG Q 4 HRS patchy bilateral opacities. No pleural effusion or pneumothorax. 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 Will get standard care treatment with steroids and remdesivir wean O2. COVID-19 -empiric steroids and remdesivir. Supportive care and wean O2 as tolerated. PANDA -likely vasomotor nephropathy. Will monitor renal function hydrate. Hyponatremia -likely nutritional.monitor p.o. intake will give supplemental nutrition if necessary. Prediabetes - with hyperglycemia - likely has DM2, basal bolus plus insulin while inpatient HTN - hold home lisinopril for PANDA, can resume if renal function improves, will give prn hydralazine and labetalol FEN - ADA d/w rn PPX - heparin FULL CODE Dispo - inpatient 03-08 BP LABILE IV HYDRALAZINE ADDED PRN 10 MG Q 4 HRS and topral xl 25 mg po daily patchy bilateral opacities. No pleural effusion or pneumothorax. 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 Will get standard care treatment with steroids and remdesivir wean O2. COVID-19 -empiric steroids and remdesivir. Supportive care and wean O2 as tolerated. PANDA -likely vasomotor nephropathy. Will monitor renal function hydrate. Hyponatremia -likely nutritional.monitor p.o. intake will give supplemental nutrition if necessary. Prediabetes - with hyperglycemia - likely has DM2, basal bolus plus insulin while inpatient HTN - hold home lisinopril for PANDA, can resume if renal function improves, will give prn hydralazine and labetalol FEN - ADA d/w rn PPX - heparin FULL CODE Dispo - inpatient 03-09 ON 4 LITERS NC BP LABILE IV HYDRALAZINE ADDED PRN 10 MG Q 4 HRS and toprol xl 37.5 mg po daily hopefully home 03-10 patchy bilateral opacities. No pleural effusion or pneumothorax. 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 Will get standard care treatment with steroids and remdesivir wean O2. COVID-19 -empiric steroids and remdesivir. Supportive care and wean O2 as tolerated. PANDA -likely vasomotor nephropathy. Will monitor renal function hydrate. Hyponatremia -likely nutritional.monitor p.o. intake will give supplemental nutrition if necessary. Prediabetes - with hyperglycemia - likely has DM2, basal bolus plus insulin while inpatient HTN - hold home lisinopril for PANDA, can resume if renal function improves, will give prn hydralazine and labetalol FEN - ADA d/w rn PPX - heparin FULL CODE Dispo - inpatient Vitals Vitals Vital Signs Date Time Temp Pulse Resp B/P (MAP) Pulse Ox O2 Delivery O2 Flow Rate FiO2 03/09/21 09:38 74 172/94 03/09/21 07:00 98.0 18 91 Nasal Cannula 98.0 03/08/21 20:21 4.0 Physical Exam General: Alert, Oriented X3, Cooperative, No acute distress Heart: Regular rate, Normal S1, Normal S2 Lungs: Crackles Abdomen: Normal bowel sounds, Soft, No tenderness, No hepatosplenomegaly, No masses Extremities: No clubbing, No cyanosis, No edema, Normal pulses, No tenderness/swelling Skin: No rashes, No breakdown, No significant lesion Labs LABS Laboratory Tests Test 03/08/21 11:45 03/08/21 16:53 03/08/21 20:46 03/09/21 07:40 Glucose (Fingerstick) 198 mg/dL (70-99) 215 mg/dL (70-99) 181 mg/dL (70-99) White Blood Count 10.8 x10^3/uL (4.0-11.0) Red Blood Count 4.01 x10^6/uL (4.30-5.70) Hemoglobin 12.0 g/dL (13.0-17.5) Hematocrit 34.5 % (39.0-53.0) Mean Corpuscular Volume 86 fL (79-100) Mean Corpuscular Hemoglobin 30 pg (25-35) Mean Corpuscular Hemoglobin Concent 35 g/dL (31-37) Red Cell Distribution Width 13.4 % (11.5-14.5) Platelet Count 450 x10^3/uL (140-400) Neutrophils (%) (Auto) 72 % (31-73) Lymphocytes (%) (Auto) 16 % (24-48) Monocytes (%) (Auto) 10 % (0-9) Eosinophils (%) (Auto) 1 % (0-3) Basophils (%) (Auto) 0 % (0-3) Neutrophils # (Auto) 7.8 x10^3/uL (1.8-7.7) Lymphocytes # (Auto) 1.8 x10^3/uL (1.0-4.8) Monocytes # (Auto) 1.1 x10^3/uL (0.0-1.1) Eosinophils # (Auto) 0.1 x10^3/uL (0.0-0.7) Basophils # (Auto) 0.0 x10^3/uL (0.0-0.2) Sodium Level 138 mmol/L (136-145) Potassium Level 4.2 mmol/L (3.5-5.1) Chloride Level 103 mmol/L (98-107) Carbon Dioxide Level 28 mmol/L (21-32) Anion Gap 7 (6-14) Blood Urea Nitrogen 25 mg/dL (8-26) Creatinine 1.4 mg/dL (0.7-1.3) Estimated GFR (Cockcroft-Gault) 53.0 BUN/Creatinine Ratio 18 (6-20) Glucose Level 95 mg/dL (70-99) Calcium Level 8.5 mg/dL (8.5-10.1) Total Bilirubin 0.4 mg/dL (0.2-1.0) Aspartate Amino Transf (AST/SGOT) 22 U/L (15-37) Alanine Aminotransferase (ALT/SGPT) 33 U/L (16-63) Alkaline Phosphatase 53 U/L (46-116) Total Protein 7.1 g/dL (6.4-8.2) Albumin 2.5 g/dL (3.4-5.0) Albumin/Globulin Ratio 0.5 (1.0-1.7) Assessment and Plan Assessmemt and Plan Problems Medical Problems: (1) COVID-19 Status: Acute (2) Hyperglycemia Status: Acute (3) Poorly-controlled hypertension Status: Acute (4) Renal insufficiency Status: Acute (5) Respiratory failure Status: Acute Comment Review of Relevant I have reviewed the following items tom (where applicable) has been applied. Labs Laboratory Tests Test 03/07/21 11:32 03/07/21 17:21 03/07/21 20:45 03/08/21 07:19 Glucose (Fingerstick) 168 mg/dL (70-99) 201 mg/dL (70-99) 162 mg/dL (70-99) White Blood Count 9.7 x10^3/uL (4.0-11.0) Red Blood Count 4.29 x10^6/uL (4.30-5.70) Hemoglobin 12.8 g/dL (13.0-17.5) Hematocrit 36.7 % (39.0-53.0) Mean Corpuscular Volume 86 fL (79-100) Mean Corpuscular Hemoglobin 30 pg (25-35) Mean Corpuscular Hemoglobin Concent 35 g/dL (31-37) Red Cell Distribution Width 13.3 % (11.5-14.5) Platelet Count 450 x10^3/uL (140-400) Neutrophils (%) (Auto) 74 % (31-73) Lymphocytes (%) (Auto) 16 % (24-48) Monocytes (%) (Auto) 10 % (0-9) Eosinophils (%) (Auto) 1 % (0-3) Basophils (%) (Auto) 0 % (0-3) Neutrophils # (Auto) 7.1 x10^3/uL (1.8-7.7) Lymphocytes # (Auto) 1.5 x10^3/uL (1.0-4.8) Monocytes # (Auto) 1.0 x10^3/uL (0.0-1.1) Eosinophils # (Auto) 0.1 x10^3/uL (0.0-0.7) Basophils # (Auto) 0.0 x10^3/uL (0.0-0.2) Sodium Level 137 mmol/L (136-145) Potassium Level 4.0 mmol/L (3.5-5.1) Chloride Level 102 mmol/L (98-107) Carbon Dioxide Level 27 mmol/L (21-32) Anion Gap 8 (6-14) Blood Urea Nitrogen 22 mg/dL (8-26) Creatinine 1.2 mg/dL (0.7-1.3) Estimated GFR (Cockcroft-Gault) 63.3 BUN/Creatinine Ratio 18 (6-20) Glucose Level 113 mg/dL (70-99) Calcium Level 8.3 mg/dL (8.5-10.1) Ferritin 666 ng/mL (26-388) Total Bilirubin 0.4 mg/dL (0.2-1.0) Aspartate Amino Transf (AST/SGOT) 23 U/L (15-37) Alanine Aminotransferase (ALT/SGPT) 33 U/L (16-63) Alkaline Phosphatase 57 U/L (46-116) C-Reactive Protein, Quantitative 51.2 mg/L (0-3.3) Total Protein 7.2 g/dL (6.4-8.2) Albumin 2.5 g/dL (3.4-5.0) Albumin/Globulin Ratio 0.5 (1.0-1.7) Test 03/08/21 08:04 03/08/21 11:45 03/08/21 16:53 03/08/21 20:46 Glucose (Fingerstick) 99 mg/dL (70-99) 198 mg/dL (70-99) 215 mg/dL (70-99) 181 mg/dL (70-99) Test 03/09/21 07:40 White Blood Count 10.8 x10^3/uL (4.0-11.0) Red Blood Count 4.01 x10^6/uL (4.30-5.70) Hemoglobin 12.0 g/dL (13.0-17.5) Hematocrit 34.5 % (39.0-53.0) Mean Corpuscular Volume 86 fL (79-100) Mean Corpuscular Hemoglobin 30 pg (25-35) Mean Corpuscular Hemoglobin Concent 35 g/dL (31-37) Red Cell Distribution Width 13.4 % (11.5-14.5) Platelet Count 450 x10^3/uL (140-400) Neutrophils (%) (Auto) 72 % (31-73) Lymphocytes (%) (Auto) 16 % (24-48) Monocytes (%) (Auto) 10 % (0-9) Eosinophils (%) (Auto) 1 % (0-3) Basophils (%) (Auto) 0 % (0-3) Neutrophils # (Auto) 7.8 x10^3/uL (1.8-7.7) Lymphocytes # (Auto) 1.8 x10^3/uL (1.0-4.8) Monocytes # (Auto) 1.1 x10^3/uL (0.0-1.1) Eosinophils # (Auto) 0.1 x10^3/uL (0.0-0.7) Basophils # (Auto) 0.0 x10^3/uL (0.0-0.2) Sodium Level 138 mmol/L (136-145) Potassium Level 4.2 mmol/L (3.5-5.1) Chloride Level 103 mmol/L (98-107) Carbon Dioxide Level 28 mmol/L (21-32) Anion Gap 7 (6-14) Blood Urea Nitrogen 25 mg/dL (8-26) Creatinine 1.4 mg/dL (0.7-1.3) Estimated GFR (Cockcroft-Gault) 53.0 BUN/Creatinine Ratio 18 (6-20) Glucose Level 95 mg/dL (70-99) Calcium Level 8.5 mg/dL (8.5-10.1) Total Bilirubin 0.4 mg/dL (0.2-1.0) Aspartate Amino Transf (AST/SGOT) 22 U/L (15-37) Alanine Aminotransferase (ALT/SGPT) 33 U/L (16-63) Alkaline Phosphatase 53 U/L (46-116) Total Protein 7.1 g/dL (6.4-8.2) Albumin 2.5 g/dL (3.4-5.0) Albumin/Globulin Ratio 0.5 (1.0-1.7) Laboratory Tests Test 03/08/21 11:45 03/08/21 16:53 03/08/21 20:46 03/09/21 07:40 Glucose (Fingerstick) 198 mg/dL (70-99) 215 mg/dL (70-99) 181 mg/dL (70-99) White Blood Count 10.8 x10^3/uL (4.0-11.0) Red Blood Count 4.01 x10^6/uL (4.30-5.70) Hemoglobin 12.0 g/dL (13.0-17.5) Hematocrit 34.5 % (39.0-53.0) Mean Corpuscular Volume 86 fL (79-100) Mean Corpuscular Hemoglobin 30 pg (25-35) Mean Corpuscular Hemoglobin Concent 35 g/dL (31-37) Red Cell Distribution Width 13.4 % (11.5-14.5) Platelet Count 450 x10^3/uL (140-400) Neutrophils (%) (Auto) 72 % (31-73) Lymphocytes (%) (Auto) 16 % (24-48) Monocytes (%) (Auto) 10 % (0-9) Eosinophils (%) (Auto) 1 % (0-3) Basophils (%) (Auto) 0 % (0-3) Neutrophils # (Auto) 7.8 x10^3/uL (1.8-7.7) Lymphocytes # (Auto) 1.8 x10^3/uL (1.0-4.8) Monocytes # (Auto) 1.1 x10^3/uL (0.0-1.1) Eosinophils # (Auto) 0.1 x10^3/uL (0.0-0.7) Basophils # (Auto) 0.0 x10^3/uL (0.0-0.2) Sodium Level 138 mmol/L (136-145) Potassium Level 4.2 mmol/L (3.5-5.1) Chloride Level 103 mmol/L (98-107) Carbon Dioxide Level 28 mmol/L (21-32) Anion Gap 7 (6-14) Blood Urea Nitrogen 25 mg/dL (8-26) Creatinine 1.4 mg/dL (0.7-1.3) Estimated GFR (Cockcroft-Gault) 53.0 BUN/Creatinine Ratio 18 (6-20) Glucose Level 95 mg/dL (70-99) Calcium Level 8.5 mg/dL (8.5-10.1) Total Bilirubin 0.4 mg/dL (0.2-1.0) Aspartate Amino Transf (AST/SGOT) 22 U/L (15-37) Alanine Aminotransferase (ALT/SGPT) 33 U/L (16-63) Alkaline Phosphatase 53 U/L (46-116) Total Protein 7.1 g/dL (6.4-8.2) Albumin 2.5 g/dL (3.4-5.0) Albumin/Globulin Ratio 0.5 (1.0-1.7) Medications Current Medications Methylprednisolone Sodium Succinate (SOLU-Medrol 125MG VIAL) 125 mg 1X ONCE IV Last administered on 03/04/21at 07:17; Start 03/04/21 at 07:00; Stop 03/04/21 at 07:01; Status DC Ondansetron HCl (Zofran) 4 mg PRN Q8HRS PRN IVP NAUSEA/VOMITING; Start 03/04/21 at 08:00; Stop 03/04/21 at 08:03; Status DC Acetaminophen (Tylenol) 650 mg PRN Q4HRS PRN PO FEVER > 100.3'F; Start 03/04/21 at 08:00; Stop 03/04/21 at 08:04; Status DC Ondansetron HCl (Zofran) 4 mg PRN Q4HRS PRN IVP NAUSEA/VOMITING; Start 03/04/21 at 08:15 Acetaminophen (Tylenol) 650 mg PRN Q6HRS PRN PO FEVER > 100.3'F; Start 03/04/21 at 08:00 Heparin Sodium (Porcine) (Heparin Sodium) 5,000 unit Q8HRS SQ Last administered on 03/09/21at 05:55; Start 03/04/21 at 14:00 Guaifenesin (Robitussin Dm) 10 ml PRN Q6HRS PRN PO COUGH Last administered on 03/08/21at 21:22; Start 03/04/21 at 08:00 Tramadol HCl (Ultram) 50 mg PRN Q6HRS PRN PO PAIN; Start 03/04/21 at 08:00 Thiamine Mononitrate (Vitamin B-1) 100 mg DAILY PO Last administered on 03/09/21at 09:38; Start 03/04/21 at 09:00 Zinc Sulfate (Orazinc) 220 mg DAILY PO Last administered on 03/09/21at 09:38; Start 03/04/21 at 09:00 Insulin Glargine (Lantus Syringe) 12 unit QHS SQ Last administered on 03/08/21at 21:21; Start 03/04/21 at 21:00 Insulin Human Lispro (HumaLOG) 0-9 UNITS TIDWMEALS SQ Last administered on 03/08/21at 18:12; Start 03/04/21 at 08:00 Dextrose (Dextrose 50%-Water Syringe) 12.5 gm PRN Q15MIN PRN IV SEE COMMENTS; Start 03/04/21 at 08:00 Remdesivir 200 mg/ Sodium Chloride 210 ml @ 210 mls/hr 1X ONCE IV Last administered on 03/04/21at 12:21; Start 03/04/21 at 12:00; Stop 03/04/21 at 12:59; Status DC Remdesivir 100 mg/ Sodium Chloride 230 ml @ 460 mls/hr Q24H IV Last administered on 03/08/21at 12:18; Start 03/05/21 at 12:00; Stop 03/08/21 at 12:29; Status DC Hydralazine HCl (Apresoline Inj) 10 mg PRN Q4HRS PRN IVP ELEVATED BP, SEE COMMENTS Last administered on 03/08/21at 09:00; Start 03/04/21 at 11:45 Dexamethasone Sodium Phosphate (Decadron) 6 mg DAILY IVP Last administered on 03/09/21at 09:37; Start 03/05/21 at 09:00 Labetalol HCl (Normodyne Iv Push) 20 mg PRN Q4HRS PRN IVP HYPERTENSION Last administered on 03/09/21at 04:18; Start 03/04/21 at 15:45 Sodium Chloride 1,000 ml @ 75 mls/hr 1X ONCE IV Last administered on 03/04/21at 15:42; Start 03/04/21 at 15:45; Stop 03/05/21 at 05:04; Status DC Amlodipine Besylate (Norvasc) 10 mg 1X ONCE PO Last administered on 03/04/21at 18:06; Start 03/04/21 at 17:45; Stop 03/04/21 at 17:46; Status DC Amlodipine Besylate (Norvasc) 10 mg DAILY PO Last administered on 03/09/21at 09:37; Start 03/05/21 at 09:00 Zolpidem Tartrate (Ambien) 5 mg PRN QHS PRN PO INSOMNIA Last administered on 03/08/21at 23:39; Start 03/04/21 at 22:30 Hydralazine HCl (Apresoline Inj) 10 mg PRN Q4HRS PRN IVP ELEVATED BP, SEE COMMENTS; Start 03/07/21 at 10:45; Stop 03/07/21 at 12:04; Status DC Metoprolol Succinate (Toprol Xl) 25 mg DAILY PO Last administered on 03/09/21at 09:38; Start 03/08/21 at 11:00 Active Scripts Active Reported Lisinopril 20 Mg Tablet 20 Mg PO DAILY Vitals/I & O Vital Sign - Last 24 Hours 03/08/21 03/08/21 03/08/21 03/08/21 11:00 12:18 15:00 19:00 Temp 97.9 97.9 97.9 97.9 97.9 97.9 Pulse 87 87 90 80 Resp 20 20 20 B/P (MAP) 174/97 (122) 174/97 182/109 (133) 160/97 (118) Pulse Ox 93 95 95 O2 Delivery Nasal Cannula Nasal Cannula Room Air 03/08/21 03/08/21 03/09/21 03/09/21 20:21 23:00 04:13 04:18 Temp 98.1 97.6 98.1 97.6 Pulse 76 80 80 Resp 18 18 B/P (MAP) 179/103 (128) 171/106 (127) 171/106 Pulse Ox 93 98 O2 Delivery Nasal Cannula Nasal Cannula Nasal Cannula O2 Flow Rate 4.0 03/09/21 03/09/21 03/09/21 07:00 09:37 09:38 Temp 98.0 98.0 Pulse 74 74 74 Resp 18 B/P (MAP) 172/94 (120) 172/94 172/94 Pulse Ox 91 O2 Delivery Nasal Cannula Intake and Output 03/08/21 03/08/21 03/09/21 15:00 23:00 07:00 Intake Total 600 ml 300 ml Output Total 600 ml Balance 600 ml 300 ml -600 ml Justicifation of Admission Dx: Justifications for Admission: Justification of Admission Dx: N/A CHIKIS MANLEY MD Mar 09, 2021 10:51
[2021-03-09 11:00] VITALS: BP 184/91
--- NOTE | 2021-03-09 14:23 | NUR ---
dose adjustment on metoprolol per Dr. Heredia. only give 12.5mg because pt received 25mg dose this morning .
[2021-03-09 15:00] VITALS: BP 191/87
[2021-03-09] MEDS ORDERED: INSULIN LISPRO 300 UNITS/3 ML VIAL. SQ ONE (18:00)
--- NOTE | 2021-03-09 18:28 | EKG ---
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
[2021-03-09 19:00] VITALS: BP 147/88
[2021-03-09] MEDS: guaiFENesin DM 200MG/20MG 10 ML SYRUP PO PRN (20:40)
[2021-03-09] MEDS: INSULIN GLARGINE SYRINGE. SQ SCH (20:41)
[2021-03-09] MEDS: ZOLPIDEM 5 MG TABLET. PO PRN (22:17)
[2021-03-09 23:00] VITALS: BP 193/103
[2021-03-10 04:08] VITALS: BP 157/98
[2021-03-10] MEDS: HEPARIN for SUB-Q USE 5,000 UNIT/ML VIAL. SQ SCH ×2 (06:02→14:12)
[2021-03-10 07:00] VITALS: BP 174/100
[2021-03-10] MEDS: INSULIN LISPRO 300 UNITS/3 ML VIAL. SQ SCH ×2 (08:00→12:25)
[2021-03-10] MEDS: THIAMINE 100 MG TABLET. PO SCH (09:19)
[2021-03-10] MEDS: DEXAMETHASONE SOD PHOS 4 MG/ML VIAL IVP SCH (09:19)
[2021-03-10] MEDS: METOPROLOL SUCC 24HR ER 25 MG TAB.ER.24H. PO SCH (09:20)
[2021-03-10] MEDS: ZINC SULFATE 220 MG CAPSULE. PO SCH (09:20)
[2021-03-10 11:00] VITALS: BP 156/95
[2021-03-10] MEDS ORDERED: AMLO-187 PO (14:26)
[2021-03-10] MEDS ORDERED: METO-239 PO (14:26)
--- NOTE | 2021-03-10 14:30 | PDOC3 ---
Discharge Summary Visit Information Date of Admission: Mar 04, 2021 Date of Discharge: Mar 10, 2021 Final Diagnosis Problems Medical Problems: (1) COVID-19 Status: Acute (2) Hyperglycemia Status: Acute (3) Poorly-controlled hypertension Status: Acute (4) Renal insufficiency Status: Acute (5) Respiratory failure Status: Acute Brief Hospital Course Allergies Allergies Coded Allergies Type Severity Reaction Last Updated Verified No Known Drug Allergies 11/18/13 No Vital Signs Vital Signs Date Time Temp Pulse Resp B/P (MAP) Pulse Ox O2 Delivery O2 Flow Rate FiO2 03/10/21 11:00 79 19 156/95 (115) 90 Room Air 4.0 03/10/21 07:00 97.8 97.8 Lab Results Laboratory Tests Test 03/08/21 16:53 03/08/21 20:46 03/09/21 07:40 03/09/21 11:41 Glucose (Fingerstick) 215 mg/dL (70-99) 181 mg/dL (70-99) 154 mg/dL (70-99) White Blood Count 10.8 x10^3/uL (4.0-11.0) Red Blood Count 4.01 x10^6/uL (4.30-5.70) Hemoglobin 12.0 g/dL (13.0-17.5) Hematocrit 34.5 % (39.0-53.0) Mean Corpuscular Volume 86 fL (79-100) Mean Corpuscular Hemoglobin 30 pg (25-35) Mean Corpuscular Hemoglobin Concent 35 g/dL (31-37) Red Cell Distribution Width 13.4 % (11.5-14.5) Platelet Count 450 x10^3/uL (140-400) Neutrophils (%) (Auto) 72 % (31-73) Lymphocytes (%) (Auto) 16 % (24-48) Monocytes (%) (Auto) 10 % (0-9) Eosinophils (%) (Auto) 1 % (0-3) Basophils (%) (Auto) 0 % (0-3) Neutrophils # (Auto) 7.8 x10^3/uL (1.8-7.7) Lymphocytes # (Auto) 1.8 x10^3/uL (1.0-4.8) Monocytes # (Auto) 1.1 x10^3/uL (0.0-1.1) Eosinophils # (Auto) 0.1 x10^3/uL (0.0-0.7) Basophils # (Auto) 0.0 x10^3/uL (0.0-0.2) Sodium Level 138 mmol/L (136-145) Potassium Level 4.2 mmol/L (3.5-5.1) Chloride Level 103 mmol/L (98-107) Carbon Dioxide Level 28 mmol/L (21-32) Anion Gap 7 (6-14) Blood Urea Nitrogen 25 mg/dL (8-26) Creatinine 1.4 mg/dL (0.7-1.3) Estimated GFR (Cockcroft-Gault) 53.0 BUN/Creatinine Ratio 18 (6-20) Glucose Level 95 mg/dL (70-99) Calcium Level 8.5 mg/dL (8.5-10.1) Total Bilirubin 0.4 mg/dL (0.2-1.0) Aspartate Amino Transf (AST/SGOT) 22 U/L (15-37) Alanine Aminotransferase (ALT/SGPT) 33 U/L (16-63) Alkaline Phosphatase 53 U/L (46-116) Total Protein 7.1 g/dL (6.4-8.2) Albumin 2.5 g/dL (3.4-5.0) Albumin/Globulin Ratio 0.5 (1.0-1.7) Test 03/09/21 16:59 03/09/21 20:25 03/10/21 08:18 03/10/21 11:35 Glucose (Fingerstick) 425 mg/dL (70-99) 373 mg/dL (70-99) 121 mg/dL (70-99) 232 mg/dL (70-99) Laboratory Tests Test 03/09/21 16:59 03/09/21 20:25 03/10/21 08:18 03/10/21 11:35 Glucose (Fingerstick) 425 mg/dL (70-99) 373 mg/dL (70-99) 121 mg/dL (70-99) 232 mg/dL (70-99) Brief Hospital Course Assessment/Plan Assessment/Plan A/P: Acute respiratory failure with hypoxia -due to COVID-19 with COVID-19 related pneumonia. Will get standard care treatment with steroids and remdesivir wean O2. COVID-19 -empiric steroids and remdesivir. Supportive care and wean O2 as tolerated. PANDA -likely vasomotor nephropathy. Will monitor renal function hydrate. Hyponatremia -likely nutritional. Well monitor p.o. intake will give supplemental nutrition if necessary. Prediabetes - with hyperglycemia - likely has DM2, will place on basal bolus plus insulin while inpatient HTN - hold home lisinopril for PANDA, can resume if renal function improves, will give prn hydralazine and labetalol FEN - ADA PPX - heparin FULL CODE Dispo - inpatient History of Present Illness History of Present Illness Mr Nguyen is a 55-year-old male w/ PMHx prediabetes, HTN who arrives ambulatory to the emergency department complaining of continued shortness of breath. Patient was diagnosed with coronavirus 02/26/2021 and has continued to be short of breath. The patient believes he should have had some improvement in his symptoms however he is continue to be short of air at rest. Patient also states he has had diarrhea during this time as well and actually has had several "accidents". Had myalgias as well as chills as well as loss of appetite. In ED had oxygen saturations in the mid 80s, improved with 4L NCO2. 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 He did have his first dose of the Pfizer vaccine on 02/10/2021 and was scheduled for his second dose prior to his symptoms beginning. EKG appears normal sinus rhythm with a ventricular rate of 84 bpm. There is no acute ST/T wave changes to denote ischemia. This is an otherwise normal- appearing EKG. Chest radiograph concerning for bilateral interstitial changes Labs WBC 7, Hb 12.8, platelets 260, NA 131, K4.1, BUN 11, CR 1.5, glucose 222, calcium 8.3, albumin 2.8, troponin 0, CRP 128.3, LFTs within normal laboratory limits. Admitted for further care. 03-05 patchy bilateral opacities. No pleural effusion or pneumothorax. No acute osseous abnormality. 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 Will get standard care treatment with steroids and remdesivir wean O2. COVID-19 -empiric steroids and remdesivir. Supportive care and wean O2 as tolerated. PANDA -likely vasomotor nephropathy. Will monitor renal function hydrate. Hyponatremia -likely nutritional.monitor p.o. intake will give supplemental nutrition if necessary. Prediabetes - with hyperglycemia - likely has DM2, basal bolus plus insulin while inpatient HTN - hold home lisinopril for PANDA, can resume if renal function improves, will give prn hydralazine and labetalol FEN - ADA PPX - heparin FULL CODE Dispo - inpatient 03-06 patchy bilateral opacities. No pleural effusion or pneumothorax. No acute osseous abnormality. 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 Will get standard care treatment with steroids and remdesivir wean O2. COVID-19 -empiric steroids and remdesivir. Supportive care and wean O2 as tolerated. PANDA -likely vasomotor nephropathy. Will monitor renal function hydrate. Hyponatremia -likely nutritional.monitor p.o. intake will give supplemental nutrition if necessary. Prediabetes - with hyperglycemia - likely has DM2, basal bolus plus insulin while inpatient HTN - hold home lisinopril for PANDA, can resume if renal function improves, will give prn hydralazine and labetalol FEN - ADA PPX - heparin FULL CODE Dispo - inpatient 03-07 BP LABILE IV HYDRALAZINE ADDED PRN 10 MG Q 4 HRS patchy bilateral opacities. No pleural effusion or pneumothorax. 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 Will get standard care treatment with steroids and remdesivir wean O2. COVID-19 -empiric steroids and remdesivir. Supportive care and wean O2 as tolerated. PANDA -likely vasomotor nephropathy. Will monitor renal function hydrate. Hyponatremia -likely nutritional.monitor p.o. intake will give supplemental nutrition if necessary. Prediabetes - with hyperglycemia - likely has DM2, basal bolus plus insulin while inpatient HTN - hold home lisinopril for PANDA, can resume if renal function improves, will give prn hydralazine and labetalol FEN - ADA d/w rn PPX - heparin FULL CODE Dispo - inpatient 03-08 BP LABILE IV HYDRALAZINE ADDED PRN 10 MG Q 4 HRS and topral xl 25 mg po daily patchy bilateral opacities. No pleural effusion or pneumothorax. 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 Will get standard care treatment with steroids and remdesivir wean O2. COVID-19 -empiric steroids and remdesivir. Supportive care and wean O2 as tolerated. PANDA -likely vasomotor nephropathy. Will monitor renal function hydrate. Hyponatremia -likely nutritional.monitor p.o. intake will give supplemental nutrition if necessary. Prediabetes - with hyperglycemia - likely has DM2, basal bolus plus insulin while inpatient HTN - hold home lisinopril for PANDA, can resume if renal function improves, will give prn hydralazine and labetalol MIR - MAIA d/w rn PPX - heparin FULL CODE Dispo - inpatient 03-09 ON 4 LITERS NC BP LABILE IV HYDRALAZINE ADDED PRN 10 MG Q 4 HRS and toprol xl 37.5 mg po daily hopefully home 03-10 patchy bilateral opacities. No pleural effusion or pneumothorax. 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 Will get standard care treatment with steroids and remdesivir wean O2. COVID-19 -empiric steroids and remdesivir. Supportive care and wean O2 as tolerated. PANDA -likely vasomotor nephropathy. Will monitor renal function hydrate. Hyponatremia -likely nutritional.monitor p.o. intake will give supplemental nutrition if necessary. Prediabetes - with hyperglycemia - likely has DM2, basal bolus plus insulin whil e inpatient HTN - hold home lisinopril for PANDA, can resume if renal function improves, will give prn hydralazine and labetalol MIR CARVALHO d/w rn PPX - heparin FULL CODE Dispo - inpatient 03/10 Patient seen and examined at bedside. Very eager to discharge home, removed oxygen and patient maintaining saturations in the 90s. Blood pressure still somewhat high but patient says he can follow-up with PCP within a few days. Otherwise discharge home. Discharge Information Condition at Discharge: Improved Follow Up: Weeks Disposition/Orders: D/C to Home Scheduled Amlodipine Besylate (Amlodipine Besylate) 10 Mg Tablet, 10 MG PO DAILY for htn for 30 Days, #30 Prescribed by: RICHARD CHEEMA MD on 03/10/21 1426 Metoprolol Succinate (Metoprolol Succinate ( Xl )) 25 Mg Tab.er.24h, 37.5 MG PO DAILY for htn for 30 Days, #45 Prescribed by: RICHARD CHEEMA MD on 03/10/21 1426 Discontinued Medications Lisinopril (Lisinopril) 20 Mg Tablet, 20 MG PO DAILY for FOR HYPERTENSION, #30 Ref 0 (Reported) Entered as Reported by: SUMMER JOE on 03/04/21 1123 Last Action: HELD on 03/04/21 1142 by RICHARD TERRAZAS MD Justicifation of Admission Dx: Justifications for Admission: Justification of Admission Dx: N/A RICHARD CHEEMA MD Mar 10, 2021 14:30
--- NOTE | 2021-03-10 15:01 | NUR ---
Discharge Note: LISANDRA OSBORNE Discharge instructions and discharge home medications reviewed with Patient and a copy given. All questions have been answered and understanding verbalized. The following instructions and handouts were given: follow up instructions, medication education, prescritions sent electronically Discontinued lines and drains: 20 guage right ac, tip intact, patient tolerated well. Patient discharged to home with self care via self.
== END 2021-03-10 14:58 | disposition home or self-care (01) | DRG 177 ==
LOC: ER 06:29 → ED HOLD 07:45 → 5 NORTH 10:51
PROVIDERS: ADMIT Internal Medicine; ATTEND Internal Medicine
PROC: XW033E5 Introduction of Remdesivir Anti-infective into Peripheral Vein, Percutaneous Approach, New Technology Group 5 (ICD-10-PCS; principal; 2021-03-05)
DX: U07.1 COVID-19 (principal); J96.01 Acute respiratory failure with hypoxia; N17.0 Acute kidney failure with tubular necrosis; J12.82 Pneumonia due to coronavirus disease 2019; E87.1 Hypo-osmolality and hyponatremia; E11.65 Type 2 diabetes mellitus with hyperglycemia; I10 Essential (primary) hypertension; Z82.49 Family history of ischemic heart disease and other diseases of the circulatory system; Z83.3 Family history of diabetes mellitus; Z79.84 Long term (current) use of oral hypoglycemic drugs; Z79.899 Other long term (current) drug therapy
CPT/HCPCS: 36415; 71045; 80053; 82728; 82962; 83036; 83880; 84484; 85007; 85025; 86140; 93005; 96374; J0360; J1100; J1644; J1815; J2930; J3490; J7030; J7050; 99285-25; G0378

== ENCOUNTER 2021-10-07 09:32 | Emergency (ER) | payer OTHER ==
[~2021-10-07] VITALS: Ht 170.2 cm; Wt 127.4 kg
[~2021-10-07 09:32] MED LIST changes: +AMLO-187 PO; -LISI1TAB20 PO; +LISI1TAB39 PO; +LISI20TA18 PO; +METO-239 PO
[2021-10-07] MEDS ORDERED: IV NORMAL SALINE 1000ML BAG 1,000 ML IV ONE ×2 (09:45→11:30)
[2021-10-07] MEDS ORDERED: INSULIN REGULAR 100 UNIT/ML 3ML VIAL. IV ONE (09:45)
--- NOTE | 2021-10-07 10:01 | PHYS DOC ---
Past Medical History Past Medical History: Diabetes-Type II, Hypertension Past Surgical History: Other Additional Past Surgical Histo: Hernia repair Smoking Status: Never Smoker Alcohol Use: None Drug Use: None Adult General Chief Complaint Chief Complaint: HYPERGLYCEMIA HPI HPI Patient is a 56 year old male presenting to the emergency department for 2 primary complaints. He says that his blood sugar has been elevated at greater than 500 and when he checked it this morning. He says that he takes Metformin and Lantus and his diabetes is cared for by Dr. Barragan. He says starting 2 days ago he started having redness and swelling to his right lower extremity. 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 He denies any known trauma or overuse. He denies fevers chills chest pain shortness of breath or other systemic complaints. He is in no acute distress with normal vital signs. Review of Systems Review of Systems Constitutional: Denies fever or chills [] Eyes: Denies change in visual acuity, redness, or eye pain [] HENT: Denies nasal congestion or sore throat [] Respiratory: Denies cough or shortness of breath [] Cardiovascular: No additional information not addressed in HPI [] GI: Denies abdominal pain, nausea, vomiting, bloody stools or diarrhea [] : Denies dysuria or hematuria [] Musculoskeletal: Right lower extremity pain and swelling Integument: Redness and swelling Neuro: Denies headache, focal weakness or sensory changes [] All other systems were reviewed and found to be within normal limits, except as documented in this note. Current Medications Current Medications Current Medications Medications (Trade) Dose Ordered Sig/Ely Start Time Stop Time Status Last Admin Dose Admin Ceftriaxone Sodium (Rocephin) 2 gm 1X ONCE 10/07/21 11:30 10/07/21 11:31 DC 10/07/21 11:43 2 GM Insulin Human Regular (HumuLIN R VIAL) 10 unit 1X ONCE 10/07/21 09:45 10/07/21 09:47 DC 10/07/21 10:18 10 UNIT Sodium Chloride 1,000 ml @ 1,000 mls/hr 1X ONCE 10/07/21 11:30 10/07/21 12:29 10/07/21 11:46 1,000 MLS/HR Allergies Allergies Allergies Coded Allergies Type Severity Reaction Last Updated Verified No Known Drug Allergies 11/18/13 No Physical Exam Physical Exam Constitutional: Well developed, well nourished, no acute distress, non-toxic appearance. [] HENT: Normocephalic, atraumatic, bilateral external ears normal, oropharynx moist, no oral exudates, nose normal. [] Eyes: PERRLA, EOMI, conjunctiva normal, no discharge. [] Neck: Normal range of motion, no tenderness, supple, no stridor. [] Cardiovascular:Heart rate regular rhythm, no murmur [] Lungs & Thorax: Bilateral breath sounds clear to auscultation [] Abdomen: Bowel sounds normal, soft, no tenderness, no masses, no pulsatile masses. [] Skin: Warm, dry, no erythema, no rash. [] Back: No tenderness, no CVA tenderness. [] Extremities: Right calf with circumferential erythema warmth and tenderness to palpation. Distally he has 2+ dorsalis pedis and posterior tibial artery pulses. Neurologic: Alert and oriented X 3, normal motor function, normal sensory function, no focal deficits noted. [] Current Patient Data Vital Signs Vital Signs Date Time Temp Pulse Resp B/P (MAP) Pulse Ox O2 Delivery O2 Flow Rate FiO2 10/07/21 09:46 98.1 81 16 144/84 (104) 95 Room Air 98.1 Lab Values Laboratory Tests Test 10/07/21 09:44 10/07/21 10:10 10/07/21 11:05 10/07/21 11:46 Glucose (Fingerstick) 398 mg/dL (70-99) H 269 mg/dL (70-99) H White Blood Count 7.8 x10^3/uL (4.0-11.0) Red Blood Count 4.31 x10^6/uL (4.30-5.70) Hemoglobin 12.2 g/dL (13.0-17.5) L Hematocrit 36.8 % (39.0-53.0) L Mean Corpuscular Volume 86 fL (79-100) Mean Corpuscular Hemoglobin 28 pg (25-35) Mean Corpuscular Hemoglobin Concent 33 g/dL (31-37) Red Cell Distribution Width 13.5 % (11.5-14.5) Platelet Count 210 x10^3/uL (140-400) Neutrophils (%) (Auto) 74 % (31-73) H Lymphocytes (%) (Auto) 17 % (24-48) L Monocytes (%) (Auto) 7 % (0-9) Eosinophils (%) (Auto) 1 % (0-3) Basophils (%) (Auto) 1 % (0-3) Neutrophils # (Auto) 5.8 x10^3/uL (1.8-7.7) Lymphocytes # (Auto) 1.3 x10^3/uL (1.0-4.8) Monocytes # (Auto) 0.5 x10^3/uL (0.0-1.1) Eosinophils # (Auto) 0.1 x10^3/uL (0.0-0.7) Basophils # (Auto) 0.0 x10^3/uL (0.0-0.2) Sodium Level 136 mmol/L (136-145) Potassium Level 4.4 mmol/L (3.5-5.1) Chloride Level 98 mmol/L (98-107) Carbon Dioxide Level 26 mmol/L (21-32) Anion Gap 12 (6-14) Blood Urea Nitrogen 27 mg/dL (8-26) H Creatinine 1.9 mg/dL (0.7-1.3) H Estimated GFR (Cockcroft-Gault) 37.1 BUN/Creatinine Ratio 14 (6-20) Glucose Level 456 mg/dL (70-99) H Calcium Level 8.5 mg/dL (8.5-10.1) Total Bilirubin 0.4 mg/dL (0.2-1.0) Aspartate Amino Transferase (AST) 18 U/L (15-37) Alanine Aminotransferase (ALT) 28 U/L (16-63) Alkaline Phosphatase 69 U/L (46-116) Total Protein 7.3 g/dL (6.4-8.2) Albumin 3.2 g/dL (3.4-5.0) L Albumin/Globulin Ratio 0.8 (1.0-1.7) L Urine Collection Type Unknown Urine Color (Auto) Colorless Urine Turbidity Clear Urine pH (Auto) 5.5 (<5.0-8.0) Urine Specific [place] 1.032 (1.000-1.030) Urine Protein (Auto) Negative mg/dL (Negative) Urine Glucose (Auto)(UA) >=1000 mg/dL (Negative) Urine Ketones (Auto) Trace mg/dL (Negative) Urine Blood (Auto) Small (Negative) Urine Nitrite Negative (Negative) Urine Bilirubin (Auto) Negative (Negative) Urine Urobilinogen (Auto) Normal mg/dL (Normal) Urine Leukocyte Esterase (Auto) Negative (Negative) Urine RBC 3-5 /HPF (0-2) Urine WBC 0 /HPF (0-4) Urine Bacteria 0 /HPF (0-FEW) Laboratory Tests 10/07/21 10:10 Laboratory Tests 10/07/21 10:10 EKG EKG [] Radiology/Procedures Radiology/Procedures [] Course & Med Decision Making Course & Med Decision Making Patient likely does have a cellulitis based off his physical exam. I will check labs right lower extremity ultrasound and reassess. I was able to speak to Dr. Barragan and he said the patient has been very noncompliant with visits and medication regimen says his hemoglobin A1c was 17. Patient is improving here as his blood sugar is down into the 200 range and he says he feels well and would like to go home. Given patient appears well with normal vital signs benign physical exam work-up I will discharge him with Keflex told him to drink plenty of fluids as his renal function is slightly worse which is likely attributable to his hyperglycemia and also his recent GI infection with nausea vomiting and diarrhea but I told him the creatinine will need to be repeated. He says that he has an appoint with Dr. Barragan in 2 days. He was told all incidental findings on labs and imaging including the inflamed lymph node that will need to be followed and he verbalized understanding. I did speak to Dr. Barragan and he recommended doubling his Lantus and starting him on 10 units of Humalog before meals. Patient will be discharged in stable condition told to keep his follow-up appointment and come back to emergency department sooner with worsening pain fevers or other general concerns. Patient aware and agreeable with plan and verbalized understanding of the above instructions. Dragon Disclaimer Dragon Disclaimer This electronic medical record was generated, in whole or in part, using a voice recognition dictation system. Departure Departure Impression: Primary Impression: Cellulitis of right lower leg Additional Impression: Hyperglycemia due to diabetes mellitus Disposition: HOME / SELF CARE / HOMELESS Condition: STABLE Referrals: Myron BARRAGAN MD (PCP) Patient Instructions: Cellulitis Scripts Insulin Lispro (HUMALOG) 100 Unit/1 Ml Vial 10 UNIT SQ TIDAC for 30 Days, EACH Prov: MAYE DANIEL DO 10/07/21 Insulin Glargine,Hum.rec.anlog (LANTUS SOLOSTAR) 100 Unit/1 Ml Insuln.pen 20 UNIT SQ QHS, #15 ML 0 Refills Prov: MAYE DANIEL DO 10/07/21 Cephalexin (KEFLEX) 500 Mg Capsule 1 CAP PO TID, #21 CAP Prov: MAYE DANIEL DO 10/07/21 Problem Qualifiers MAYE DANIEL DO Oct 07, 2021 10:01
--- NOTE | 2021-10-07 10:29 | RAD ---
US DPLX VENOUS EXTREMITY LOWER RT History: Reason: R leg pain and swelling / Spl. Instructions: / History: Comparison: None. Technique: Multiple longitudinal and transverse high resolution real-time images of the venous system of right lower extremity were obtained with color and Doppler sampling. Findings: The common femoral, superficial femoral, popliteal and proximal calf veins are all patent and demonst rate normal flow and compressibility. Normal respiratory phasicity and augmentation is present. Mildly enlarged right inguinal lymph nodes largest measures 3.5 x 1.7 x 1.3 cm. Impression: 1. No evidence of deep vein thrombosis. 2. Mildly enlarged right inguinal lymph nodes. Recommend clinical evaluation and imaging follow-up i f indicated. Electronically signed by: Iván Rice DO (10/07/2021 10:27 AM) [id number]
[2021-10-07 10:39] LABS: CALCIUM 8.5 mg/dL (8.5-10.1); CREATININE 1.9 mg/dL (0.7-1.3); GFR 37.1; POTASSIUM 4.4 mmol/L (3.5-5.1)
[2021-10-07 10:44] LABS: BASO % 1 % (0-3); EOS # 0.1 x10^3/uL (0.0-0.7); EOS % 1 % (0-3); HEMATOCRIT 36.8 % (39.0-53.0); HEMOGLOBIN 12.2 g/dL (13.0-17.5); LYMPH # 1.3 x10^3/uL (1.0-4.8); LYMPH % 17 % (24-48); MEAN CORPUSCULAR HEMOGLOBIN 28 pg (25-35); MEAN CORPUSCULAR HGB CONC 33 g/dL (31-37); MEAN CORPUSCULAR VOLUME 86 fL (79-100); MONO # 0.5 x10^3/uL (0.0-1.1); MONO % 7 % (0-9); NEUT # 5.8 x10^3/uL (1.8-7.7); NEUT % 74 % (31-73); PLATELET COUNT 210 x10^3/uL (140-400); RED BLOOD COUNT 4.31 x10^6/uL (4.30-5.70); RED CELL DISTRIBUTION WIDTH 13.5 % (11.5-14.5); WHITE BLOOD COUNT 7.8 x10^3/uL (4.0-11.0)
[2021-10-07 10:47] LABS: ALBUMIN 3.2 g/dL (3.4-5.0); ALBUMIN/GLOBULIN RATIO 0.8 (1.0-1.7); TOTAL BILIRUBIN 0.4 mg/dL (0.2-1.0); TOTAL PROTEIN 7.3 g/dL (6.4-8.2)
[2021-10-07] MEDS ORDERED: cefTRIAXone IV Push 1 GM VIAL. IVP ONE (11:30)
[2021-10-07 11:31] LABS: BACTERIA,URINE 0 /HPF (0-FEW); WBC,URINE 0 /HPF (0-4)
[2021-10-07 12:18] VITALS: BP 148/93
[2021-10-07] MEDS ORDERED: CEPH500C PO (12:20)
[2021-10-07] MEDS ORDERED: INSU100I13 SQ (12:20)
[2021-10-07] MEDS ORDERED: INSU100V6 SQ (12:20)
== END 2021-10-07 12:38 | disposition home or self-care (01) ==
LOC: ER 09:32
DX: L03.115 Cellulitis of right lower limb (principal); E11.65 Type 2 diabetes mellitus with hyperglycemia; I10 Essential (primary) hypertension
CPT/HCPCS: 36415; 80053; 81001; 82962; 85025; 93971; 96361; 96374; 96375; 99284; J0696; J1815; J7030